=== PATIENT | female | born 1960 | race Hispanic/Latino ===

== ENCOUNTER 2017-05-16 08:44 | Day surgery (SDC) | payer MEDICARE ==
[2017-05-16] MEDS ORDERED: Lidocaine 1% Inj (20ml) ONE (11:59)
[2017-05-16] MEDS ORDERED: Bupivacaine 0.5% Inj(30mL) ONE (11:59)
[2017-05-16 12:52] VITALS: O2SAT 96
--- NOTE | 2017-05-16 13:09 | PCM.SURG1 ---
Surgeon's Initial Post Op Note - Surgeon's Notes Surgeon: Dr. Vogel Pipe Bowls Paint Trimmer: Valerie PGY1 Type of Anesthesia: Local Pre-Operative Diagnosis: left scalp mass Operative Findings: see operative report Post-Operative Diagnosis: same Operation Performed: Excision of left scalp mass Specimen/Specimens Removed: left scalp mass Estimated Blood Loss: EBL {In ML}: 5 Blood Products Given: N/A Drains Used: No Drains Post-Op Condition: Good Date of Surgery/Procedure: 05/16/17 Time of Surgery/Procedure: 13:08
[2017-05-16 13:24] VITALS: RESP 18; TEMP 98.1
[2017-05-16 13:33] VITALS: BMI 21.9
[2017-05-16 14:08] VITALS: BP 124/70; PULSE 98
--- NOTE | 2017-05-17 08:27 | OP ---
PROCEDURE DATE: 05/16/2017 PREOPERATIVE DIAGNOSIS: Left temporal scalp mass measuring 4.4 x 3 cm. POSTOPERATIVE DIAGNOSIS: Left temporal scalp mass measuring 4.4 x 3 cm. PROCEDURE PERFORMED: Excision of the left temporal subcutaneous mass with layered closure. SURGEON: Dr. Vogel. ELECTRIC MOTOR FITTER: Dr. Padilla. TYPE OF ANESTHESIA: Local anesthesia. ESTIMATED BLOOD LOSS: Minimal. SPECIMEN: Subcutaneous mass representing lipoma. DESCRIPTION OF PROCEDURE: The patient is a 56-year-old female who was complaining of a mass on the left temporal area associated with tenderness and discomfort. The mass was increasing in size when she was seen in the office and was scheduled for the excision of the mass. The patient was brought to the operating room and placed on operating room table in supine position. The patient was connected to the EKG, blood pressure, and pulse oximetry monitors. The patient then was prepped and draped in the usual sterile fashion. First, a standard time-out procedure took place and everybody in the room agreed as to the patient's identity, diagnosis, and procedure to be performed. Using 1% lidocaine mixed with Marcaine, the area of the incision was infiltrated and an incision was made in order to excise the lesion. The excision was located directly over the mass. Once the incision was made for about 4 cm, I then carefully dissected out the area exposed the lipoma. It was carefully raised from the underlying periosteum and completely removed. The wound was copiously irrigated and then closed using 3-0 Vicryl for the deep dermal layer and 4-0 Monocryl for skin. A sterile Dermabond dressing was applied to the wound. The patient tolerated the procedure and there were no complications. The patient was awakened and transferred to the recovery room for further observation. Rafat Vogel MD
== END 2017-05-16 14:30 | disposition home or self-care (01) ==
LOC: OPSURG 08:44
PROVIDERS: ATTEND General Practice
DX: D17.0 Benign lipomatous neoplasm of skin and subcutaneous tissue of head, face and neck (principal); F31.9 Bipolar disorder, unspecified; Z88.6 Allergy status to analgesic agent

== ENCOUNTER 2018-01-26 11:00 | Emergency (ER) | payer MEDICARE ==
[2018-01-26 11:06] VITALS: BMI 21.1
[2018-01-26 11:19] VITALS: RESP 18; TEMP 98.2
--- NOTE | 2018-01-26 12:50 | ED PDOC ---
Arrival/HPI <Cassie Zamarripa - Last Filed: 01/26/18 15:39> - History of Present Illness Narrative History of Present Illness (Text): 01/26/18 12:50 Pt is a 57 yo F with pmhx of bipolar disorder and chronic arthritis of the neck, who presents to the ED for b/l leg pain. She states that her pain is currently an 8/10 and is diffusely present in both the legs equally. She states that her legs felt heavy and having a throbbing type pain, she is able to move her legs but complains of pain in the legs when she plantar or dorsiflexes, and flexes or extends her knees. She admits to being bed ridden for the past 3 days and she also admits that her legs feel like "cement blocks". She admits to subjective fevers, headache, abd pain, diarrhea, leg pain, vomiting. She denies chest pain, SOB, cough, dysuria or frequency. Pmhx: Bipolar disorder, chronic arthritis of c-spine Pshx: All: Acetaminophen - RLS Soc: Quit smoking last week, smoked for 40 years before then, denies etoh or illicit drug use Fam: Denies <Leeroy Jeffersonhammad - Last Filed: 01/26/18 16:13> - General Chief Complaint: Lower Extremity Problem/Injury Time Seen by Provider: 01/26/18 11:47 Past Medical History - Provider Review Nursing Documentation Reviewed: Yes - Infectious Disease Hx of Infectious Diseases: None - Tetanus Immunization Tetanus Immunization: Unknown - Past Medical History Past Medical History: No Previous - Cardiac Hx Pacemaker: No - Pulmonary Hx Respiratory Disorders: No - Neurological Hx Paralysis: No - HEENT Hx HEENT Disorder: No - Renal Hx Renal Disorder: No - Endocrine/Metabolic Hx Endocrine Disorders: No - Hematological/Oncological Hx Blood Transfusions: No - Integumentary Hx Dermatological Disorder: No - Musculoskeletal/Rheumatological Hx Musculoskeletal Disorders: Yes Hx Falls: Yes - Gastrointestinal Hx Gastrointestinal Disorders: No - Genitourinary/Gynecological Hx Genitourinary Disorders: No - Psychiatric Hx Emotional Abuse: No Hx Physical Abuse: No Hx Substance Use: No - Past Surgical History Past Surgical History: No Previous - Surgical History Other/Comment: oophorectomy - Anesthesia Hx Anesthesia Reactions: No Hx Malignant Hyperthermia: No - Suicidal Assessment Feels Threatened In Home Enviroment: No <Slim Jefferson - Last Filed: 01/26/18 16:13> Family/Social History - Physician Review Nursing Documentation Reviewed: Yes Family/Social History: No Known Family HX Smoking Status: Heavy Smoker > 10 Cigarettes Daily Hx Alcohol Use: No Hx Substance Use: No Hx Substance Use Treatment: No <Slim Jefferson - Last Filed: 01/26/18 16:13> Allergies/Home Meds <DallinCassie - Last Filed: 01/26/18 15:39> <Slim Jefferson - Last Filed: 01/26/18 16:13> Allergies/Adverse Reactions: Allergies acetaminophen Adverse Reaction (Severe, Verified 01/26/18 11:07) NAUSEA aspirin Adverse Reaction (Severe, Verified 01/26/18 11:07) NAUSEA Home Medications: Home Meds Medication Instructions Recorded Confirmed Buspirone HCl 15 mg PO TID 05/26/16 05/16/17 Clonazepam [Klonopin] 0.5 mg PO BID 05/26/16 05/16/17 HYDROmorphone [Dilaudid 2 mg Tab] 2 mg PO 5XD 05/26/16 05/16/17 Mirtazapine [Remeron] 30 mg PO HS 05/26/16 05/16/17 Paroxetine HCl [Paxil] 40 mg PO DAILY 05/26/16 05/16/17 QUEtiapine [SEROquel XR] 300 mg PO HS 05/26/16 05/16/17 QUEtiapine [SEROquel] 100 mg PO HS 05/26/16 05/16/17 Temazepam [Restoril] 15 mg PO HS 05/26/16 05/16/17 Fentanyl [Duragesic Patch] 1 patch TD Q72 05/16/17 05/16/17 Mirtazapine [Remeron] 30 mg PO HS 05/16/17 05/16/17 traMADol [Ultram] 50 mg PO Q6 PRN 05/16/17 05/16/17 Review of Systems - Physician Review All systems were reviewed & negative as marked: Yes - Review of Systems Constitutional: Fevers. absent: Weight Change, Night Sweats Respiratory: absent: SOB, Cough Cardiovascular: absent: Chest Pain Gastrointestinal: Abdominal Pain, Diarrhea, Vomiting. absent: Constipation, Nausea <Slim Jefferson - Last Filed: 01/26/18 16:13> Physical Exam Vital Signs Temp Pulse Resp BP Pulse Ox 01/26/18 13:07 98.2 F 97 H 18 150/90 98 01/26/18 11:00 98.2 F 107 H 18 153/99 H 98 <Cassie Zamarripa - Last Filed: 01/26/18 15:39> Vital Signs Reviewed: Yes Vital Signs Temp Pulse Resp BP Pulse Ox 01/26/18 11:00 98.2 F 107 H 18 153/99 H 98 Temperature: Afebrile Blood Pressure: Hypertensive Pulse: Tachycardic Respiratory Rate: Normal Appearance: Positive for: Well-Appearing, Non-Toxic Pain Distress: Mild Mental Status: Positive for: Alert and Oriented X 3 - Systems Exam Head: Present: Atraumatic, Normocephalic Pupils: Present: PERRL Extroacular Muscles: Present: EOMI Conjunctiva: Present: Normal Respiratory/Chest: Present: Clear to Auscultation, Good Air Exchange. No: Respiratory Distress, Accessory Muscle Use, Wheezes, Rales, Rhonchi Cardiovascular: Present: Regular Rate and Rhythm, Normal S1, S2. No: Murmurs, Rub, Gallop Abdomen: Present: Tenderness (present in LUQ with palpation, no radiation), Normal Bowel Sounds. No: Distention, Rebound, Guarding Lower Extremity: Present: Normal Inspection, Tenderness (diffuse tenderness upon palpation, present b/l. Skin is intact, no rashes present. No swelling or pitting edema noted on exam.), Neurovascularly Intact, Capillary Refill < 2 s. No: Edema, Cyanosis, Swelling, Erythema, Deformity Neurological: Present: GCS=15, Speech Normal, Motor Func Grossly Intact, Normal Sensory Function, Gait Normal (Walked with the pt, no difficulty in transition from stretcher to chair, ambulated to bathroom with my supervision, no assistance needed when tranisitoning from standing to toilet and back to standing.) Skin: Present: Warm, Dry, Normal Color. No: Rashes Psychiatric: Present: Alert, Oriented x 3, Normal Insight, Normal Concentration <Slim Jefferson - Last Filed: 01/26/18 16:13> Medical Decision Making ED Course and Treatment: 01/26/18 14:30 57 year old female presents to the Emergency Department complaining of bilateral leg discomfort. In agreement with resident note. Patient was seen and evaluated with resident, came up with plan and treatment together. - Lab Interpretations Lab Results: 01/26/18 13:00 01/26/18 13:00 Lab Results 01/26/18 14:20: Urine Color Yellow, Urine Appearance Clear, Urine pH 7.0, Ur Specific Superior 1.010, Urine Protein Negative, Urine Glucose (UA) Negative, U rine Ketones Negative, Urine Blood Trace-intact H, Urine Nitrate Negative, Urine Bilirubin Negative, Urine Urobilinogen 0.2, Ur Leukocyte Esterase Negative, Urine RBC 1 - 3, Urine WBC 0 - 2, Ur Epithelial Cells 6 - 8, Amorphous Sediment Few, Urine Bacteria Many, Urine Other Uyeast 01/26/18 14:20: Urine Opiates Screen Positive H, Urine Methadone Screen Negative, Ur Barbiturates Screen Negative, Ur Phencyclidine Scrn Negative, Ur Amphetamines Screen Negative, U Benzodiazepines Scrn Negative, U Oth Cocaine Metabols Negative, U Cannabinoids Screen Negative 01/26/18 13:00: Sodium 140, Potassium 3.7, Chloride 107, Carbon Dioxide 26, Anion Gap 11, BUN 3 L, Creatinine 0.7, Est GFR ( Amer) > 60, Est GFR (Non-Af Amer) > 60, Random Glucose 109, Calcium 9.0, Phosphorus 3.0, Magnesium 2.1, Total Bilirubin 0.3, AST 24, ALT 16, Alkaline Phosphatase 121, Total Creatine Kinase 49, Total Protein 7.4, Albumin 4.0, Globulin 3.3, Albumin/Globulin Ratio 1.2 01/26/18 13:00: WBC 10.4, RBC 4.75, Hgb 14.6, Hct 42.6, MCV 89.7, MCH 30.7, MCHC 34.3, RDW 14.9 H, Plt Count 375, MPV 8.6, Gran % 72.7 H, Lymph % (Auto) 20.4 L, Lucas % (Auto) 6.5 H, Eos % (Auto) 0.2 L, Baso % (Auto) 0.2, Gran # 7.57 H, Lymph # (Auto) 2.1, Lucas # (Auto) 0.7 H, Eos # (Auto) 0.0, Baso # (Auto) 0.02 - RAD Interpretation Radiology Orders: 01/26/18 12:34 DUPLEX LOWER EXTRM VEIN BILAT [US] Stat <Cassie Zamraripa - Last Filed: 01/26/18 15:39> ED Course and Treatment: 01/26/18 13:59 Pt is a 57 yo F with pmhx detailed above who presents for b/l leg pain. - CBC - CMP - CK - B/l leg doppler 01/26/18 15:09 Progress Note Pts CK and trops are wnl, no elevated WBC and no anemia noted, LFTs are also wnl. Report from leg doppler per radiologist: No sonographic evidence for DVT, in the visualized segments of both LE. Pt is encouraged to f/u with PMD for further f/u of the symptoms. - RAD Interpretation Radiology Orders: 01/26/18 12:34 DUPLEX LOWER EXTRM VEIN BILAT [US] Stat <Slim Jefferson - Last Filed: 01/26/18 16:13> - PA / MECHANICAL CAR CHECKER / Resident Statement / has reviewed & agrees with the documentation as recorded. / has examined the patient and agrees with the treatment plan. - Scribe Statement The provider has reviewed the documentation as recorded by the Scribe Herberth Chatterjee. All medical record entries made by the Scribe were at my direction and personally dictated by me. I have reviewed the chart and agree that the record accurately reflects my personal performance of the history, physical exam, medical decision making, and the department course for this patient. I have also personally directed, reviewed, and agree with the discharge instructions and disposition. <Cassie Zamarripa - Last Filed: 01/26/18 15:39> Disposition/Present on Arrival <Cassie Zamarripa - Last Filed: 01/26/18 15:39> - Present on Arrival Any Indicators Present on Arrival: No History of DVT/PE: No History of Uncontrolled Diabetes: No Urinary Catheter: No History of Decub. Ulcer: No History Surgical Site Infection Following: None - Disposition Have Diagnosis and Disposition been Completed?: Yes Disposition Time: 15:20 Patient Plan: Discharge <Slim Jefferson - Last Filed: 01/26/18 16:13> - Disposition Diagnosis: Leg pain, diffuse Disposition: HOME/ ROUTINE Patient Problems: Current Active Problems Problem Status Onset Leg pain, diffuse Acute Condition: STABLE Discharge Instructions (ExitCare): Muscle and Bone Pain (DC) Additional Instructions: SURYA FUENTES, thank you for letting us take care of you today. Your provider was Dr. Zamarripa and you were treated for BILATERAL LEG PAIN. The emergency medical care you received today was directed at your acute symptoms. If you were prescribed any medication, please fill it and take as directed. It may take several days for your symptoms to resolve. Return to the Emergency Department if your symptoms worsen, do not improve, or if you have any other problems. Please contact your doctor Dr. Dao in 1-2 days to follow up. Bring any paperwork you were given at discharge with you along with any medications you are taking to your follow up visit. Our treatment cannot replace ongoing medical care by a primary care provider outside of the emergency department. Thank you for allowing the [facility] team to be part of your care today. Forms: [employer] ([place])
[2018-01-26 13:18] LABS: BASO # 0.02 K/mm3 (0.0-2.0); BASO % 0.2 % (0.0-3.0); EOS % 0.2 % (1.5-5.0); GRAN # 7.57 (1.4-6.5); GRAN % 72.7 % (50.0-68.0); HEMOGLOBIN 14.6 g/dL (12.0-16.0); LYMPH # 2.1 (1.2-3.4); LYMPH % 20.4 % (22.0-35.0); MEAN CELL VOLUME 89.7 fl (80.0-105.0); MEAN CORPUSCULAR HEMOGLOBIN 30.7 pg (25.0-35.0); MEAN CORPUSCULAR HGB CONC 34.3 g/dl (31.0-37.0); MEAN PLATELET VOLUME 8.6 fl (7.0-11.0); MONO # 0.7 (0.1-0.6); MONO % 6.5 % (1.0-6.0); RBC 4.75 10^6/uL (3.5-6.1); RED CELL DISTRIBUTION WIDTH 14.9 % (11.5-14.5); WHITE BLOOD COUNT 10.4 10^3/ul (4.5-11.0)
[2018-01-26 13:26] LABS: ALB/GLOB RATIO 1.2 (1.1-1.8); ALT/SGPT 16 U/L (7-56); AST/SGOT 24 U/L (14-36); BLOOD UREA NITROGEN 3 mg/dL (7-21); GFR NON-AFRICAN AMERICAN > 60
[2018-01-26 14:41] LABS: URINE BILIRUBIN NEGATIVE (NEGATIVE); URINE BLOOD TRACE-INTACT (NEGATIVE); URINE GLUCOSE (UA) NEGATIVE (NEGATIVE); URINE LEUKOCYTE ESTERASE NEGATIVE Leu/uL (NEGATIVE); URINE PROTEIN NEGATIVE mg/dL (<30 mg/dL); URINE UROBILINOGEN 0.2 E.U./dL (<1 E.U./dL)
[2018-01-26 14:42] LABS: URINE APPEARANCE CLEAR (CLEAR); URINE COLOR YELLOW (YELLOW)
[2018-01-26 14:56] LABS: URINE AMORPHOUS SEDIMENT FEW; URINE BACTERIA MANY (NEG); URINE WBC 0 - 2 /hpf (0-6)
[2018-01-26 15:00] LABS: BENZODIAZEPINES, UR NEGATIVE (NEGATIVE)
--- NOTE | 2018-01-26 15:07 | US ---
HISTORY: Leg pain and swelling. Evaluate for DVT PHYSICIAN(S): Tom Low MD. TECHNIQUE: Duplex sonography and color-flow Doppler with graded compression were used to evaluate the deep venous systems of both lower extremities. FINDINGS: The visualized deep venous systems of both lower extremities are sonographically normal and compressible. Normal wave forms and augmentation are seen. There is no sonographic evidence for deep venous thrombosis in the visualized segments of both lower extremities. IMPRESSION: No sonographic evidence for deep venous thrombosis in the visualized segments of both lower extremities.
[2018-01-26 15:30] LABS: BARBITURATES, UR NEGATIVE (NEGATIVE); OPIATES, UR POSITIVE (NEGATIVE); PHENCYCLIDINE, UR NEGATIVE (NEGATIVE)
[2018-01-26 16:03] VITALS: BP 147/89; PULSE 90; O2SAT 100
== END 2018-01-26 16:07 | disposition home or self-care (01) ==
LOC: ED 11:00
DX: M79.605 Pain in left leg (principal); M79.604 Pain in right leg; M46.92 Unspecified inflammatory spondylopathy, cervical region
CPT/HCPCS: 80053; 81001; 82550; 83735; 84100; 85025; 93970; 99284; G0480

== ENCOUNTER 2018-02-15 14:46 | Inpatient (IN) | payer MEDICARE, OTHER ==
[2018-02-15 14:51] VITALS: BMI 23.3
--- NOTE | 2018-02-15 14:57 | ED PDOC ---
Arrival/HPI - General Chief Complaint: Hip Pain Time Seen by Provider: 02/15/18 14:57 Historian: Patient - History of Present Illness Narrative History of Present Illness (Text): 02/15/18 15:28 A 57 year old female, whose past medical history includes sciatica, bipolar disorder and chronic arthritis of the neck, presents to the emergency department complaining of left hip, knee, leg, and foot pain for the past few days. Patient reports she is unable to ambulate well due to pain. Patient denies any fall/trauma, back pain, or any other complaints at this time. No PMD Past Medical History - Provider Review Nursing Documentation Reviewed: Yes - Infectious Disease Hx of Infectious Diseases: None - Tetanus Immunization Tetanus Immunization: Unknown - Reproductive Menopause: No - Past Medical History Past Medical History: No Previous - Cardiac Hx Pacemaker: No - Pulmonary Hx Respiratory Disorders: No - Neurological Hx Paralysis: No - HEENT Hx HEENT Disorder: No - Renal Hx Renal Disorder: No - Endocrine/Metabolic Hx Endocrine Disorders: No - Hematological/Oncological Hx Blood Transfusions: No - Integumentary Hx Dermatological Disorder: No - Musculoskeletal/Rheumatological Hx Musculoskeletal Disorders: Yes Hx Falls: Yes - Gastrointestinal Hx Gastrointestinal Disorders: No - Genitourinary/Gynecological Hx Genitourinary Disorders: No - Psychiatric Hx Emotional Abuse: No Hx Physical Abuse: No Hx Substance Use: No - Past Surgical History Past Surgical History: No Previous - Surgical History Other/Comment: oophorectomy - Anesthesia Hx Anesthesia Reactions: No Hx Malignant Hyperthermia: No - Suicidal Assessment Feels Threatened In Home Enviroment: No Family/Social History - Physician Review Nursing Documentation Reviewed: Yes Family/Social History: No Known Family HX Smoking Status: Heavy Smoker > 10 Cigarettes Daily Hx Alcohol Use: No Hx Substance Use: No Hx Substance Use Treatment: No Allergies/Home Meds Allergies/Adverse Reactions: Allergies acetaminophen Adverse Reaction (Severe, Verified 01/26/18 11:07) NAUSEA aspirin Adverse Reaction (Severe, Verified 01/26/18 11:07) NAUSEA Home Medications: Home Meds Medication Instructions Recorded Confirmed Buspirone HCl 15 mg PO TID 05/26/16 05/16/17 Clonazepam [Klonopin] 0.5 mg PO BID 05/26/16 05/16/17 HYDROmorphone [Dilaudid 2 mg Tab] 2 mg PO 5XD 05/26/16 05/16/17 Paroxetine HCl [Paxil] 40 mg PO DAILY 05/26/16 05/16/17 QUEtiapine [SEROquel XR] 300 mg PO HS 05/26/16 05/16/17 QUEtiapine [SEROquel] 100 mg PO HS 05/26/16 05/16/17 RX: Mirtazapine [Remeron] 30 mg PO HS 05/26/16 05/16/17 Temazepam [Restoril] 15 mg PO HS 05/26/16 05/16/17 Fentanyl [Duragesic Patch] 1 patch TD Q72 05/16/17 05/16/17 RX: Mirtazapine [Remeron] 30 mg PO HS 05/16/17 05/16/17 RX: traMADol [Ultram] 50 mg PO Q6 PRN 05/16/17 05/16/17 Review of Systems - Physician Review All systems were reviewed & negative as marked: Yes - Review of Systems Constitutional: absent: Other (no falls) Musculoskeletal: Other (left hip, leg, foot, and knee pain; unable to ambulate due to pain.). absent: Back Pain Physical Exam Vital Signs Reviewed: Yes Vital Signs Temp Pulse Resp BP Pulse Ox 02/15/18 14:51 98.6 F 72 20 104/67 99 Temperature: Afebrile Blood Pressure: Normal Pulse: Regular Respiratory Rate: Normal Appearance: Positive for: Well-Appearing, Non-Toxic, Comfortable Pain Distress: None Mental Status: Positive for: Alert and Oriented X 3 - Systems Exam Head: Present: Atraumatic, Normocephalic Pupils: Present: PERRL Extroacular Muscles: Present: EOMI Conjunctiva: Present: Normal Mouth: Present: Moist Mucous Membranes Neck: Present: Normal Range of Motion Respiratory/Chest: Present: Clear to Auscultation, Good Air Exchange. No: Respiratory Distress, Accessory Muscle Use Cardiovascular: Present: Regular Rate and Rhythm, Normal S1, S2. No: Murmurs Abdomen: No: Tenderness, Distention, Peritoneal Signs Back: Present: Normal Inspection, Other (PSIS left-side tenderness) Upper Extremity: Present: Normal Inspection. No: Cyanosis, Edema Lower Extremity: Present: Normal Inspection, Normal ROM, Other (left dorsal abrasion). No: Edema, Cyanosis, Erythema, Deformity Neurological: Present: GCS=15, CN II-XII Intact, Speech Normal Skin: Present: Warm, Dry, Normal Color. No: Rashes Psychiatric: Present: Alert, Oriented x 3, Normal Insight, Normal Concentration Medical Decision Making ED Course and Treatment: 02/15/18 15:26 Impression: 57 year old female with left hip, knee, leg, and foot pain. Plan: -- prednisone -- Reassess and disposition Prior Visits: Notes and results from previous visits were reviewed. Patient was last seen in the emergency department on 01/26/2018 for b/l leg pain. Patient was discharged home. Progress Notes: 02/15/18 17:06 Patient reports that she doesn't remember if she fell 3 days ago, but believes that the hematoma on her head is due to falling. Patient currently needs assistance to ambulate, and notes being unable to walk for the past 3 days. Will order head CT and X-ray of left hip. 02/15/18 18:55 Discussed with patient that her head CT was negative, and that her hip X-ray was negative for fractures but did show arthritis. Pending Urinalysis and UDS. Attempted to have patient stand and ambulate for a second time, but patient is unable to walk. Will order hip CT because she isn't ambulating. 02/15/18 19:03 Patient endorsed to . Pending hip CT, urinalysis, and UDS. - RAD Interpretation Narrative RAD Interpretations (Text): 02/15/18 17:[address] without contrast: Dictator : Madiha Sidhu MD FINDINGS: HEMORRHAGE: No intracranial hemorrhage. BRAIN: There are mild chronic microangiopathic changes. There is no mass, mass effect or abnormal extra-axial fluid collection. There is no territorial infarction. The midline sagittal structures are normal. VENTRICLES: There is mild age-related global parenchymal volume loss and proportionate enlargement of the ventricles and cortical sulci. CALVARIUM: There is no calvarial fracture or extracranial soft tissue swelling. PARANASAL SINUSES: Predominantly clear. MASTOID AIR CELLS: Predominantly clear. OTHER FINDINGS: None. IMPRESSION: No acute intracranial abnormality. Mild chronic microangiopathic changes and mild age-related global parenchymal volume loss. 02/15/18 18:34 Left Hip X-ray: Dictator : Madiha Sidhu MD IMPRESSION: No acute displaced fracture or dislocation. Please note occult fractures cannot be excluded on plain radiographs. If there is a persistent clinical concern, an MRI of the hip may be performed for further evaluation. Mild degenerative osteoarthrosis in the left hip joint. Tub Puller: Radiologist - Scribe Statement The provider has reviewed the documentation as recorded by the Sarithaibrex Calvo Provider Scribe Attestation: All medical record entries made by the Scribe were at my direction and personally dictated by me. I have reviewed the chart and agree that the record accurately reflects my personal performance of the history, physical exam, medical decision making, and the department course for this patient. I have also personally directed, reviewed, and agree with the discharge instructions and disposition. Disposition/Present on Arrival - Present on Arrival Any Indicators Present on Arrival: No History of DVT/PE: No History of Uncontrolled Diabetes: No Urinary Catheter: No History of Decub. Ulcer: No History Surgical Site Infection Following: None - Disposition Have Diagnosis and Disposition been Completed?: Yes Diagnosis: Leucocytosis, Hip pain, Myositis Disposition: HOSPITALIZED Disposition Time: 19:03 Patient Problems: Current Active Problems Problem Status Onset Hip pain Acute Leucocytosis Acute Myositis Acute Condition: STABLE
--- NOTE | 2018-02-15 17:47 | CT ---
Date of service: 02/15/2018 PROCEDURE: CT HEAD WITHOUT CONTRAST. HISTORY: head injury COMPARISON: None available. TECHNIQUE: Axial computed tomography images were obtained through the head/brain without intravenous contrast. Radiation dose: Total exam DLP = 859.6 mGy-cm. This CT exam was performed using one or more of the following dose reduction techniques: Automated exposure control, adjustment of the mA and/or kV according to patient size, and/or use of iterative reconstruction technique. FINDINGS: HEMORRHAGE: No intracranial hemorrhage. BRAIN: There are mild chronic microangiopathic changes. There is no mass, mass effect or abnormal extra-axial fluid collection. There is no territorial infarction. The midline sagittal structures are normal. VENTRICLES: There is mild age-related global parenchymal volume loss and proportionate enlargement of the ventricles and cortical sulci. CALVARIUM: There is no calvarial fracture or extracranial soft tissue swelling. PARANASAL SINUSES: Predominantly clear. MASTOID AIR CELLS: Predominantly clear. OTHER FINDINGS: None. IMPRESSION: No acute intracranial abnormality. Mild chronic microangiopathic changes and mild age-related global parenchymal volume loss.
--- NOTE | 2018-02-15 18:38 | RAD ---
PROCEDURE: Left Hip X-ray Radiographs. HISTORY: pain COMPARISON: None. FINDINGS: BONES: Bone alignment and mineralization are normal. There is no acute displaced fracture or bone destruction. JOINTS: The right hip joint space is preserved. There is mild degenerative osteoarthrosis in the left hip joint. SOFT TISSUES: Normal. OTHER FINDINGS: None. IMPRESSION: No acute displaced fracture or dislocation. Please note occult fractures cannot be excluded on plain radiographs. If there is a persistent clinical concern, an MRI of the hip may be performed for further evaluation. Mild degenerative osteoarthrosis in the left hip joint.
[2018-02-15 18:58] LABS: URINE BILIRUBIN MODERATE (NEGATIVE); URINE BLOOD LARGE (NEGATIVE); URINE GLUCOSE (UA) NEGATIVE (NEGATIVE); URINE LEUKOCYTE ESTERASE TRACE Leu/uL (NEGATIVE); URINE PROTEIN 30 mg/dL (<30 mg/dL); URINE UROBILINOGEN 0.2 E.U./dL (<1 E.U./dL)
[2018-02-15 18:59] LABS: URINE APPEARANCE SL CLOUDY (CLEAR); URINE COLOR YELLOW (YELLOW)
[2018-02-15 19:11] LABS: PHENCYCLIDINE, UR NEGATIVE (NEGATIVE)
--- NOTE | 2018-02-15 19:13 | ED PDOC ---
Physical Exam Vital Signs Temp Pulse Resp BP Pulse Ox 02/15/18 19:01 98.6 F 100 H 18 108/69 95 02/15/18 14:51 98.6 F 72 20 104/67 99 Temperature: Afebrile Blood Pressure: Normal Pulse: Regular Respiratory Rate: Normal Appearance: Positive for: Well-Appearing, Non-Toxic, Comfortable Pain Distress: None Mental Status: Positive for: Alert and Oriented X 3 - Systems Exam Respiratory/Chest: Present: Clear to Auscultation Cardiovascular: Present: Regular Rate and Rhythm Lower Extremity: Present: NORMAL PULSES, Other (TTP left lateral hip/thigh/no overlying erythema). No: Edema, CALF TENDERNESS Medical Decision Making ED Course and Treatment: 02/15/18 19:03 Patient endorsed to me by . Pending Hip CT, urinalysis, and UDS.Patient with hx.Bipolar disorder,arthritis of neck,sciatica presented with c/o left hip/leg pain. 02/15/18 20:26 CT of left hip w/o contrast reviewed, shows: FINDINGS: BONES: A tiny bone island is seen in the femoral head. No discrete fracture or dislocation. JOINTS: Mild degenerative changes are seen of the superior acetabulum. SOFT TISSUES: Subcutaneous swelling especially medially may represent cellulitis. Stranding is seen around throughout the musculature of uncertain etiology may represent myositis. No discrete collections are noted. No discrete masses are seen in the pelvis except for fecal retention of the sigmid rectum. IMPRESSION: 1. Subcutaneous swelling especially medially may represent cellulitis. 2. Stranding is seen around throughout the musculature of uncertain etiology may represent myositis. 3. No discrete collections are noted. 4. No discrete fracture or dislocation. 5. Mild degenerative changes are seen of the superior acetabulum. Electronically signed on Feb 15, 2018 8:19:03 PM EDT by: Sammy Mehta M.D., [place] Certified By [facility] Fellowship Trained MRI and CT Specialist 02/15/18 21:[address] Dao who is aware and agrees with plan, accepts patient into his service. Pt will be admitted to [facility] for hip pain, myositis, and cellulitis. - Lab Interpretations Lab Results: Lab Results 02/15/18 18:15: Urine Opiates Screen Pending, Urine Methadone Screen Negative, Ur Barbiturates Screen Pending, Ur Phencyclidine Scrn Negative, Ur Amphetamines Screen Negative, U Benzodiazepines Scrn Pending, U Oth Cocaine Metabols Pending, U Cannabinoids Screen Pending 02/15/18 18:15: Urine Color Yellow, Urine Appearance Sl cloudy, Urine pH 6.0, Ur Specific [place] >= 1.030, Urine Protein 30 H, Urine Glucose (UA) Negative, Urine Ketones 40 H, Urine Blood Large H, Urine Nitrate Negative, Urine Bilirubin Moderate H, Urine Urobilinogen 0.2, Ur Leukocyte Esterase Trace H, Urine RBC Pending, Urine WBC Pending I have reviewed the lab results: Yes - RAD Interpretation Radiology Orders: 02/15/18 17:07 HEAD W/O CONTRAST [CT] Stat 02/15/18 17:08 HIP MIN 4V W/ PELVIS LT [RAD] Stat 02/15/18 18:43 HIP WITHOUT CONTRAST LEFT [CT] Stat Floor Renovator: Radiologist - Medication Orders Current Medication Orders: Discontinued Medications Prednisone (Prednisone Tab) 60 mg PO STAT ONE Stop: 02/15/18 15:28 Last Admin: 02/15/18 15:46 Dose: 60 mg - Scribe Statement The provider has reviewed the documentation as recorded by the Elizabeth Chavez Provider Scribe Attestation: All medical record entries made by the Elizabeth were at my direction and personally dictated by me. I have reviewed the chart and agree that the record accurately reflects my personal performance of the history, physical exam, medical decision making, and the department course for this patient. I have also personally directed, reviewed, and agree with the discharge instructions and disposition. Disposition/Present on Arrival - Present on Arrival Any Indicators Present on Arrival: No History of DVT/PE: No History of Uncontrolled Diabetes: No Urinary Catheter: No History of Decub. Ulcer: No History Surgical Site Infection Following: None - Disposition Have Diagnosis and Disposition been Completed?: Yes Diagnosis: Leucocytosis, Hip pain, Myositis Disposition: HOSPITALIZED Disposition Time: 21:41 Patient Problems: Current Active Problems Problem Status Onset Hip pain Acute Leucocytosis Acute Myositis Acute Condition: STABLE
[2018-02-15 19:22] LABS: BARBITURATES, UR NEGATIVE (NEGATIVE); BENZODIAZEPINES, UR POSITIVE (NEGATIVE); OPIATES, UR POSITIVE (NEGATIVE)
[2018-02-15 19:55] LABS: URINE WBC 15 - 20 /hpf (0-6)
[2018-02-15 19:56] LABS: URINE BACTERIA MOD (NEG)
[2018-02-15] MEDS ORDERED: Morphine 4 mg/ml ISec IVP STA (20:26)
[2018-02-15 20:58] LABS: HEMOGLOBIN 13.9 g/dL (12.0-16.0); MEAN CELL VOLUME 92.1 fl (80.0-105.0); MEAN CORPUSCULAR HEMOGLOBIN 31.4 pg (25.0-35.0); MEAN CORPUSCULAR HGB CONC 34.2 g/dl (31.0-37.0); MEAN PLATELET VOLUME 9.4 fl (7.0-11.0); RBC 4.42 10^6/uL (3.5-6.1); RED CELL DISTRIBUTION WIDTH 14.6 % (11.5-14.5); WHITE BLOOD COUNT 19.1 10^3/uL (4.5-11.0)
[2018-02-15] MEDS ORDERED: Vancomycin 1 gm/D5W 200 ml 200 ML IV STA (21:38)
[2018-02-15] MEDS ORDERED: Piperacillin/Tazobact 3.375 gm 100 ML IV STA (21:38)
[2018-02-15] MEDS ORDERED: Vancomycin 1gm in NS 250ml 1 GM/250 ML BAG IVPB STA (21:42)
[2018-02-15 21:53] LABS: ALB/GLOB RATIO 1.1 (1.1-1.8); ALBUMIN 3.7 g/dL (3.0-4.8); ALT/SGPT 102 U/L (7-56); AST/SGOT 303 U/L (14-36); BLOOD UREA NITROGEN 19 mg/dL (7-21); CALCIUM 8.9 mg/dL (8.4-10.5); GFR NON-AFRICAN AMERICAN > 60
[2018-02-15] MEDS ORDERED: Sod Polystyrene Sulf 15 gm/60 ml Susp PO ONE (22:30)
[2018-02-16] MEDS ORDERED: Influenza Vaccine 60 mcg/0.5 mL SYR (4YR UP) IM ONE (03:54)
[2018-02-16] MEDS ORDERED: Pneumococcal 23-Valent Vaccine IM ONE (03:54)
[2018-02-16 07:52] LABS: BASO # 0.01 K/mm3 (0.0-2.0); BASO % 0.1 % (0.0-3.0); GRAN # 13.11 (1.4-6.5); GRAN % 75.3 % (50.0-68.0); HEMOGLOBIN 12.3 g/dL (12.0-16.0); LYMPH % 11.5 % (22.0-35.0); MEAN CELL VOLUME 91.5 fl (80.0-105.0); MEAN CORPUSCULAR HEMOGLOBIN 30.6 pg (25.0-35.0); MEAN CORPUSCULAR HGB CONC 33.4 g/dl (31.0-37.0); MONO # 2.3 (0.1-0.6); MONO % 13.1 % (1.0-6.0); RBC 4.02 10^6/uL (3.5-6.1); RED CELL DISTRIBUTION WIDTH 14.5 % (11.5-14.5); WHITE BLOOD COUNT 17.4 10^3/uL (4.5-11.0)
[2018-02-16 08:06] LABS: ALB/GLOB RATIO 1.1 (1.1-1.8); ALBUMIN 3.3 g/dL (3.0-4.8); ALT/SGPT 84 U/L (7-56); AST/SGOT 203 U/L (14-36); BLOOD UREA NITROGEN 23 mg/dL (7-21); CALCIUM 8.3 mg/dL (8.4-10.5); GFR NON-AFRICAN AMERICAN 57
--- NOTE | 2018-02-16 10:17 | US ---
Date of service: 02/16/2018 HISTORY: elevated LFTs COMPARISON: None. TECHNIQUE: Sonographic evaluation of the abdomen. FINDINGS: LIVER: Measures 17.2 cm. Normal echogenicity of the liver parenchyma. No mass. No intrahepatic bile duct dilatation. 1.8 cm cyst GALLBLADDER: Gallbladder removed COMMON BILE DUCT: Measures 10 mm. No stones. No dilatation. PANCREAS: Not visualized due to bowel gas RIGHT KIDNEY: Measures 10.6 x 4.2 x 4.4cm. Normal echogenicity. No calculus, mass, or hydronephrosis. LEFT KIDNEY: Measures 10.7 x 5.1 x 5.0cm. Normal echogenicity. No calculus, mass, or hydronephrosis. SPLEEN: Normal in size and contour. No mass. 8.3 x 3.7 x 3.8 AORTA: No aneurysmal dilatation. IVC: Unremarkable. OTHER FINDINGS: None. IMPRESSION: Unremarkable abdominal sonogram.
--- NOTE | 2018-02-16 10:29 | CT ---
Date of service: 02/15/2018 PROCEDURE: CT LEFT HIP WITHOUT CONTRAST HISTORY: diff amb/pain COMPARISON: Left hip radiograph series 02/15/2018 TECHNIQUE: A volumetric CT acquisition was performed through the left iliac crest through the pubic bones without intravenous contrast as requested. Reformatted dataset have been provided multiple planes by various algorithms. Radiation dose:Total exam DLP = 277.88 mGy-cm. This CT exam was performed using one or more of the following dose reduction techniques: Automated exposure control, adjustment of the mA and/or kV according to patient size, and/or use of iterative reconstruction technique. FINDINGS: There is no fracture dislocation of the left hip joint with moderate degenerative cortical sclerosis identified at the left hip joint. There is of bone island identified at the left femoral head with the neck, I lesser and greater trochanter as well as intertrochanteric region and remaining visualized proximal left femoral diaphysis unremarkable in appearance. Local soft tissues appear unremarkable and no destructive bony lesions appreciated the left pubic bones are intact with pubic symphysis intact as well. Local soft tissues in the pelvic reflect partially decompressed urinary bladder a gas within the rectum and distal sigmoid. IMPRESSION: No fracture, subluxation or dislocation. Moderate degenerative joint disease left hip joint. Concordant preliminary report from [facility], 02/15/2018.
--- NOTE | 2018-02-16 11:01 | MRI ---
Date of service: 02/16/2018 PROCEDURE: MR LUMBAR SPINE WITHOUT CONTRAST HISTORY: point tenderness, sciatic notch, weakness in foot COMPARISON: None available. TECHNIQUE: Multiecho multiplanar sequences were performed through the lumbar spine without the use of intravenous contrast. FINDINGS: Normal lumbar lordosis. Vertebral body heights are preserved. Edematous changes are identified from mid L3 through mid L4 vertebral bodies with limited fluid at the L3-4 intervertebral disc space. Trace prevertebral edema is identified associated and the pattern suspicious for discitis osteomyelitis. Type 2 endplate degenerative changes surround the L2-3 disc interspace with limited hydration remaining at the intervertebral disc at L2-3. Conus medullaris unremarkable at the level of L1. T12-L1: No disc herniation, spinal canal stenosis or neural foraminal narrowing. L1-2: No disc herniation. A circumferential disc osteophyte complex is appreciated without stenosis. L2-3: No disc herniation. A large disc osteophyte complex is appreciated with moderate joint facet degenerative changes encroaching the lateral recesses symmetrically without significant central canal stenosis otherwise evident. No significant neural foraminal stenosis bilaterally. L3-4: No disc herniation. Mild degenerative central stenosis results from a circumferential disc osteophyte complex combined with moderate to severe facet joint degenerative arthropathy. Moderate right and mild left degenerative neural foraminal stenoses are identified due to variation in size of lateral portions of disc osteophyte complex. No epidural fluid collection. L4-5: No disc herniation. A circumferential disc bulge is appreciated flattening the ventral thecal sac and encroaching the bilateral lateral recesses without causing significant central stenosis. No significant neural foraminal stenosis bilaterally. Moderate to severe bilateral facet joint arthropathy. L5-S1: Circumferential disc bulge is mild without disc herniation, central canal or neural foraminal stenosis bilaterally. Facet arthropathy appears moderate. OTHER FINDINGS: None. IMPRESSION: 1. 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 Prevertebral fluid is minimal and there is no loss of L3 or L4 vertebral body heights though endplates are questionably disrupted anteriorly. Limited fluid is seen in the intervertebral disc space. 2. Mild degenerative central stenosis L3-4, moderate right and mild left degenerative neural foraminal stenoses. No additional similar or worse spinal stenosis appreciable.
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
--- NOTE | 2018-02-16 13:20 | CON ---
DATE: 02/16/2018 REASON FOR CONSULT: Left hip pain. HISTORY OF PRESENT ILLNESS: This is a 57-year-old female who presented yesterday to the hospital with a two-day history of left hip pain. The patient does not recall any specific history of trauma, but states that she may have fallen and does not remember. She denies any other pain in any other extremity. She says that if she tries to get up and walk, she will fall because of the pain. She says the pain starts in left gluteal region and radiates down her left leg. She denies any groin pain. She denies any numbness or tingling going down the extremity. PHYSICAL EXAMINATION GENERAL: This is a female, in no apparent distress. She is awake, alert and oriented x3. NEUROLOGIC: She has 5/5 strength at L2, L3 and L4. She does have difficulty with ankle and first toe dorsiflexion. Sensation, she is intact to soft touch in all distributions. She has palpable pedal pulses. She has good capillary refill in all her toes. She has a negative straight leg raise on the right. On the left, she has some mild pain in the left gluteal region. She has no pain with passive internal and external rotation of the left hip or thigh. Calf is soft and nontender. DIAGNOSTIC DATA: X-rays of the left hip showed no acute fracture or dislocation. CAT scan of the left hip also showed no obvious fractures or dislocations. IMPRESSION: Lumbar pain with radiculopathy. PLAN: At this point, I feel like the etiology of her pain is secondary to her lumbar spine and not her hip. I recommended that an MRI of the lumbar spine be done. This was discussed with Dr. Cano and he agrees. We will follow once the MRI is complete. Benoit Landis MD
[2018-02-16] MEDS ORDERED: Vancomycin 2 GM in Sodium Chloride 0.9% 500 ML IVPB ONE (14:02)
[2018-02-16] MEDS ORDERED: Barium Sulfate Susp 2.1% w/v, 2.0% w/w 450 mL Bottle PO ONE (14:41)
[2018-02-16] MEDS: Meropenem IV 1 gm in NS 1 GM/50 ML BAG IVPB SCH ×2 (14:46→22:57)
[2018-02-16] MEDS: Enoxaparin 40 mg Syringe SC SCH (14:47)
[2018-02-16] MEDS: Vancomycin 1gm in NS 250ml 1 GM/250 ML BAG IVPB SCH (14:50)
[2018-02-16] MEDS ORDERED: Iohexol 350 MG/100 ML VIAL ONE (18:29)
[2018-02-16] MEDS ORDERED: TEMAZEPAM 15 MG PO SCH (22:00)
[2018-02-16] MEDS: QUEtiapine 300 mg XR Tab PO SCH (22:58)
[2018-02-17] MEDS: Vancomycin 1gm in NS 250ml 1 GM/250 ML BAG IVPB SCH ×2 (03:06→13:55)
--- NOTE | 2018-02-17 04:54 | CON ---
DATE: 02/16/2018 The patient is now at room# 567, bed 1. The patient was away on a test; I attempted to see the patient earlier, she was away. CHIEF COMPLAINT: The patient was seen in the emergency room yesterday by Dr. Scottie Dempsey, complaining of pain times several days. HISTORY OF PRESENT ILLNESS: This is a 57-year-old female who was seen earlier in the emergency room by Dr. Sanya Zamarripa, who gives a history of sciatica, bipolar disorder, chronic arthritis of the neck, complaining of left hip pain, knee pain, leg and foot pain for the past several days, weakness, unable to ambulate. She denied any fevers, any chills, nausea, or vomiting. No abdominal pain, diarrhea, or constipation. This morning, she gives me the history that she was having fevers at home, and she took her temperature at home, was up to 101. No chills, no abdominal pain. No dysuria or frequency. No headaches or blurry vision. She is having back pain, she has a history of back pain. She states it is not necessarily worse. PAST MEDICAL HISTORY: Significant for sciatica, bipolar, depression, and chronic arthritis. PAST SURGICAL HISTORY: Significant for appendectomy, cholecystectomy, , oophorectomy. ALLERGIES: PATIENT IS ALLERGIC TO ASPIRIN AND ACETAMINOPHEN. MEDICATIONS AT HOME: Include Seroquel, Paxil, Remeron, Dilaudid, fentanyl, and Tramadol. PHYSICAL EXAMINATION: GENERAL: The patient is in bed, answering questions appropriately. VITAL SIGNS: Temperature of 98.6; pulse of 95, it was up to 100; respiratory rate of 20. Blood pressure is 114/60. The patient is at 91% saturation on room air. The patient's BMI is 23. HEENT: Unremarkable. NECK: Supple. LUNGS: Decreased breath sounds. HEART: Normal S1, S2. ABDOMEN: Soft and nontender. No organomegaly, no rebound, no guarding. No masses. LABORATORY DATA: Laboratory examination reveals a white count of 19,100, hemoglobin of 13, platelets of 392,000. Chemistries reveal a BUN of 19, creatinine of 0.8, AST of 303, ALT of 102. Urinalysis is noted, significant for 15 to 20 wbc's, moderate bacteriuria, benzodiazepine screen is positive. Opiates are positive. Microbiology is pending. The patient had a CAT scan of the head which was reported to be no acute changes. The patient had an x-ray of the hip with mild degenerative changes and a CAT scan of the hip which showed degenerative changes. The patient had an MRI of the spine which reveals L3-L4 discitis and osteomyelitis without a definite epidural abscess appreciated. Pre-retrieval fluid is minimal. Dr. Landis's consultation is reviewed and his impression is lumbar pain and radiculopathy. History and physical examination by Dr. Rodolfo Mccarthy is noted. ASSESSMENT AND PLAN: This is a 57-year-old female with depression, bipolar and sciatica, admitted with leukocytosis, tachycardia, discitis. On exam, patient's left leg has 3/5 motor function; on the right it is 5/5. Sepsis with L3-L4 discitis and osteomyelitis. I have contacted Dr. Dao. Recommended stat Neurosurgical consultation. Also, Dr. Osiel Goldstein, Neurology consultation. We will start the patient empirically on vancomycin and meropenem. I have also called Dr. Tom Low on a stat consultation for CAT scan guided aspirate, and we will order pancultures, blood cultures, urine cultures, order a CAT scan of the abdomen and pelvis to rule out a psoas abscess as a possible source and vancomycin, meropenem, HIV test considering the patient's age, and hepatitis profile. We will make further recommendations upon the availability of the initial results and follow with you. Case discussed with Dr. Dao. Jose Alfredo White MD
[2018-02-17] MEDS: Meropenem IV 1 gm in NS 1 GM/50 ML BAG IVPB SCH ×3 (06:02→20:59)
[2018-02-17 07:17] LABS: BASO # 0.02 K/mm3 (0.0-2.0); BASO % 0.2 % (0.0-3.0); EOS # 0.2 (0.0-0.7); EOS % 1.5 % (1.5-5.0); GRAN # 7.5 (1.4-6.5); GRAN % 57.3 % (50.0-68.0); HEMOGLOBIN 12.3 g/dL (12.0-16.0); LYMPH % 30.8 % (22.0-35.0); MEAN CELL VOLUME 92.1 fl (80.0-105.0); MEAN CORPUSCULAR HEMOGLOBIN 30.2 pg (25.0-35.0); MEAN CORPUSCULAR HGB CONC 32.8 g/dl (31.0-37.0); MEAN PLATELET VOLUME 8.9 fl (7.0-11.0); MONO # 1.3 (0.1-0.6); MONO % 10.2 % (1.0-6.0); RBC 4.07 10^6/uL (3.5-6.1); RED CELL DISTRIBUTION WIDTH 14.6 % (11.5-14.5); WHITE BLOOD COUNT 13.1 10^3/uL (4.5-11.0)
[2018-02-17 08:07] LABS: ALBUMIN 3.1 g/dL (3.0-4.8); ALT/SGPT 71 U/L (7-56); AST/SGOT 149 U/L (14-36); BLOOD UREA NITROGEN 19 mg/dL (7-21); CALCIUM 8.3 mg/dL (8.4-10.5); GFR NON-AFRICAN AMERICAN > 60
--- NOTE | 2018-02-17 09:42 | CP.PCM.PN ---
<Rodolfo Mccarthy - Last Filed: 02/17/18 10:06> Subjective - Date & Time of Evaluation Date of Evaluation: 02/17/18 Time of Evaluation: 07:25 - Subjective Subjective: Rodolfo Mccarthy DO, PGY-2: Progress Note for Dr. Dao Patient was seen and examined at bedside. Patient reports pain is well controlled on current regiment. She denies any fever, chills, nausea or vomiting. Case was discussed with Interventional Radiology, Infectious Disease, as well as Neurosurgery. Objective - Vital Signs/Intake and Output Vital Signs (last 24 hours): Temp Pulse Resp BP Pulse Ox 98.2 F 81 20 119/72 96 02/17/18 08:38 02/17/18 08:38 02/17/18 08:38 02/17/18 08:38 02/17/18 08:38 Intake and Output: 02/17/18 02/17/18 06:59 18:59 Intake Total 660 Balance 660 - Medications Medications: Current Medications Buspirone HCl (Buspar) 15 mg PO TID MIMI Last Admin: 02/16/18 17:08 Dose: 15 mg Clonazepam (Klonopin) 0.5 mg PO BID MIMI; Protocol Last Admin: 02/16/18 17:08 Dose: 0.5 mg Enoxaparin Sodium (Lovenox) 40 mg SC DAILY MIMI; Protocol Last Admin: 02/16/18 14:47 Dose: 40 mg Fentanyl (Duragesic) 1 patch TD Q72 MIMI Last Admin: 02/16/18 09:18 Dose: 1 patch Hydromorphone HCl (Dilaudid) 2 mg PO Q4 PRN PRN Reason: Pain, severe (8-10) Last Admin: 02/17/18 03:33 Dose: 2 mg Meropenem (Merrem Iv 1 Gm Premix) 1 gm in 50 mls @ 100 mls/hr IVPB Q8 MIMI; Protocol Stop: 02/25/18 14:32 Last Admin: 02/17/18 06:02 Dose: 100 mls/hr Vancomycin HCl (Vancomycin 1gm) 1 gm in 250 mls @ 167 mls/hr IVPB Q12H MIMI; Protocol Last Admin: 02/17/18 03:06 Dose: 167 mls/hr Mirtazapine (Remeron) 30 mg PO HS MIMI Last Admin: 02/16/18 22:57 Dose: 30 mg Non-Formulary Medication (Temazepam [Restoril]) 15 mg PO HS [facility] Paroxetine HCl (Paxil) 40 mg PO DAILY MIMI Last Admin: 02/16/18 09:18 Dose: 40 mg Quetiapine Fumarate (Seroquel Xr) 300 mg PO HS [facility]; Protocol Last Admin: 02/16/18 22:58 Dose: 300 mg - Labs Labs: 02/17/18 06:45 02/17/18 06:45 - Constitutional Appears: Non-toxic, Older Than Stated Age - Head Exam Head Exam: ATRAUMATIC, NORMOCEPHALIC - Eye Exam Eye Exam: EOMI, Normal appearance - ENT Exam ENT Exam: Mucous Membranes Moist - Neck Exam Neck Exam: Normal Inspection - Respiratory Exam Respiratory Exam: Clear to Ausculation Bilateral, NORMAL BREATHING PATTERN. absent: Accessory Muscle Use - Cardiovascular Exam Cardiovascular Exam: RRR, +S1, +S2 - GI/Abdominal Exam GI & Abdominal Exam: Soft, Normal Bowel Sounds. absent: Rebound - Extremities Exam Extremities Exam: Normal Inspection. absent: Calf Tenderness - Back Exam Back Exam: paraspinal tenderness (left sciatic notch and down left medial gluteal region) - Neurological Exam Neurological Exam: Awake, Oriented x3 - Psychiatric Exam Psychiatric exam: Flat Affect - Skin Skin Exam: Dry, Intact, Normal Color, Warm Assessment and Plan - Assessment and Plan (Free Text) Assessment: 57 year old female with a past medical history of sciatica, affective disorder, and falls who presents with inability to move left leg and MRI of lumbar spine shows findings suspicious for diskitis osteomyelitis. Neurosurgery, neurology, interventional radiology and ID are following. Plan: 1) Left leg weakness: Diskitis Osteomyelitis - MRI of lumbar spine shows findings most compatible with L3-L4 discitis osteomyelitis without definitive epidural abscess appreciated at this time. Prevertebral fluid fluid is minimal and there is no loss of L3 or L4 vertebral body heights though endplates are questionably disrupted anteriorly. Limited fluid is seen in the intervertebral disc space. - ESR is 51 CRP is 225 - Vancomycin 1 gram q12h mimi - Meropenem 1 gram q8h mimi - ID recommendations appreciated - Biopsy of the affected area to be performed by Interventional Radiology - Blood cultures and urine cultures pending - CT abdomen and pelvis preliminary read shows bibasilar scarring versus atelectasis, right hepatic lobe cyst or hemangioma, and cholecystecomy. - Neurosurgery has been consulted - Neurology consulted, Dr. Goldstein 2) Anxiety disorder - Clonazepam 0.5 mg BID - Paroxetine 40 mg PO HS 3) Chronic nerve pain - Hydromorphone 2 mg q4h PO - Duralgesic 1 patch q72 4) Insomnia - Continue Restoril - Seroquel 300 mg HS 5) Transaminitis - Abdominal US is unremarkable 6) DVT/GI prophylaxis - Lovenox 40 mg SC daily Case was reviewed and discussed with attending physician, Dr. Dao <Donn Dao S - Last Filed: 02/17/18 20:00> Objective - Vital Signs/Intake and Output Vital Signs (last 24 hours): Temp Pulse Resp BP Pulse Ox 98.2 F 81 20 119/72 96 02/17/18 08:38 02/17/18 08:38 02/17/18 08:38 02/17/18 08:38 02/17/18 08:38 - Medications Medications: Current Medications Buspirone HCl (Buspar) 15 mg PO TID [facility] Last Admin: 02/17/18 17:38 Dose: 15 mg Clonazepam (Klonopin) 0.5 mg PO BID MIMI; Protocol Last Admin: 02/17/18 17:39 Dose: 0.5 mg Docusate Sodium (Colace) 100 mg PO BID MIMI Last Admin: 02/17/18 17:41 Dose: Not Given Enoxaparin Sodium (Lovenox) 40 mg SC DAILY [facility]IMI; Protocol Last Admin: 02/17/18 10:28 Dose: 40 mg Fentanyl (Duragesic) 1 patch TD Q72 [facility]IMI Last Admin: 02/16/18 09:18 Dose: 1 patch Hydromorphone HCl (Dilaudid) 2 mg PO Q4 PRN PRN Reason: Pain, severe (8-10) Last Admin: 02/17/18 19:34 Dose: 2 mg Meropenem (Merrem Iv 1 Gm Premix) 1 gm in 50 mls @ 100 mls/hr IVPB Q8 [facility]IMI; Protocol Stop: 02/25/18 14:32 Last Admin: 02/17/18 13:55 Dose: 100 mls/hr Vancomycin HCl (Vancomycin 1gm) 1 gm in 250 mls @ 167 mls/hr IVPB Q12H [facility]IMI; Protocol Last Admin: 02/17/18 13:55 Dose: 167 mls/hr Mirtazapine (Remeron) 30 mg PO HS [facility] Last Admin: 02/16/18 22:57 Dose: 30 mg Non-Formulary Medication (Temazepam [Restoril]) 15 mg PO HS [facility] Paroxetine HCl (Paxil) 40 mg PO DAILY [facility] Last Admin: 02/17/18 10:29 Dose: 40 mg Pregabalin (Lyrica) 50 mg PO BID [facility] Last Admin: 02/17/18 17:39 Dose: 50 mg Quetiapine Fumarate (Seroquel Xr) 300 mg PO HS [facility]; Protocol Last Admin: 02/16/18 22:58 Dose: 300 mg - Labs Labs: 02/17/18 06:45 02/17/18 06:45 Assessment and Plan - Assessment and Plan (Free Text) Assessment: Pt seen and examined. I have reviewed the note of the medical biller and agree with it. I have discussed the assessment and plan with the resident. I have reviewed the patient's labs and medications. Spoke to Dr Tom Low. She is scheduled for bx of L3/L4 and L4/L5 discitis. She says her pain is controlled. She is on Restoril for her Insomnia. She is on Paroxetine for her Anxisty. She is on a Duragesic patch for her pain. Neuro and Neurosurgery is following pt.
--- NOTE | 2018-02-17 10:02 | CT ---
Date of service: 02/16/2018 PROCEDURE: CT Abdomen and Pelvis with contrast HISTORY: diskitis r/o source of infection COMPARISON: None. TECHNIQUE: Contrast dose: Radiation dose: Total exam DLP = 289.93 mGy-cm. This CT exam was performed using one or more of the following dose reduction techniques: Automated exposure control, adjustment of the mA and/or kV according to patient size, and/or use of iterative reconstruction technique. FINDINGS: LOWER THORAX: Unremarkable. LIVER: Unremarkable. No gross lesion or ductal dilatation. GALLBLADDER AND BILE DUCTS: Gallbladder removed PANCREAS: Unremarkable. No gross lesion or ductal dilatation. SPLEEN: Unremarkable. ADRENALS: Unremarkable. No mass. KIDNEYS AND URETERS: Unremarkable. No hydronephrosis. No solid mass. VASCULATURE: Unremarkable. No aortic aneurysm. No aortic atherosclerotic calcification or mural plaque present. BOWEL: Unremarkable. No obstruction. No gross mural thickening. APPENDIX: Normal appendix. PERITONEUM: Unremarkable. No free fluid. No free air. LYMPH NODES: Unremarkable. No enlarged lymph nodes. BLADDER: Unremarkable. REPRODUCTIVE: Unremarkable. BONES: Disc degeneration L2-3 and L3-4 OTHER FINDINGS: None. IMPRESSION: No acute intra-abdominal findings. No source of infection identified
[2018-02-17] MEDS: Enoxaparin 40 mg Syringe SC SCH (10:28)
[2018-02-17] MEDS ORDERED: Dexamethasone 4 mg/1 ml IVP ONE (12:00)
[2018-02-17 12:07] LABS: HEPATITIS B SURFACE AG Negative (NEGATIVE)
[2018-02-17 12:13] LABS: HEPATITIS A IGM NEGATIVE (NEGATIVE); HEPATITIS B CORE AB NEGATIVE (NEGATIVE)
[2018-02-17 12:25] LABS: HEPATITIS C ANTIBODY NEGATIVE (NEGATIVE)
--- NOTE | 2018-02-17 15:29 | MRI ---
Date of service: 02/17/2018 PROCEDURE: MR THORACIC SPINE WITHOUT CONTRAST HISTORY: L3/L4 diskitis, r/o diskitis in other vertebrae COMPARISON: None available. TECHNIQUE: Multiecho multiplanar sequences were performed through the thoracic spine without the use of intravenous contrast. FINDINGS: ALIGNMENT: Normal thoracic spinal alignment. Normal thoracic kyphosis. VERTEBRA: Vertebral body height are preserved. MARROW: Marrow signal unremarkable. PARASPINAL SOFT TISSUES: Unremarkable. CORD: Unremarkable thoracic cord. No volume loss, signal abnormality or syrinx. DISCS: No disc herniation, spinal canal stenosis, or neuroforaminal narrowing. OTHER FINDINGS: None. IMPRESSION: Unremarkable non-contrast enhanced MRI of the thoracic spine No evidence of discitis in the thoracic spine
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
--- NOTE | 2018-02-17 17:55 | CON ---
DATE: 02/17/2018 CHIEF COMPLAINT: Low back pain and left leg weakness. HISTORY OF PRESENTING ILLNESS: This is a 57-year-old woman with a history of sciatica in the past, history of anxiety and affective disorder, on psychiatric medications and had mechanical falls, ambulating with the left leg and low back pain radiating down the left buttocks down to the leg with paresthesias, underwent an MRI of the lumbosacral spine, found to have L3-L4 diskitis/osteomyelitis without any definitive epidural abscess appreciated, superimposed only mild degenerative disease and central stenosis of L3-L4 with bilateral neural foraminal stenosis greater on the right than the left. The patient was seen by Neurosurgery, who recommended to continue antibiotic therapy for underlying diskitis/osteomyelitis in L3-L4 level and no surgical intervention at this time. I gave her one dose of IV dexamethasone 4 mg to improve the pain and help to lift the left leg. She has normal tone in both legs and is able to lift left leg slightly above 15 degrees, but it is difficult due to low back pain. I placed her on Lyrica 50 mg p.o. b.i.d. for neuropathic relief and is undergoing antibiotic treatment by ID for underlying diskitis. MRI of the thoracic spine showed no evidence of any structural abnormalities or diskitis. FAMILY HISTORY: Noncontributory. PAST MEDICAL HISTORY: As above. ALLERGIES: NO KNOWN DRUG ALLERGIES. REVIEW OF SYSTEMS: Fourteen-point review of systems is negative except as per the HPI. SOCIAL HISTORY: No illicit drug use, smoking, or EtOH abuse. LABORATORY DATA: Sodium is 136, potassium 3.8, chloride 98, carbon dioxide 35, BUN of 19, creatinine 0.9. Random glucose 93. PHYSICAL EXAMINATION: GENERAL: The patient is sitting up in bed, in no acute distress. VITAL SIGNS: Temperature 98.2, pulse rate 81, blood pressure 119/80, respiratory rate 20, oxygen saturation 96% on room air. HEENT: Atraumatic, normocephalic. PERRLA. Extraocular muscles intact. NECK: Supple. No JVD. No adenopathy noted. LUNGS: Clear to auscultation. No adventitious sounds. HEART: S1 and S2. Normal rate and rhythm. No murmurs, rubs, or gallops. ABDOMEN: Soft, nontender, and nondistended. Bowel sounds are present. EXTREMITIES: No clubbing. No cyanosis. Peripheral pulses 2+ felt bilaterally. NEUROLOGICAL: The patient is alert and oriented to person, place, month, and year. Speech is fluent without any errors. Cranial nerves II through XII intact. Motor: Moves all extremities equally except for mild left lower extremity weakness due to pain and lifting left leg above 15 degrees. The tone is normal in left leg. Sensory: On light touch and pinprick up to the calves bilaterally. DTRs are 2+ and toes are downgoing bilaterally. Coordination: [id number] intact. No dysmetria noted except some paraspinal tenderness seen in the lumbosacral area. ASSESSMENT AND PLAN: This is a 57-year-old woman with a history of effective disorder on psychiatric meds, anxiety, sciatica, history of falls, who presented with ambulating with the left leg and low lumbosacral pain, found to have L3-L4 diskitis/osteomyelitis without any epidural abscess and currently on antibiotics and no neurosurgical intervention needed at this time due to no evidence of any epidural abscess and recommended conservative management in regards to antibiotic therapy, which I agree with. MRI of the thoracic spine showed no acute intracranial abnormalities. She is on hydromorphone and Duragesic patch for chronic nerve pain in addition on for insomnia. At this time, we will recommend: 1. Continue Infectious Disease recommendations with antibiotics in regards to L3-L4 diskitis. 2. We will give her one dose of intravenous dexamethasone 4 mg for pain as well as to help with the left leg weakness. 3. Lyrica 50 mg p.o. b.i.d. for neuropathic relief. 4. Continue antibiotic therapy and recommend acute rehab. Thank you for this consult. Osiel Goldstein MD
--- NOTE | 2018-02-17 17:56 | PN ---
DATE: 02/17/2018 SUBJECTIVE: The patient is in bed, in no acute distress. PHYSICAL EXAMINATION: VITAL SIGNS: Temperature is 98, blood pressure is 119/70, respiratory rate of 20. HEENT: Unremarkable. NECK: Supple. LUNGS: Have decreased breath sounds. HEART: Normal S1, S2. ABDOMEN: Soft, nontender. LABORATORY EXAMINATION: Reveals the patient have a white count of 13,000, hemoglobin of 12. Chemistries reveals the BUN of 19, creatinine of 0.9. C-reactive 224. HIV is pending. Microbiology reveals the urine culture is a Gram-positive cocci and the blood culture is negative. Review of orders reveals the patient to be on vancomycin and meropenem. The patient also was started on dexamethasone by Dr. Osiel Goldstein. The patient had a CAT scan of the abdomen and pelvis. ASSESSMENT AND PLAN: This is a 57-year-old female seen earlier this morning 567, bed 1 and who was admitted with sepsis with vertebral osteomyelitis and discitis, I have also spoke to Dr. Sergo Morales, person covering for Dr. Tom Low. He says that he does not feel the patient will benefit from a CAT scan guided aspirate. I will reach out to Dr. Tom Low when he returns and obtain his opinion. Dr. Osiel Goldstein's opinion is appreciated. Neurosurgical opinion still pending. We will continue with the antibiotics. Of note, the patient does have 3/5 motor function in the left leg, which is not progressed any further at this point. Jose Alfredo White MD
[2018-02-17] MEDS: QUEtiapine 300 mg XR Tab PO SCH (20:59)
[2018-02-17] MEDS: TEMAZEPAM 15 MG PO SCH (21:59)
[2018-02-18] MEDS: Vancomycin 1gm in NS 250ml 1 GM/250 ML BAG IVPB SCH ×2 (03:59→17:09)
[2018-02-18] MEDS: Meropenem IV 1 gm in NS 1 GM/50 ML BAG IVPB SCH ×3 (05:20→21:41)
[2018-02-18 07:22] LABS: BASO # 0.01 K/mm3 (0.0-2.0); BASO % 0.1 % (0.0-3.0); EOS % 0.2 % (1.5-5.0); GRAN # 12.81 (1.4-6.5); GRAN % 74.6 % (50.0-68.0); HEMOGLOBIN 11.8 g/dL (12.0-16.0); LYMPH # 2.6 (1.2-3.4); LYMPH % 15.2 % (22.0-35.0); MEAN CELL VOLUME 91.2 fl (80.0-105.0); MEAN CORPUSCULAR HEMOGLOBIN 29.8 pg (25.0-35.0); MEAN CORPUSCULAR HGB CONC 32.7 g/dl (31.0-37.0); MEAN PLATELET VOLUME 8.7 fl (7.0-11.0); MONO # 1.7 (0.1-0.6); MONO % 9.9 % (1.0-6.0); RBC 3.96 10^6/uL (3.5-6.1); RED CELL DISTRIBUTION WIDTH 14.5 % (11.5-14.5); WHITE BLOOD COUNT 17.2 10^3/uL (4.5-11.0)
[2018-02-18 07:52] LABS: ALB/GLOB RATIO 0.9 (1.1-1.8); ALBUMIN 2.8 g/dL (3.0-4.8); ALT/SGPT 59 U/L (7-56); AST/SGOT 87 U/L (14-36); BLOOD UREA NITROGEN 14 mg/dL (7-21); CALCIUM 8.1 mg/dL (8.4-10.5); GFR NON-AFRICAN AMERICAN > 60
[2018-02-18] MEDS: Enoxaparin 40 mg Syringe SC SCH (09:15)
[2018-02-18] MEDS ORDERED: Potassium Chloride 40 mEq/30 ml LIQ UD PO STA (11:59)
--- NOTE | 2018-02-18 15:13 | PN ---
DATE: 02/18/2018 SUBJECTIVE: The patient is in bed, in no acute distress, nontoxic. PHYSICAL EXAMINATION: VITAL SIGNS: Temperature is 98, blood pressure is 120/70 and respiratory rate of 18. HEENT: Unremarkable. NECK: Supple. LUNGS: Have decreased breath sounds. HEART: Normal S1 and S2. ABDOMEN: Soft. EXTREMITIES: Examination of the left leg remains 3/5. LABORATORY EXAMINATION: Reveals a white count of 17,200 and hemoglobin of 11. Chemistries are noted. Urinalysis is reviewed. Toxicology is noted. HIV is negative. RPR is negative. Hepatitis profile is negative. Microbiology reveals Staph aureus in the urine, sensitive Staph aureus. The blood cultures are reported to be no growth at 48 hours. MRI of the thorax is noted, Dr. Osiel Goldstein's consultation is appreciated. Neurosurgical note is reviewed. Neurosurgery does not recommend neurosurgical intervention. I spoke to Dr. Sergo Morales from [facility] covering for Dr. Tom Low, he does not feel it is necessary to do a biopsy or an aspiration of the disk. ASSESSMENT AND PLAN: A 57-year-old female admitted with sepsis with vertebral osteomyelitis and diskitis. We do not have a culture diagnosis and we will continue the antibiotics. We will also reach out to Dr. Tom Low for his opinion upon return regarding invasive radiology intervention for bacteriological diagnosis, on vancomycin and meropenem. Jose Alfredo White MD
--- NOTE | 2018-02-18 17:37 | PN ---
DATE: SUBJECTIVE: The patient is a 57-year-old seen and examined, lying in bed, seems to be comfortable, complaining of pain in the lower back, otherwise doing well. PHYSICAL EXAMINATION VITAL SIGNS: She is afebrile. Pulse 81, respirations 20, and blood pressure 120/83. LUNGS: Bilateral fair airflow. No rhonchi or crackle. HEART: S1 and S2, audible. ABDOMEN: Soft and nontender. No rebound. No guarding. NEUROLOGIC: The patient is awake, alert, and oriented. Able to communicate. Able to move all extremities. Has difficulty walking because of pain. LABORATORY DATA: WBC 15.2, hemoglobin 11.8, hematocrit 36.1, and platelets 391. Sodium 138, potassium 3.1, chloride 101, and CO2 of 33. BUN 14 and creatinine 0.8. Blood sugar of 94. LFTs are slightly elevated. Urine positive for Staphylococcus aureus. ASSESSMENT: 1. Lumbosacral radiculopathy. 2. Thoracic spine is unremarkable. 3. Degenerative disc disease. 4. She has L3-L4 neural foraminal stenosis, greater in the right than the left. 5. Mid-to-low back pain, rule out discitis. 6. Anxiety disorder. 7. Leukocytosis probably secondary to steroid. 8. Hypokalemia. PLAN: Supplement potassium. Continue on current analgesic and she is scheduled to go for biopsy on Tuesday. Currently, she is on meropenem. Follow up this patient in a.m. Nasra Sevilla MD
[2018-02-18] MEDS: QUEtiapine 300 mg XR Tab PO SCH (21:41)
[2018-02-18] MEDS: TEMAZEPAM 15 MG PO SCH (21:42)
[2018-02-19] MEDS: Meropenem IV 1 gm in NS 1 GM/50 ML BAG IVPB SCH ×3 (05:21→21:09)
[2018-02-19] MEDS: Vancomycin 1gm in NS 250ml 1 GM/250 ML BAG IVPB SCH ×2 (05:23→17:23)
[2018-02-19 07:51] LABS: BASO # 0.04 K/mm3 (0.0-2.0); BASO % 0.3 % (0.0-3.0); EOS # 0.2 (0.0-0.7); EOS % 1.5 % (1.5-5.0); GRAN # 8.78 (1.4-6.5); GRAN % 67.9 % (50.0-68.0); HEMOGLOBIN 11.9 g/dL (12.0-16.0); LYMPH # 2.8 (1.2-3.4); LYMPH % 21.6 % (22.0-35.0); MEAN CELL VOLUME 92.2 fl (80.0-105.0); MEAN CORPUSCULAR HGB CONC 32.5 g/dl (31.0-37.0); MEAN PLATELET VOLUME 8.8 fl (7.0-11.0); MONO # 1.1 (0.1-0.6); MONO % 8.7 % (1.0-6.0); RBC 3.97 10^6/uL (3.5-6.1); RED CELL DISTRIBUTION WIDTH 14.6 % (11.5-14.5); WHITE BLOOD COUNT 12.9 10^3/uL (4.5-11.0)
[2018-02-19 08:05] LABS: ALBUMIN 2.9 g/dL (3.0-4.8); ALT/SGPT 62 U/L (7-56); AST/SGOT 89 U/L (14-36); BLOOD UREA NITROGEN 11 mg/dL (7-21); CALCIUM 8.4 mg/dL (8.4-10.5); GFR NON-AFRICAN AMERICAN > 60
[2018-02-19] MEDS: Enoxaparin 40 mg Syringe SC SCH (10:46)
--- NOTE | 2018-02-19 16:27 | PN ---
DATE: 02/19/2018 SUBJECTIVE: The patient is in bed, in no acute distress. PHYSICAL EXAMINATION: VITAL SIGNS: Temperature is 97, blood pressure is 130/90, respiratory rate of 18. HEENT: Unremarkable. NECK: Supple. LUNGS: Decreased breath sounds. HEART: Normal S1, S2. ABDOMEN: Soft. LABORATORY EXAMINATION: Reveals a white count of 12,900, hemoglobin of 11. BUN of 11, creatinine of 0.8. Urinalysis is noted. Toxicology is reviewed. Serology is noted. Microbiology reveals the staph in the urine and the Staph aureus is sensitive Staph aureus, but the blood cultures are negative and Dr. Sevilla's note is reviewed and Dr. Goldstein's consultation is reviewed. ASSESSMENT AND PLAN: A 57-year-old female who was admitted with sepsis with vertebral osteomyelitis and diskitis. Thus far, waiting for Dr. Tom Low's opinion in the a.m. regarding invasive radiology Dr. Sergo Morales, the covering doctor for Dr. Tom Low was contacted initially and neurosurgery was also initially contacted. The patient also had a thoracic MRI of the spine, which was negative and the patient had a CT scan of the abdomen and pelvis, which was negative. We to vancomycin and meropenem empirically at this time. Pending Dr. Tom Low's input tomorrow. The patient is scheduled for IR-guided aspiration of the disk fluid. We will make further recommendations. Jose Alfredo White MD
--- NOTE | 2018-02-19 20:01 | PN ---
DATE: 02/19/2018 SUBJECTIVE: The patient is a 57-year-old, seen and examined, lying in bed. She states she is getting bored; although, she has pain and she is not free to ambulate and she is upset with . PHYSICAL EXAMINATION VITAL SIGNS: She is afebrile, pulse 80, respirations 18, and blood pressure 134/91. LUNGS: Bilateral fair airflow. No rhonchi or crackle. HEART: S1 and S2 audible. ABDOMEN: Soft and nontender. No rebound. No guarding. EXTREMITIES: Bilateral leg, no edema. NEUROLOGIC: She is awake, alert, and communicative. Able to move all extremities. LABORATORY DATA: WBC is 12.9, hemoglobin 11.9, hematocrit 36.6, and platelets 409. Chemistry: Sodium 138, potassium 3.8, chloride 105, and CO2 of 29. BUN 11 and creatinine 0.8. Blood sugar of 84. Urine tox positive for opiates and benzodiazepines. ASSESSMENT AND PLAN: 1. [id number] low back pain, possibility of diskitis. 2. Degenerative disk disease. 3. Spinal stenosis at L3-L4, right more than the left. 4. Leukocytosis. 5. Anxiety disorder. PLAN: The patient is planned to have biopsy done tomorrow by Dr. Tom Low and continue current pain management. Chest pain seems to be under control. Nasra Sevilla MD
[2018-02-19] MEDS: QUEtiapine 300 mg XR Tab PO SCH (21:09)
[2018-02-20] MEDS: Vancomycin 1gm in NS 250ml 1 GM/250 ML BAG IVPB SCH ×2 (05:06→18:19)
[2018-02-20] MEDS: Meropenem IV 1 gm in NS 1 GM/50 ML BAG IVPB SCH ×3 (05:06→21:52)
[2018-02-20 07:13] LABS: BASO # 0.03 K/mm3 (0.0-2.0); BASO % 0.2 % (0.0-3.0); EOS # 0.1 (0.0-0.7); GRAN # 10.7 (1.4-6.5); GRAN % 77.2 % (50.0-68.0); HEMOGLOBIN 11.6 g/dL (12.0-16.0); LYMPH # 2.1 (1.2-3.4); LYMPH % 15.2 % (22.0-35.0); MEAN CELL VOLUME 91.8 fl (80.0-105.0); MEAN CORPUSCULAR HEMOGLOBIN 29.8 pg (25.0-35.0); MEAN CORPUSCULAR HGB CONC 32.5 g/dl (31.0-37.0); MEAN PLATELET VOLUME 8.8 fl (7.0-11.0); MONO # 0.9 (0.1-0.6); MONO % 6.4 % (1.0-6.0); RBC 3.89 10^6/uL (3.5-6.1); RED CELL DISTRIBUTION WIDTH 14.7 % (11.5-14.5); WHITE BLOOD COUNT 13.9 10^3/uL (4.5-11.0)
[2018-02-20 07:33] LABS: ALBUMIN 2.8 g/dL (3.0-4.8); ALT/SGPT 57 U/L (7-56); AST/SGOT 63 U/L (14-36); BLOOD UREA NITROGEN 10 mg/dL (7-21); CALCIUM 8.1 mg/dL (8.4-10.5); GFR NON-AFRICAN AMERICAN > 60
[2018-02-20] MEDS ORDERED: Midazolam 2 MG/2 ML VIAL ONE (09:47)
[2018-02-20] MEDS ORDERED: Lidocaine 1% Inj (20ml) ONE (09:48)
--- NOTE | 2018-02-20 10:36 | CP.PCM.PN ---
<Rodolfo Mccarthy - Last Filed: 02/20/18 10:45> Subjective - Date & Time of Evaluation Date of Evaluation: 02/20/18 Time of Evaluation: 07:30 - Subjective Subjective: Rodolfo Mccarthy DO, PGY-2: Progress Note for Dr. Dao Patient was seen and examined at bedside. Patient reports that her pain is controlled and that she slept well last night. Patient denies any new motor or senseory deficits. Objective - Vital Signs/Intake and Output Vital Signs (last 24 hours): Temp Pulse Resp BP Pulse Ox 98.6 F 87 20 124/82 98 02/20/18 06:00 02/20/18 06:00 02/20/18 06:00 02/20/18 06:00 02/20/18 06:00 Intake and Output: 02/20/18 02/20/18 06:59 18:59 Intake Total 200 Balance 200 - Medications Medications: Current Medications Buspirone HCl (Buspar) 15 mg PO TID ANTOINETTE Last Admin: 02/19/18 17:30 Dose: 15 mg Clonazepam (Klonopin) 0.5 mg PO BID ANTOINETTE; Protocol Last Admin: 02/19/18 17:23 Dose: 0.5 mg Docusate Sodium (Colace) 100 mg PO BID ANTOINETTE Last Admin: 02/19/18 17:24 Dose: Not Given Enoxaparin Sodium (Lovenox) 40 mg SC DAILY ANTOINETTE; Protocol Last Admin: 02/19/18 10:46 Dose: 40 mg Fentanyl (Duragesic) 1 patch TD Q72 ANTOINETTE Last Admin: 02/19/18 10:50 Dose: 1 patch Hydromorphone HCl (Dilaudid) 2 mg PO Q4 PRN PRN Reason: Pain, severe (8-10) Last Admin: 02/20/18 05:05 Dose: 2 mg Meropenem (Merrem Iv 1 Gm Premix) 1 gm in 50 mls @ 100 mls/hr IVPB Q8 ANTOINETTE; Protocol Stop: 02/25/18 14:32 Last Admin: 02/20/18 05:06 Dose: 100 mls/hr Vancomycin HCl (Vancomycin 1gm) 1 gm in 250 mls @ 167 mls/hr IVPB Q12H ANTOINETTE; Protocol Last Admin: 02/20/18 05:06 Dose: 167 mls/hr Mirtazapine (Remeron) 30 mg PO HS [facility] Last Admin: 02/19/18 21:09 Dose: 30 mg Non-Formulary Medication (Temazepam [Restoril]) 15 mg PO HS [facility] Last Admin: 02/18/18 21:42 Dose: Not Given Paroxetine HCl (Paxil) 40 mg PO DAILY [facility] Last Admin: 02/19/18 10:49 Dose: 40 mg Pregabalin (Lyrica) 50 mg PO BID [facility] Last Admin: 02/19/18 17:30 Dose: 50 mg Quetiapine Fumarate (Seroquel Xr) 300 mg PO HS [facility]; Protocol Last Admin: 02/19/18 21:09 Dose: 300 mg - Labs Labs: 02/20/18 06:30 02/20/18 06:30 - Constitutional Appears: Non-toxic - Head Exam Head Exam: ATRAUMATIC, NORMOCEPHALIC - Eye Exam Eye Exam: EOMI, Normal appearance - ENT Exam ENT Exam: Mucous Membranes Moist - Neck Exam Neck Exam: Normal Inspection - Respiratory Exam Respiratory Exam: Clear to Ausculation Bilateral, NORMAL BREATHING PATTERN. absent: Accessory Muscle Use - Cardiovascular Exam Cardiovascular Exam: RRR, +S1, +S2 - GI/Abdominal Exam GI & Abdominal Exam: Soft, Normal Bowel Sounds - Extremities Exam Extremities Exam: Normal Inspection. absent: Calf Tenderness - Neurological Exam Neurological Exam: Awake, Oriented x3 Additional comments: patient has inability to maintain left hip flexion - Psychiatric Exam Psychiatric exam: Flat Affect - Skin Skin Exam: Dry, Intact, Normal Color, Warm Assessment and Plan - Assessment and Plan (Free Text) Assessment: 57 year old female with a past medical history of sciatica, affective disorder, and falls who presents with inability to move left leg and MRI of lumbar spine shows findings suspicious for diskitis osteomyelitis. Neurosurgery, neurology, interventional radiology and ID are following. Today, patient is scheduled for biopsy of the L3-L4 vertebral space to be performed by Interventional Radiology to ascertain pathogen. Plan: 1) Left leg weakness: Diskitis Osteomyelitis - Biopsy of the L3-L4 vertebral space to be performed by Interventional Rad iology to ascertain pathogen. - MRI of lumbar spine shows findings most compatible with L3-L4 discitis osteomyelitis without definitive epidural abscess appreciated at this time. Prevertebral fluid fluid is minimal and there is no loss of L3 or L4 vertebral body heights though endplates are questionably disrupted anteriorly. Limited fluid is seen in the intervertebral disc space. - ESR is 51 CRP is 225 - ID is following - Blood cultures negative x2 - Urine cultures growing staph aureus - CT abdomen and pelvis shows bibasilar scarring versus atelectasis, right he patic lobe cyst or hemangioma, and cholecystecomy. - Neurosurgery recommends no intervention at this time - Neurology consulted, Dr. Goldstein 2) UTI - Urine culture growing S. aureus - Continue with Meropenem 3) Anxiety disorder - Clonazepam 0.5 mg BID - Paroxetine 40 mg PO HS 4) Chronic nerve pain - Hydromorphone 2 mg q4h PO - Duralgesic 1 patch q72 5) Insomnia - Continue Restoril - Seroquel 300 mg HS 6) Transaminitis - Abdominal US is unremarkable 7) DVT/GI prophylaxis - Lovenox 40 mg SC daily Case was reviewed and discussed with attending physician, Dr. Dao <Donn Dao - Last Filed: 02/20/18 19:40> Objective - Vital Signs/Intake and Output Vital Signs (last 24 hours): Temp Pulse Resp BP Pulse Ox 99.3 F 91 H 20 126/78 93 L 02/20/18 14:00 02/20/18 14:00 02/20/18 14:00 02/20/18 14:00 02/20/18 14:00 Intake and Output: 02/20/18 02/21/18 18:59 06:59 Intake Total 235 Balance 235 - Medications Medications: Current Medications Acetaminophen (Tylenol 325mg Tab) 650 mg PO Q4 PRN PRN Reason: Pain, Mild (1-3) Buspirone HCl (Buspar) 15 mg PO TID [facility] Last Admin: 02/20/18 18:18 Dose: 15 mg Clonazepam (Klonopin) 0.5 mg PO BID [facility]; Protocol Last Admin: 02/20/18 18:19 Dose: 0.5 mg Docusate Sodium (Colace) 100 mg PO BID [facility] Last Admin: 02/20/18 17:40 Dose: Not Given Enoxaparin Sodium (Lovenox) 40 mg SC DAILY [facility]; Protocol Last Admin: 02/20/18 13:16 Dose: Not Given Fentanyl (Duragesic) 1 patch TD Q72 [facility] Last Admin: 02/19/18 10:50 Dose: 1 patch Hydromorphone HCl (Dilaudid) 2 mg PO Q4 PRN PRN Reason: Pain, severe (8-10) Last Admin: 02/20/18 13:14 Dose: 2 mg Meropenem (Merrem Iv 1 Gm Premix) 1 gm in 50 mls @ 100 mls/hr IVPB Q8 ANTOINETTE; Protocol Stop: 02/25/18 14:32 Last Admin: 02/20/18 13:16 Dose: 100 mls/hr Vancomycin HCl (Vancomycin 1gm) 1 gm in 250 mls @ 167 mls/hr IVPB Q12H ANTOINETTE; Protocol Last Admin: 02/20/18 18:19 Dose: 167 mls/hr Mirtazapine (Remeron) 30 mg PO HS ANTOINETTE Last Admin: 02/19/18 21:09 Dose: 30 mg Non-Formulary Medication (Temazepam [Restoril]) 15 mg PO HS ANTOINETTE Last Admin: 02/18/18 21:42 Dose: Not Given Ondansetron HCl (Zofran Inj) 4 mg IVP Q6H PRN PRN Reason: Nausea/Vomiting Paroxetine HCl (Paxil) 40 mg PO DAILY [facility] Last Admin: 02/20/18 13:10 Dose: 40 mg Pregabalin (Lyrica) 50 mg PO BID ANTOINETTE Last Admin: 02/20/18 18:19 Dose: 50 mg Quetiapine Fumarate (Seroquel Xr) 300 mg PO HS AN[facility]INETTE; Protocol Last Admin: 02/19/18 21:09 Dose: 300 mg - Labs Labs: 02/20/18 06:30 02/20/18 06:30 Assessment and Plan - Assessment and Plan (Free Text) Assessment: Pt seen and examined. I have reviewed the note of the medical assembly and agree with it. I have discussed the assessment and plan with the resident. I have reviewed the patient's labs and medications. Pt with discitis and is going for bx. I did speak to Dr Low. Pain is controlled with Duragesic patch and Hydromorphine. She is on IV Abx and is being followed by ID.
[2018-02-20] MEDS ORDERED: Midazolam 2 MG/2 ML VIAL IVP ONE (11:03)
[2018-02-20] MEDS: Enoxaparin 40 mg Syringe SC SCH (13:16)
--- NOTE | 2018-02-20 19:39 | CT ---
PROCEDURE: CT guided L3-4 disc space aspiration HISTORY: Discitis/osteomyelitis. Needs biopsy/aspiration. PHYSICIAN(S): Tom Low MD. TECHNIQUE: The relative risks and indications of the procedure were explained to the patient and consent obtained. The patient was placed prone on the CT scanner and preliminary images through the L3-4 disc space obtained. Conscious sedation and monitoring were provided throughout the procedure by a nurse. A right paraspinal approach was selected and the area prepped and draped in the usual sterile fashion. 1% Xylocaine was used to anesthetize the skin and soft tissues. A 19 gauge thin-walled needle was advanced into the L3-4 disc space and its position confirmed with aspiration did not obtain any fluid. 2 cc of saline was injected into the disc space an aspirated. The specimen was sent to microbiology IMPRESSION: 1. CT-guided L3-4 disc space biopsy and aspiration as described above
[2018-02-20] MEDS: QUEtiapine 300 mg XR Tab PO SCH (21:53)
[2018-02-20] MEDS: Sodium Chloride 0.45% 1,000 ML IV SCH (21:54)
[2018-02-21] MEDS: TEMAZEPAM 15 MG PO SCH (00:38)
[2018-02-21] MEDS: Meropenem IV 1 gm in NS 1 GM/50 ML BAG IVPB SCH ×3 (06:12→21:44)
[2018-02-21] MEDS: Vancomycin 1gm in NS 250ml 1 GM/250 ML BAG IVPB SCH ×2 (06:12→17:25)
[2018-02-21 07:10] LABS: BASO # 0.03 K/mm3 (0.0-2.0); BASO % 0.2 % (0.0-3.0); EOS # 0.2 (0.0-0.7); EOS % 1.3 % (1.5-5.0); GRAN # 10.81 (1.4-6.5); GRAN % 76.7 % (50.0-68.0); HEMOGLOBIN 11.6 g/dL (12.0-16.0); LYMPH % 13.9 % (22.0-35.0); MEAN CELL VOLUME 91.1 fl (80.0-105.0); MEAN CORPUSCULAR HEMOGLOBIN 30.4 pg (25.0-35.0); MEAN CORPUSCULAR HGB CONC 33.4 g/dl (31.0-37.0); MONO # 1.1 (0.1-0.6); MONO % 7.9 % (1.0-6.0); RBC 3.81 10^6/uL (3.5-6.1); RED CELL DISTRIBUTION WIDTH 14.7 % (11.5-14.5); WHITE BLOOD COUNT 14.1 10^3/uL (4.5-11.0)
[2018-02-21 07:18] LABS: ALB/GLOB RATIO 0.9 (1.1-1.8); ALBUMIN 2.8 g/dL (3.0-4.8); ALT/SGPT 53 U/L (7-56); AST/SGOT 51 U/L (14-36); BLOOD UREA NITROGEN 15 mg/dL (7-21); CALCIUM 8.2 mg/dL (8.4-10.5); GFR NON-AFRICAN AMERICAN > 60
--- NOTE | 2018-02-21 07:41 | CP.PCM.PN ---
<Mery Landaverde - Last Filed: 02/21/18 12:13> Subjective - Date & Time of Evaluation Date of Evaluation: 02/21/18 Time of Evaluation: 07:00 - Subjective Subjective: Infectious Disease Progress Note for Tom Burgos PGY3 Patient seen and examined at bedside. There were no acute overnight events as per nursing staff. Patient had fever of 100.9 after IR procedure yesterday. This AM she is afebrile without any complaints. Objective - Vital Signs/Intake and Output Vital Signs (last 24 hours): Temp Pulse Resp BP Pulse Ox 100.9 F H 105 H 20 124/80 92 L 02/20/18 22:27 02/20/18 22:27 02/20/18 22:27 02/20/18 22:27 02/20/18 22:27 - Medications Medications: Current Medications Acetaminophen (Tylenol 325mg Tab) 650 mg PO Q4 PRN PRN Reason: Pain, Mild (1-3) Buspirone HCl (Buspar) 15 mg PO TID ANTOINETTE Last Admin: 02/20/18 18:18 Dose: 15 mg Clonazepam (Klonopin) 0.5 mg PO BID ANTOINETTE; Protocol Last Admin: 02/20/18 18:19 Dose: 0.5 mg Docusate Sodium (Colace) 100 mg PO BID ANTOINETTE Last Admin: 02/20/18 17:40 Dose: Not Given Enoxaparin Sodium (Lovenox) 40 mg SC DAILY ANTOINETTE; Protocol Last Admin: 02/20/18 13:16 Dose: Not Given Fentanyl (Duragesic) 1 patch TD Q72 ANTOINETTE Last Admin: 02/19/18 10:50 Dose: 1 patch Hydromorphone HCl (Dilaudid) 2 mg PO Q4 PRN PRN Reason: Pain, severe (8-10) Last Admin: 02/21/18 06:15 Dose: 2 mg Meropenem (Merrem Iv 1 Gm Premix) 1 gm in 50 mls @ 100 mls/hr IVPB Q8 ANTOINETTE; Protocol Stop: 02/25/18 14:32 Last Admin: 02/21/18 06:12 Dose: 100 mls/hr Vancomycin HCl (Vancomycin 1gm) 1 gm in 250 mls @ 167 mls/hr IVPB Q12H ANTOINETTE; Protocol Last Admin: 02/21/18 06:12 Dose: 167 mls/hr Mirtazapine (Remeron) 30 mg PO [facility] Last Admin: 02/20/18 21:53 Dose: 30 mg Non-Formulary Medication (Temazepam [Restoril]) 15 mg PO [facility] Last Admin: 02/21/18 00:38 Dose: Not Given Ondansetron HCl (Zofran Inj) 4 mg IVP Q6H PRN PRN Reason: Nausea/Vomiting Paroxetine HCl (Paxil) 40 mg PO DAILY [facility] Last Admin: 02/20/18 13:10 Dose: 40 mg Pregabalin (Lyrica) 50 mg PO BID [facility] Last Admin: 02/20/18 18:19 Dose: 50 mg Quetiapine Fumarate (Seroquel Xr) 300 mg PO [facility]; Protocol Last Admin: 02/20/18 21:53 Dose: 300 mg - Labs Labs: 02/21/18 06:30 02/21/18 06:30 - Constitutional Appears: No Acute Distress - Head Exam Head Exam: ATRAUMATIC, NORMAL INSPECTION, NORMOCEPHALIC - Eye Exam Eye Exam: Normal appearance, PERRL Pupil Exam: NORMAL ACCOMODATION, PERRL - ENT Exam ENT Exam: Mucous Membranes Moist - Respiratory Exam Respiratory Exam: Clear to Ausculation Bilateral, NORMAL BREATHING PATTERN. absent: Rales, Rhonchi, Wheezes - Cardiovascular Exam Cardiovascular Exam: REGULAR RHYTHM, +S1, +S2. absent: Gallop, Rubs, Murmur - GI/Abdominal Exam GI & Abdominal Exam: Soft, Normal Bowel Sounds. absent: Rigid, Tenderness, Mass, Rebound - Extremities Exam Extremities Exam: Normal Capillary Refill, Normal Inspection. absent: Calf Tenderness, Pedal Edema - Back Exam Additional comments: Dressing in place- clean and dry - Neurological Exam Neurological Exam: Alert, Awake, CN II-XII Intact, Oriented x3 Neuro motor strength exam: Left Lower Extremity: 3, Right Lower Extremity: 5 - Psychiatric Exam Psychiatric exam: Normal Affect, Normal Mood - Skin Skin Exam: Dry, Warm Assessment and Plan - Assessment and Plan (Free Text) Assessment: 1. 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 UTI - urine culture positive for staph aureus 3. Sciatica 4. Bipolar 5. Depression Plan: Labs and imaging reviewed. Patient is s/p IR guided tissue biopsy. Will monitor fever clinically. If patient continues to have fevers will repeat septic work up. Culture may be negative since patient has already received IV antibiotics. Will continue Merrem and Vancomycin day #6 . Patient may need prolonged course of antibiotics. Will await culture results. Case seen, discussed and reviewed with Dr. Vickie Landaverde PGY3 <Delvis Johnston - Last Filed: 02/21/18 16:35> Objective - Vital Signs/Intake and Output Vital Signs (last 24 hours): Temp Pulse Resp BP Pulse Ox 98.9 F 97 H 20 102/73 93 L 02/21/18 14:00 02/21/18 14:00 02/21/18 14:00 02/21/18 14:00 02/21/18 14:00 - Medications Medications: Current Medications Acetaminophen (Tylenol 325mg Tab) 650 mg PO Q4 PRN PRN Reason: Pain, Mild (1-3) Buspirone HCl (Buspar) 15 mg PO TID ANTOINETTE Last Admin: 02/21/18 13:36 Dose: 15 mg Clonazepam (Klonopin) 0.5 mg PO BID ANTOINETTE; Protocol Last Admin: 02/21/18 11:11 Dose: 0.5 mg Docusate Sodium (Colace) 100 mg PO BID ANTO[facility]ETTE Last Admin: 02/21/18 11:12 Dose: 100 mg Enoxaparin Sodium (Lovenox) 40 mg SC DAILY AN[facility]TE; Protocol Last Admin: 02/21/18 11:12 Dose: 40 mg Fentanyl (Duragesic) 1 patch TD Q72 ANTOINETTE Last Admin: 02/19/18 10:50 Dose: 1 patch Hydromorphone HCl (Dilaudid) 2 mg PO Q4 PRN PRN Reason: Pain, severe (8-10) Last Admin: 02/21/18 11:21 Dose: 2 mg Meropenem (Merrem Iv 1 Gm Premix) 1 gm in 50 mls @ 100 mls/hr IVPB Q8 ANTOINETTE; Protocol Stop: 02/25/18 14:32 Last Admin: 02/21/18 13:36 Dose: 100 mls/hr Vancomycin HCl (Vancomycin 1gm) 1 gm in 250 mls @ 167 mls/hr IVPB Q12H ANTO[facility]ETTE; Protocol Last Admin: 02/21/18 06:12 Dose: 167 mls/hr Mirtazapine (Remeron) 30 mg PO HS [facility] Last Admin: 02/20/18 21:53 Dose: 30 mg Non-Formulary Medication (Temazepam [Restoril]) 15 mg PO HS [facility] Last Admin: 02/21/18 00:38 Dose: Not Given Ondansetron HCl (Zofran Inj) 4 mg IVP Q6H PRN PRN Reason: Nausea/Vomiting Paroxetine HCl (Paxil) 40 mg PO DAILY [facility] Last Admin: 02/21/18 11:12 Dose: 40 mg Pregabalin (Lyrica) 50 mg PO BID [facility] Last Admin: 02/21/18 11:12 Dose: 50 mg Quetiapine Fumarate (Seroquel Xr) 300 mg PO HS [facility]; Protocol Last Admin: 02/20/18 21:53 Dose: 300 mg - Labs Labs: 02/21/18 06:30 02/21/18 06:30 Assessment and Plan - Assessment and Plan (Free Text) Plan: Infectious Diseases Attending Physician Attestation Patient seen and examined, discussed with neuropsychology medical consultant. I have reviewed the patient's history of present illness, past medical, family and social histories, personal history, physical exam, lab findings and imaging studies. I agree with the above findings, assessment and plan. In addition, will continue Merrem and Vancomycin for possible L4-L5 discitis / vertebral osteomyelitis. Patient had CT-guided biopsy yesterday and will follow up results. Will continue to monitor clinically. Patient will need at least 6 weeks of antibiotics, if not more.
[2018-02-21] MEDS: Enoxaparin 40 mg Syringe SC SCH (11:12)
--- NOTE | 2018-02-21 14:31 | CP.PCM.PN ---
<Rodolfo Mccarthy - Last Filed: 02/21/18 14:43> Subjective - Date & Time of Evaluation Date of Evaluation: 02/21/18 Time of Evaluation: 07:45 - Subjective Subjective: Rodolfo Mccarthy DO, PGY-2: Progress Note for Dr. Dao Patient was seen and examined at bedside. She reports no adverse events since the biopsy which she had yesterday in the morning. Chart review indicates patient had isolated an oral temperature of 100.9 yesterday. Otherwise, patient denied any chest pain, palpitations, nausea, vomiting, or diarrhea. Objective - Vital Signs/Intake and Output Vital Signs (last 24 hours): Temp Pulse Resp BP Pulse Ox 98.6 F 100 H 18 125/20 L 98 02/21/18 06:00 02/21/18 06:00 02/21/18 06:00 02/21/18 06:00 02/21/18 06:00 - Medications Medications: Current Medications Acetaminophen (Tylenol 325mg Tab) 650 mg PO Q4 PRN PRN Reason: Pain, Mild (1-3) Buspirone HCl (Buspar) 15 mg PO TID [facility] Last Admin: 02/21/18 13:36 Dose: 15 mg Clonazepam (Klonopin) 0.5 mg PO BID [facility]; Protocol Last Admin: 02/21/18 11:11 Dose: 0.5 mg Docusate Sodium (Colace) 100 mg PO BID [facility] Last Admin: 02/21/18 11:12 Dose: 100 mg Enoxaparin Sodium (Lovenox) 40 mg SC DAILY [facility]; Protocol Last Admin: 02/21/18 11:12 Dose: 40 mg Fentanyl (Duragesic) 1 patch TD Q72 [facility] Last Admin: 02/19/18 10:50 Dose: 1 patch Hydromorphone HCl (Dilaudid) 2 mg PO Q4 PRN PRN Reason: Pain, severe (8-10) Last Admin: 02/21/18 11:21 Dose: 2 mg Meropenem (Merrem Iv 1 Gm Premix) 1 gm in 50 mls @ 100 mls/hr IVPB Q8 [facility]; Pro tocol Stop: 02/25/18 14:32 Last Admin: 02/21/18 13:36 Dose: 100 mls/hr Vancomycin HCl (Vancomycin 1gm) 1 gm in 250 mls @ 167 mls/hr IVPB Q12H [facility]; Protocol Last Admin: 02/21/18 06:12 Dose: 167 mls/hr Mirtazapine (Remeron) 30 mg PO HS [facility] Last Admin: 02/20/18 21:53 Dose: 30 mg Non-Formulary Medication (Temazepam [Restoril]) 15 mg PO HS [facility] Last Admin: 02/21/18 00:38 Dose: Not Given Ondansetron HCl (Zofran Inj) 4 mg IVP Q6H PRN PRN Reason: Nausea/Vomiting Paroxetine HCl (Paxil) 40 mg PO DAILY [facility] Last Admin: 02/21/18 11:12 Dose: 40 mg Pregabalin (Lyrica) 50 mg PO BID [facility] Last Admin: 02/21/18 11:12 Dose: 50 mg Quetiapine Fumarate (Seroquel Xr) 300 mg PO HS [facility]; Protocol Last Admin: 02/20/18 21:53 Dose: 300 mg - Labs Labs: 02/21/18 06:30 02/21/18 06:30 - Constitutional Appears: Non-toxic, No Acute Distress - Head Exam Head Exam: ATRAUMATIC, NORMOCEPHALIC - Eye Exam Eye Exam: EOMI, Normal appearance - ENT Exam ENT Exam: Mucous Membranes Moist - Neck Exam Neck Exam: Normal Inspection - Respiratory Exam Respiratory Exam: Clear to Ausculation Bilateral, NORMAL BREATHING PATTERN. absent: Accessory Muscle Use - Cardiovascular Exam Cardiovascular Exam: RRR, +S1, +S2 - GI/Abdominal Exam GI & Abdominal Exam: Soft, Normal Bowel Sounds - Extremities Exam Extremities Exam: Normal Inspection. absent: Calf Tenderness - Neurological Exam Neurological Exam: Alert, Awake, Oriented x3 - Psychiatric Exam Psychiatric exam: Normal Affect, Normal Mood - Skin Skin Exam: Dry, Intact, Normal Color, Warm Assessment and Plan - Assessment and Plan (Free Text) Assessment: 57 year old female with a past medical history of sciatica, affective disorder, and falls who presents with inability to move left leg and MRI of lumbar spine shows findings suspicious for diskitis osteomyelitis. Neurosurgery, neurology, interventional radiology and ID are following. Today, patient is scheduled for biopsy of the L3-L4 vertebral space to be performed by Interventional Radiology to ascertain pathogen. Patient had a temperature of 100.9 last night. She is currently on Vancomycin and Merropenem. Plan: 1) Left leg weakness: Rule out Diskitis Osteomyelitis - Biopsy of the L3-L4 vertebral space to be performed by Interventional Radiology to ascertain pathogen; cultures and cytology sent - MRI of lumbar spine shows findings most compatible with L3-L4 discitis osteomyelitis without definitive epidural abscess appreciated at this time. Prevertebral fluid fluid is minimal and there is no loss of L3 or L4 vertebral body heights though endplates are questionably disrupted anteriorly. Limited fluid is seen in the intervertebral disc space. - ESR is 51 CRP is 225 - Blood cultures negative x2 - Urine cultures growing staph aureus - CT abdomen and pelvis shows bibasilar scarring versus atelectasis, right hepatic lobe cyst or hemangioma, and cholecystecomy. - Neurosurgery recommends no intervention at this time - Neurology consulted, Dr. Goldstein - Physical therapy ordered 2) UTI - Continue antibiotics per Infectious Disease 3) Anxiety disorder - Clonazepam 0.5 mg BID - Paroxetine 40 mg PO HS 4) Chronic nerve pain - Hydromorphone 2 mg q4h PO - Duralgesic 1 patch q72 5) Insomnia - Continue Restoril - Seroquel 300 mg HS 6) Transaminitis - Abdominal US is unremarkable 7) DVT/GI prophylaxis - Lovenox 40 mg SC daily Case was reviewed and discussed with attending physician, Dr. Dao <Donn Dao S - Last Filed: 02/21/18 15:38> Objective - Vital Signs/Intake and Output Vital Signs (last 24 hours): Temp Pulse Resp BP Pulse Ox 98.9 F 97 H 20 102/73 93 L 02/21/18 14:00 02/21/18 14:00 02/21/18 14:00 02/21/18 14:00 02/21/18 14:00 - Medications Medications: Current Medications Acetaminophen (Tylenol 325mg Tab) 650 mg PO Q4 PRN PRN Reason: Pain, Mild (1-3) Buspirone HCl (Buspar) 15 mg PO TID [facility] Last Admin: 02/21/18 13:36 Dose: 15 mg Clonazepam (Klonopin) 0.5 mg PO BID [facility]; Protocol Last Admin: 02/21/18 11:11 Dose: 0.5 mg Docusate Sodium (Colace) 100 mg PO BID [facility] Last Admin: 02/21/18 11:12 Dose: 100 mg Enoxaparin Sodium (Lovenox) 40 mg SC DAILY [facility]; Protocol Last Admin: 02/21/18 11:12 Dose: 40 mg Fentanyl (Duragesic) 1 patch TD Q72 [facility] Last Admin: 02/19/18 10:50 Dose: 1 patch Hydromorphone HCl (Dilaudid) 2 mg PO Q4 PRN PRN Reason: Pain, severe (8-10) Last Admin: 02/21/18 11:21 Dose: 2 mg Meropenem (Merrem Iv 1 Gm Premix) 1 gm in 50 mls @ 100 mls/hr IVPB Q8 [facility]; Protocol Stop: 02/25/18 14:32 Last Admin: 02/21/18 13:36 Dose: 100 mls/hr Vancomycin HCl (Vancomycin 1gm) 1 gm in 250 mls @ 167 mls/hr IVPB Q12H [facility]; Protocol Last Admin: 02/21/18 06:12 Dose: 167 mls/hr Mirtazapine (Remeron) 30 mg PO HS [facility] Last Admin: 02/20/18 21:53 Dose: 30 mg Non-Formulary Medication (Temazepam [Restoril]) 15 mg PO HS [facility] Last Admin: 02/21/18 00:38 Dose: Not Given Ondansetron HCl (Zofran Inj) 4 mg IVP Q6H PRN PRN Reason: Nausea/Vomiting Paroxetine HCl (Paxil) 40 mg PO DAILY [facility] Last Admin: 02/21/18 11:12 Dose: 40 mg Pregabalin (Lyrica) 50 mg PO BID [facility] Last Admin: 02/21/18 11:12 Dose: 50 mg Quetiapine Fumarate (Seroquel Xr) 300 mg PO HS [facility]; Protocol Last Admin: 02/20/18 21:53 Dose: 300 mg - Labs Labs: 02/21/18 06:30 02/21/18 06:30 Assessment and Plan - Assessment and Plan (Free Text) Assessment: Pt seen and examined. I have reviewed the note of the medical insurance coder and agree with it. I have discussed the assessment and plan with the resident. I have reviewed the patient's labs and medications. She has L leg weakness due to discitis. She had a bx done yesterday and results are pending. She is on Duragesic and Hydromorphone for pain. She is on Restoril for Insomnia. ID is following the pt. She is on Restoril for Insomnia. On DVT prophylaxis. Anxiety is controlled and is on Paroxetine and Clonazepam.
[2018-02-21] MEDS ORDERED: Influenza Vaccine 60 mcg/0.5 mL SYR (4YR UP) IM ONE (15:41)
[2018-02-21] MEDS: QUEtiapine 300 mg XR Tab PO SCH (21:45)
[2018-02-22] MEDS: Vancomycin 1gm in NS 250ml 1 GM/250 ML BAG IVPB SCH (05:11)
[2018-02-22] MEDS: Meropenem IV 1 gm in NS 1 GM/50 ML BAG IVPB SCH ×3 (05:12→21:20)
[2018-02-22] MEDS: Enoxaparin 40 mg Syringe SC SCH (09:09)
--- NOTE | 2018-02-22 09:11 | CP.PCM.PN ---
<Rodolfo Mccarthy - Last Filed: 02/22/18 09:16> Subjective - Date & Time of Evaluation Date of Evaluation: 02/22/18 Time of Evaluation: 07:45 - Subjective Subjective: Rodolfo Mccarthy DO, PGY-2: Progress Note for Dr. Dao Patient was seen and examined at bedside. She reports having no fevers overnight. She reports being evaluated by Physical Therapy yesterday. Otherwise, no adverse events noted overnight. Objective - Vital Signs/Intake and Output Vital Signs (last 24 hours): Temp Pulse Resp BP Pulse Ox 98 F 85 20 117/65 98 02/22/18 06:00 02/22/18 06:00 02/22/18 06:00 02/22/18 06:00 02/22/18 06:00 - Medications Medications: Current Medications Acetaminophen (Tylenol 325mg Tab) 650 mg PO Q4 PRN PRN Reason: Pain, Mild (1-3) Buspirone HCl (Buspar) 15 mg PO TID [facility] Last Admin: 02/21/18 17:25 Dose: 15 mg Clonazepam (Klonopin) 0.5 mg PO BID [facility]; Protocol Last Admin: 02/21/18 17:25 Dose: 0.5 mg Docusate Sodium (Colace) 100 mg PO BID [facility] Last Admin: 02/21/18 17:25 Dose: 100 mg Enoxaparin Sodium (Lovenox) 40 mg SC DAILY [facility]; Protocol Last Admin: 02/21/18 11:12 Dose: 40 mg Fentanyl (Duragesic) 1 patch TD Q72 [facility] Last Admin: 02/19/18 10:50 Dose: 1 patch Hydromorphone HCl (Dilaudid) 2 mg PO Q4 PRN PRN Reason: Pain, severe (8-10) Last Admin: 02/21/18 21:45 Dose: 2 mg Meropenem (Merrem Iv 1 Gm Premix) 1 gm in 50 mls @ 100 mls/hr IVPB Q8 [facility]; Protocol Stop: 02/25/18 14:32 Last Admin: 02/22/18 05:12 Dose: 100 mls/hr Vancomycin HCl (Vancomycin 1gm) 1 gm in 250 mls @ 167 mls/hr IVPB Q12H [facility]; Protocol Last Admin: 02/22/18 05:11 Dose: 167 mls/hr Mirtazapine (Remeron) 30 mg PO [facility] Last Admin: 02/21/18 21:45 Dose: 30 mg Non-Formulary Medication (Temazepam [Restoril]) 15 mg PO [facility] Last Admin: 02/21/18 00:38 Dose: Not Given Ondansetron HCl (Zofran Inj) 4 mg IVP Q6H PRN PRN Reason: Nausea/Vomiting Paroxetine HCl (Paxil) 40 mg PO DAILY [facility] Last Admin: 02/21/18 11:12 Dose: 40 mg Pregabalin (Lyrica) 50 mg PO BID [facility] Last Admin: 02/21/18 17:25 Dose: 50 mg Quetiapine Fumarate (Seroquel Xr) 300 mg PO [facility]; Protocol Last Admin: 02/21/18 21:45 Dose: 300 mg - Labs Labs: 02/21/18 06:30 02/21/18 06:30 - Constitutional Appears: Non-toxic, No Acute Distress - Head Exam Head Exam: ATRAUMATIC, NORMOCEPHALIC - Eye Exam Eye Exam: EOMI, Normal appearance - ENT Exam ENT Exam: Mucous Membranes Moist - Neck Exam Neck Exam: Normal Inspection - Respiratory Exam Respiratory Exam: Clear to Ausculation Bilateral, NORMAL BREATHING PATTERN. absent: Accessory Muscle Use - Cardiovascular Exam Cardiovascular Exam: RRR, +S1, +S2 - GI/Abdominal Exam GI & Abdominal Exam: Soft, Normal Bowel Sounds - Extremities Exam Extremities Exam: Normal Inspection. absent: Calf Tenderness Additional comments: hip extension, adduction, and abduction. - Back Exam Back Exam: absent: CVA tenderness (L), CVA tenderness (R) - Neurological Exam Neurological Exam: Alert, Awake, Oriented x3 - Psychiatric Exam Psychiatric exam: Normal Affect, Normal Mood - Skin Skin Exam: Dry, Intact, Normal Color, Warm Assessment and Plan - Assessment and Plan (Free Text) Assessment: 57 year old female with a past medical history of sciatica, affective disorder, and falls who presents with inability to move left leg and MRI of lumbar spine shows findings suspicious for diskitis osteomyelitis. Neurosurgery, neurology, interventional radiology and ID are following. Today, patient is scheduled for biopsy of the L3-L4 vertebral space to be performed by Interventional Radiology to ascertain pathogen.She is currently on Vancomycin and Merropenem and will need at the least 6 weeks of antibiotics per Infectious Recommendations. community arts worker and nurse were informed patient needs to be re-evaluated by physical therapy for acute rehabilitation given she cannot ambulate due to her leg issue. Plan: 1) Left leg weakness: Diskitis Osteomyelitis - Continue Vancomycin and Merropenem - Biopsy of the L3-L4 vertebral space to be performed by Interventional Radiology to ascertain pathogen; cultures and cytology negative thus far - MRI of lumbar spine shows findings most compatible with L3-L4 discitis osteomyelitis without definitive epidural abscess appreciated at this time. Prevertebral fluid fluid is minimal and there is no loss of L3 or L4 vertebral body heights though endplates are questionably disrupted anteriorly. Limited fluid is seen in the intervertebral disc space. - ESR is 51 CRP is 225 last week; will repeat tomorrow - Blood cultures negative x2 - Urine cultures growing staph aureus - CT abdomen and pelvis shows bibasilar scarring versus atelectasis, right hepatic lobe cyst or hemangioma, and cholecystecomy. - Neurosurgery recommends no intervention at this time - Neurology consulted, Dr. Goldstein - Physical therapy evaluation for acute rehabilitation relayed to nurse and director social as well as physical therapist 2) UTI - Continue antibiotics per Infectious Disease 3) Anxiety disorder - Clonazepam 0.5 mg BID - Paroxetine 40 mg PO HS 4) Chronic nerve pain - Hydromorphone 2 mg q4h PO PRN - Duralgesic 1 patch q72 5) Insomnia - Continue Restoril - Seroquel 300 mg HS 6) DVT/GI prophylaxis - Lovenox 40 mg SC daily Case was reviewed and discussed with attending physician, Dr. Dao <Donn Dao - Last Filed: 02/22/18 20:45> Objective - Vital Signs/Intake and Output Vital Signs (last 24 hours): Temp Pulse Resp BP Pulse Ox 98.2 F 86 18 116/75 93 L 02/22/18 14:00 02/22/18 14:00 02/22/18 14:00 02/22/18 14:00 02/22/18 14:00 - Medications Medications: Current Medications Acetaminophen (Tylenol 325mg Tab) 650 mg PO Q4 PRN PRN Reason: Pain, Mild (1-3) Buspirone HCl (Buspar) 15 mg PO TID [facility] Last Admin: 02/22/18 14:56 Dose: 15 mg Clonazepam (Klonopin) 0.5 mg PO BID [facility]; Protocol Last Admin: 02/22/18 17:40 Dose: 0.5 mg Docusate Sodium (Colace) 100 mg PO BID [facility] Last Admin: 02/22/18 17:39 Dose: 100 mg Enoxaparin Sodium (Lovenox) 40 mg SC DAILY [facility]; Protocol Last Admin: 02/22/18 09:09 Dose: 40 mg Fentanyl (Duragesic) 1 patch TD Q72 [facility] Last Admin: 02/22/18 09:07 Dose: 1 patch Hydromorphone HCl (Dilaudid) 2 mg PO Q4 PRN PRN Reason: Pain, severe (8-10) Last Admin: 02/22/18 17:08 Dose: 2 mg Meropenem (Merrem Iv 1 Gm Premix) 1 gm in 50 mls @ 100 mls/hr IVPB Q8 [facility]; Protocol Stop: 02/25/18 14:32 Last Admin: 02/22/18 14:57 Dose: 100 mls/hr Vancomycin HCl (Vancomycin 1gm) 1 gm in 250 mls @ 167 mls/hr IVPB Q12H [facility]; Protocol Last Admin: 02/22/18 05:11 Dose: 167 mls/hr Mirtazapine (Remeron) 30 mg PO HS [facility] Last Admin: 02/21/18 21:45 Dose: 30 mg Non-Formulary Medication (Temazepam [Restoril]) 15 mg PO HS [facility] Last Admin: 02/21/18 00:38 Dose: Not Given Ondansetron HCl (Zofran Inj) 4 mg IVP Q6H PRN PRN Reason: Nausea/Vomiting Paroxetine HCl (Paxil) 40 mg PO DAILY [facility] Last Admin: 02/22/18 09:11 Dose: 40 mg Pregabalin (Lyrica) 50 mg PO BID [facility] Last Admin: 02/22/18 17:39 Dose: 50 mg Quetiapine Fumarate (Seroquel Xr) 300 mg PO HS [facility]; Protocol Last Admin: 02/21/18 21:45 Dose: 300 mg - Labs Labs: 02/21/18 06:30 02/21/18 06:30 Assessment and Plan - Assessment and Plan (Free Text) Assessment: Pt seen and examined. I have reviewed the note of the medical assistant cardiology and agree with it. I have discussed the assessment and plan with the resident. I have reviewed the patient's labs and medications. Pt with discitis. She has L leg weakness. She is being seen by PT. She may need acute rehab. She has her pain is controlled with pain meds. Restoril for Insomnia. Culture done and negative to date.
--- NOTE | 2018-02-22 13:28 | CP.PCM.PN ---
<Mery Landaverde - Last Filed: 02/22/18 13:25> Subjective - Date & Time of Evaluation Date of Evaluation: 02/22/18 Time of Evaluation: 07:00 - Subjective Subjective: Infectious Disease Progress Note for Tom Burgos PGY3 Patient seen and examined at bedside. There were no acute overnight events as per nursing staff. Patient was afebrile overnight and is resting comfortably in bed. Objective - Vital Signs/Intake and Output Vital Signs (last 24 hours): Temp Pulse Resp BP Pulse Ox 98 F 85 20 117/65 98 02/22/18 06:00 02/22/18 06:00 02/22/18 06:00 02/22/18 06:00 02/22/18 06:00 - Medications Medications: Current Medications Acetaminophen (Tylenol 325mg Tab) 650 mg PO Q4 PRN PRN Reason: Pain, Mild (1-3) Buspirone HCl (Buspar) 15 mg PO TID [facility] Last Admin: 02/22/18 09:09 Dose: 15 mg Clonazepam (Klonopin) 0.5 mg PO BID [facility]; Protocol Last Admin: 02/22/18 09:09 Dose: 0.5 mg Docusate Sodium (Colace) 100 mg PO BID [facility] Last Admin: 02/22/18 09:11 Dose: 100 mg Enoxaparin Sodium (Lovenox) 40 mg SC DAILY [facility]; Protocol Last Admin: 02/22/18 09:09 Dose: 40 mg Fentanyl (Duragesic) 1 patch TD Q72 [facility] Last Admin: 02/22/18 09:07 Dose: 1 patch Hydromorphone HCl (Dilaudid) 2 mg PO Q4 PRN PRN Reason: Pain, severe (8-10) Last Admin: 02/22/18 11:06 Dose: 2 mg Meropenem (Merrem Iv 1 Gm Premix) 1 gm in 50 mls @ 100 mls/hr IVPB Q8 [facility]; Protocol Stop: 02/25/18 14:32 Last Admin: 02/22/18 05:12 Dose: 100 mls/hr Vancomycin HCl (Vancomycin 1gm) 1 gm in 250 mls @ 167 mls/hr IVPB Q12H [facility]; Protocol Last Admin: 02/22/18 05:11 Dose: 167 mls/hr Mirtazapine (Remeron) 30 mg PO HS [facility] Last Admin: 02/21/18 21:45 Dose: 30 mg Non-Formulary Medication (Temazepam [Restoril]) 15 mg PO [facility] Last Admin: 02/21/18 00:38 Dose: Not Given Ondansetron HCl (Zofran Inj) 4 mg IVP Q6H PRN PRN Reason: Nausea/Vomiting Paroxetine HCl (Paxil) 40 mg PO DAILY [facility] Last Admin: 02/22/18 09:11 Dose: 40 mg Pregabalin (Lyrica) 50 mg PO BID [facility] Last Admin: 02/22/18 09:09 Dose: 50 mg Quetiapine Fumarate (Seroquel Xr) 300 mg PO HS [facility]; Protocol Last Admin: 02/21/18 21:45 Dose: 300 mg - Labs Labs: 02/21/18 06:30 02/21/18 06:30 - Constitutional Appears: No Acute Distress - Head Exam Head Exam: ATRAUMATIC, NORMAL INSPECTION, NORMOCEPHALIC - Eye Exam Eye Exam: Normal appearance, PERRL Pupil Exam: NORMAL ACCOMODATION, PERRL - ENT Exam ENT Exam: Mucous Membranes Moist - Respiratory Exam Respiratory Exam: Clear to Ausculation Bilateral, NORMAL BREATHING PATTERN. absent: Rales, Rhonchi, Wheezes - Cardiovascular Exam Cardiovascular Exam: REGULAR RHYTHM, +S1, +S2. absent: Gallop, Rubs, Murmur - GI/Abdominal Exam GI & Abdominal Exam: Soft, Normal Bowel Sounds. absent: Rigid, Tenderness, Rebound - Extremities Exam Extremities Exam: absent: Calf Tenderness, Pedal Edema - Neurological Exam Neurological Exam: Alert, Awake, CN II-XII Intact, Oriented x3 - Skin Skin Exam: Dry, Warm Assessment and Plan - Assessment and Plan (Free Text) Assessment: 1. 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 UTI - urine culture positive for staph aureus 3. Sciatica 4. Bipolar 5. Depression Plan: Cultures pending. Negative thus far. Patient is on Merrem and Vancomycin day #7. Will check Vanco trough. Patient will need prolonged antibiotics. Will order PICC line. Will continue to monitor clinically. Case seen, discussed and reviewed with Dr. Vickie Landaverde PGY3 <Delvis Johnston S - Last Filed: 02/22/18 17:24> Objective - Vital Signs/Intake and Output Vital Signs (last 24 hours): Temp Pulse Resp BP Pulse Ox 98.2 F 86 18 116/75 93 L 02/22/18 14:00 02/22/18 14:00 02/22/18 14:00 02/22/18 14:00 02/22/18 14:00 - Medications Medications: Current Medications Acetaminophen (Tylenol 325mg Tab) 650 mg PO Q4 PRN PRN Reason: Pain, Mild (1-3) Buspirone HCl (Buspar) 15 mg PO TID [facility] Last Admin: 02/22/18 14:56 Dose: 15 mg Clonazepam (Klonopin) 0.5 mg PO BID [facility]; Protocol Last Admin: 02/22/18 09:09 Dose: 0.5 mg Docusate Sodium (Colace) 100 mg PO BID [facility] Last Admin: 02/22/18 09:11 Dose: 100 mg Enoxaparin Sodium (Lovenox) 40 mg SC DAILY [facility]; Protocol Last Admin: 02/22/18 09:09 Dose: 40 mg Fentanyl (Duragesic) 1 patch TD Q72 [facility] Last Admin: 02/22/18 09:07 Dose: 1 patch Hydromorphone HCl (Dilaudid) 2 mg PO Q4 PRN PRN Reason: Pain, severe (8-10) Last Admin: 02/22/18 17:08 Dose: 2 mg Meropenem (Merrem Iv 1 Gm Premix) 1 gm in 50 mls @ 100 mls/hr IVPB Q8 [facility]; Protocol Stop: 02/25/18 14:32 Last Admin: 02/22/18 14:57 Dose: 100 mls/hr Vancomycin HCl (Vancomycin 1gm) 1 gm in 250 mls @ 167 mls/hr IVPB Q12H [facility]; Protocol Last Admin: 02/22/18 05:11 Dose: 167 mls/hr Mirtazapine (Remeron) 30 mg PO HS [facility] Last Admin: 02/21/18 21:45 Dose: 30 mg Non-Formulary Medication (Temazepam [Restoril]) 15 mg PO HS [facility] Last Admin: 02/21/18 00:38 Dose: Not Given Ondansetron HCl (Zofran Inj) 4 mg IVP Q6H PRN PRN Reason: Nausea/Vomiting Paroxetine HCl (Paxil) 40 mg PO DAILY [facility] Last Admin: 02/22/18 09:11 Dose: 40 mg Pregabalin (Lyrica) 50 mg PO BID [facility] Last Admin: 02/22/18 09:09 Dose: 50 mg Quetiapine Fumarate (Seroquel Xr) 300 mg PO HS [facility]; Protocol Last Admin: 02/21/18 21:45 Dose: 300 mg - Labs Labs: 02/21/18 06:30 02/21/18 06:30 Assessment and Plan - Assessment and Plan (Free Text) Plan: Infectious Diseases Attending Physician Attestation Patient seen and examined, discussed with medical transport specialist. I have reviewed the patient's history of present illness, past medical, family and social histories, personal history, physical exam, lab findings and imaging studies. I agree with the above findings, assessment and plan. In addition, will continue Merrem and Vancomycin for possible L4-L5 discitis / vertebral osteomyelitis. Patient had CT-guided biopsy 2 days ago and will follow up results. Will continue to monitor clinically. Patient will need at least 6 weeks of antibiotics, if not more.
[2018-02-22] MEDS: QUEtiapine 300 mg XR Tab PO SCH (21:19)
[2018-02-22] MEDS: Sodium Chloride 0.45% 1,000 ML IV SCH (21:21)
[2018-02-23] MEDS: Meropenem IV 1 gm in NS 1 GM/50 ML BAG IVPB SCH ×3 (05:56→22:00)
[2018-02-23] MEDS: Vancomycin 1gm in NS 250ml 1 GM/250 ML BAG IVPB SCH (05:57)
--- NOTE | 2018-02-23 06:53 | CP.PCM.PN ---
<Mery Landaverde - Last Filed: 02/23/18 12:09> Subjective - Date & Time of Evaluation Date of Evaluation: 02/23/18 Time of Evaluation: 07:00 - Subjective Subjective: Infectious Disease Progress Note for Tom Burgos PGY3 Patient seen and examined at bedside. There were no acute overnight events as per nursing staff. Patient is resting comfortably in bed. She remains afebrile. Objective - Vital Signs/Intake and Output Vital Signs (last 24 hours): Temp Pulse Resp BP Pulse Ox 98.0 F 88 19 136/85 93 L 02/22/18 22:00 02/22/18 22:00 02/22/18 22:00 02/22/18 22:00 02/22/18 22:00 Intake and Output: 02/22/18 02/23/18 18:59 06:59 Intake Total 250 Balance 250 - Medications Medications: Current Medications Acetaminophen (Tylenol 325mg Tab) 650 mg PO Q4 PRN PRN Reason: Pain, Mild (1-3) Buspirone HCl (Buspar) 15 mg PO TID [facility] Last Admin: 02/22/18 14:56 Dose: 15 mg Clonazepam (Klonopin) 0.5 mg PO BID [facility]; Protocol Last Admin: 02/22/18 17:40 Dose: 0.5 mg Docusate Sodium (Colace) 100 mg PO BID [facility] Last Admin: 02/22/18 17:39 Dose: 100 mg Enoxaparin Sodium (Lovenox) 40 mg SC DAILY [facility]; Protocol Last Admin: 02/22/18 09:09 Dose: 40 mg Fentanyl (Duragesic) 1 patch TD Q72 [facility] Last Admin: 02/22/18 09:07 Dose: 1 patch Hydromorphone HCl (Dilaudid) 2 mg PO Q4 PRN PRN Reason: Pain, severe (8-10) Last Admin: 02/23/18 01:36 Dose: 2 mg Meropenem (Merrem Iv 1 Gm Premix) 1 gm in 50 mls @ 100 mls/hr IVPB Q8 [facility]; Protocol Stop: 02/25/18 14:32 Last Admin: 02/23/18 05:56 Dose: 100 mls/hr Vancomycin HCl (Vancomycin 1gm) 1 gm in 250 mls @ 167 mls/hr IVPB Q12H [facility]; Protocol Last Admin: 02/23/18 05:57 Dose: 167 mls/hr Mirtazapine (Remeron) 30 mg PO [facility] Last Admin: 02/21/18 21:45 Dose: 30 mg Non-Formulary Medication (Temazepam [Restoril]) 15 mg PO [facility] Last Admin: 02/21/18 00:38 Dose: Not Given Ondansetron HCl (Zofran Inj) 4 mg IVP Q6H PRN PRN Reason: Nausea/Vomiting Paroxetine HCl (Paxil) 40 mg PO DAILY [facility] Last Admin: 02/22/18 09:11 Dose: 40 mg Pregabalin (Lyrica) 50 mg PO BID [facility] Last Admin: 02/22/18 17:39 Dose: 50 mg Quetiapine Fumarate (Seroquel Xr) 300 mg PO [facility]; Protocol Last Admin: 02/22/18 21:19 Dose: 300 mg - Labs Labs: 02/21/18 06:30 02/21/18 06:30 - Constitutional Appears: No Acute Distress - Head Exam Head Exam: ATRAUMATIC, NORMAL INSPECTION, NORMOCEPHALIC - Eye Exam Eye Exam: Normal appearance, PERRL Pupil Exam: NORMAL ACCOMODATION, PERRL - ENT Exam ENT Exam: Mucous Membranes Moist - Respiratory Exam Respiratory Exam: Clear to Ausculation Bilateral, NORMAL BREATHING PATTERN. absent: Rales, Rhonchi, Wheezes - Cardiovascular Exam Cardiovascular Exam: REGULAR RHYTHM, +S1, +S2. absent: Gallop, Rubs, Murmur - GI/Abdominal Exam GI & Abdominal Exam: Soft, Normal Bowel Sounds. absent: Rigid, Tenderness, Mass, Rebound - Extremities Exam Extremities Exam: Normal Inspection. absent: Calf Tenderness, Pedal Edema - Back Exam Back Exam: paraspinal tenderness (lumbar). absent: rash noted - Neurological Exam Neurological Exam: Alert, Awake, CN II-XII Intact Neuro motor strength exam: Left Upper Extremity: 5, Right Upper Extremity: 5, Left Lower Extremity: 3, Right Lower Extremity: 5 - Psychiatric Exam Psychiatric exam: Normal Affect, Normal Mood - Skin Skin Exam: Dry, Warm Assessment and Plan - Assessment and Plan (Free Text) Assessment: 1. 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 UTI - urine culture positive for staph aureus 3. Sciatica 4. Bipolar 5. Depression Plan: Cultures negative thus far. Continue Merrem and Vancomycin day #8. Vanco trough needs to be collected 1 hr before dose. Will repeat. Patient will need prolonged antibiotics >6weeks. PICC line ordered. Will continue to clinically. Case seen, discussed and reviewed with Dr. Vickie Landaverde PGY3 <Delvis Johnston - Last Filed: 02/23/18 12:46> Objective - Vital Signs/Intake and Output Vital Signs (last 24 hours): Temp Pulse Resp BP Pulse Ox 98.6 F 81 18 112/75 96 02/23/18 06:00 02/23/18 06:00 02/23/18 06:00 02/23/18 06:00 02/23/18 06:00 Intake and Output: 02/23/18 02/23/18 06:59 18:59 Intake Total 250 Balance 250 - Medications Medications: Current Medications Acetaminophen (Tylenol 325mg Tab) 650 mg PO Q4 PRN PRN Reason: Pain, Mild (1-3) Buspirone HCl (Buspar) 15 mg PO TID [facility] Last Admin: 02/23/18 10:54 Dose: 15 mg Clonazepam (Klonopin) 0.5 mg PO BID [facility]; Protocol Last Admin: 02/23/18 10:58 Dose: 0.5 mg Docusate Sodium (Colace) 100 mg PO BID [facility] Last Admin: 02/23/18 10:54 Dose: 100 mg Enoxaparin Sodium (Lovenox) 40 mg SC DAILY [facility]; Protocol Last Admin: 02/23/18 10:54 Dose: 40 mg Fentanyl (Duragesic) 1 patch TD Q72 [facility] Last Admin: 02/22/18 09:07 Dose: 1 patch Hydromorphone HCl (Dilaudid) 2 mg PO Q4 PRN PRN Reason: Pain, severe (8-10) Last Admin: 02/23/18 10:58 Dose: 2 mg Meropenem (Merrem Iv 1 Gm Premix) 1 gm in 50 mls @ 100 mls/hr IVPB Q8 [facility]; Protocol Stop: 02/25/18 14:32 Last Admin: 02/23/18 05:56 Dose: 100 mls/hr Vancomycin HCl (Vancomycin 1gm) 1 gm in 250 mls @ 167 mls/hr IVPB Q12H [facility]; Protocol Last Admin: 02/23/18 05:57 Dose: 167 mls/hr Mirtazapine (Remeron) 30 mg PO HS [facility] Last Admin: 02/21/18 21:45 Dose: 30 mg Ondansetron HCl (Zofran Inj) 4 mg IVP Q6H PRN PRN Reason: Nausea/Vomiting Paroxetine HCl (Paxil) 40 mg PO DAILY [facility] Last Admin: 02/23/18 10:55 Dose: 40 mg Pregabalin (Lyrica) 50 mg PO BID [facility] Last Admin: 02/23/18 10:55 Dose: 50 mg Quetiapine Fumarate (Seroquel Xr) 300 mg PO HS [facility]; Protocol Last Admin: 02/22/18 21:19 Dose: 300 mg - Labs Labs: 02/23/18 07:00 02/23/18 07:00 Assessment and Plan - Assessment and Plan (Free Text) Plan: Infectious Diseases Attending Physician Attestation Patient seen and examined, discussed with curator medical museum. I have reviewed the patient's history of present illness, past medical, family and social histories, personal history, physical exam, lab findings and imaging studies. I agree with the above findings, assessment and plan. In addition, will continue Merrem and Vancomycin for possible L4-L5 discitis / vertebral osteomyelitis. Patient had CT -guided biopsy 3 days ago and will follow up final results (which are negative so far). Will continue to monitor clinically. Patient will need at least 6 weeks of antibiotics, if not more and will need to get an accurate Vanco trough first (with target 15-20) prior to any discharge plan. Will also need weekly ESR, CRP, CBC, CMP, Vanco trough while on the antibiotics.
[2018-02-23 07:41] LABS: BASO # 0.04 K/mm3 (0.0-2.0); BASO % 0.4 % (0.0-3.0); EOS # 0.3 (0.0-0.7); GRAN # 5.51 (1.4-6.5); GRAN % 56.4 % (50.0-68.0); HEMOGLOBIN 10.7 g/dL (12.0-16.0); LYMPH # 2.8 (1.2-3.4); LYMPH % 28.2 % (22.0-35.0); MEAN CELL VOLUME 91.9 fl (80.0-105.0); MEAN CORPUSCULAR HEMOGLOBIN 29.8 pg (25.0-35.0); MEAN CORPUSCULAR HGB CONC 32.4 g/dl (31.0-37.0); MONO # 1.2 (0.1-0.6); RBC 3.59 10^6/uL (3.5-6.1); RED CELL DISTRIBUTION WIDTH 14.3 % (11.5-14.5); WHITE BLOOD COUNT 9.8 10^3/uL (4.5-11.0)
[2018-02-23 07:57] LABS: ALB/GLOB RATIO 0.9 (1.1-1.8); ALBUMIN 2.7 g/dL (3.0-4.8); ALT/SGPT 42 U/L (7-56); AST/SGOT 32 U/L (14-36); BLOOD UREA NITROGEN 13 mg/dL (7-21); CALCIUM 8.1 mg/dL (8.4-10.5); GFR NON-AFRICAN AMERICAN > 60
[2018-02-23] MEDS: Enoxaparin 40 mg Syringe SC SCH (10:54)
--- NOTE | 2018-02-23 13:09 | CP.PCM.PN ---
<Rodolfo Mccarthy - Last Filed: 02/23/18 13:11> Subjective - Date & Time of Evaluation Date of Evaluation: 02/23/18 Time of Evaluation: 08:00 - Subjective Subjective: Rodolfo Mccarthy DO, PGY-2: Progress Note for Dr. Dao Patient was seen and examined at bedside. Code star noted overnight. Patient has no complains today. She was curious how long she will be in the hospital. We informed her that she will be going to rehab for her gait instability from here. Objective - Vital Signs/Intake and Output Vital Signs (last 24 hours): Temp Pulse Resp BP Pulse Ox 98.6 F 81 18 112/75 96 02/23/18 06:00 02/23/18 06:00 02/23/18 06:00 02/23/18 06:00 02/23/18 06:00 Intake and Output: 02/23/18 02/23/18 06:59 18:59 Intake Total 250 Balance 250 - Medications Medications: Current Medications Acetaminophen (Tylenol 325mg Tab) 650 mg PO Q4 PRN PRN Reason: Pain, Mild (1-3) Buspirone HCl (Buspar) 15 mg PO TID [facility] Last Admin: 02/23/18 10:54 Dose: 15 mg Clonazepam (Klonopin) 0.5 mg PO BID [facility]; Protocol Last Admin: 02/23/18 10:58 Dose: 0.5 mg Docusate Sodium (Colace) 100 mg PO BID [facility] Last Admin: 02/23/18 10:54 Dose: 100 mg Enoxaparin Sodium (Lovenox) 40 mg SC DAILY [facility]; Protocol Last Admin: 02/23/18 10:54 Dose: 40 mg Fentanyl (Duragesic) 1 patch TD Q72 [facility] Last Admin: 02/22/18 09:07 Dose: 1 patch Hydromorphone HCl (Dilaudid) 2 mg PO Q4 PRN PRN Reason: Pain, severe (8-10) Last Admin: 02/23/18 10:58 Dose: 2 mg Meropenem (Merrem Iv 1 Gm Premix) 1 gm in 50 mls @ 100 mls/hr IVPB Q8 [facility]; Protocol Stop: 02/25/18 14:32 Last Admin: 02/23/18 05:56 Dose: 100 mls/hr Vancomycin HCl (Vancomycin 1gm) 1 gm in 250 mls @ 167 mls/hr IVPB Q12H [facility]; Protocol Last Admin: 02/23/18 05:57 Dose: 167 mls/hr Mirtazapine (Remeron) 30 mg PO HS [facility] Last Admin: 02/21/18 21:45 Dose: 30 mg Ondansetron HCl (Zofran Inj) 4 mg IVP Q6H PRN PRN Reason: Nausea/Vomiting Paroxetine HCl (Paxil) 40 mg PO DAILY [facility] Last Admin: 02/23/18 10:55 Dose: 40 mg Pregabalin (Lyrica) 50 mg PO BID [facility] Last Admin: 02/23/18 10:55 Dose: 50 mg Quetiapine Fumarate (Seroquel Xr) 300 mg PO HS [facility]; Protocol Last Admin: 02/22/18 21:19 Dose: 300 mg - Labs Labs: 02/23/18 07:00 02/23/18 07:00 - Constitutional Appears: Non-toxic, No Acute Distress - Head Exam Head Exam: ATRAUMATIC, NORMOCEPHALIC - Eye Exam Eye Exam: EOMI, Normal appearance - ENT Exam ENT Exam: Mucous Membranes Moist - Neck Exam Neck Exam: Normal Inspection - Respiratory Exam Respiratory Exam: Clear to Ausculation Bilateral, NORMAL BREATHING PATTERN. absent: Accessory Muscle Use - Cardiovascular Exam Cardiovascular Exam: RRR, +S1, +S2 - GI/Abdominal Exam GI & Abdominal Exam: Soft, Normal Bowel Sounds - Extremities Exam Extremities Exam: Normal Inspection. absent: Calf Tenderness - Back Exam Back Exam: NORMAL INSPECTION. absent: CVA tenderness (L), CVA tenderness (R) - Neurological Exam Neurological Exam: Alert, Awake, Oriented x3 - Psychiatric Exam Psychiatric exam: Flat Affect - Skin Skin Exam: Dry, Intact, Normal Color, Warm Assessment and Plan - Assessment and Plan (Free Text) Assessment: 57 year old female with a past medical history of sciatica, affective disorder, and falls who presents with inability to move left leg and MRI of lumbar spine shows findings suspicious for diskitis osteomyelitis. Neurosurgery, neurology, interventional radiology and ID are following. Today, patient is scheduled for biopsy of the L3-L4 vertebral space to be performed by Interventional Radiology to ascertain pathogen.She is currently on Vancomycin and Merropenem and will need at the least 6 weeks of antibiotics per Infectious Recommendations. community health worker and nurse were informed patient needs to be re-evaluated by physical therapy for acute rehabilitation given she cannot ambulate due to her leg issue. Plan: 1) Left leg weakness: Diskitis Osteomyelitis - Continue Vancomycin and Merropenem for at least 5 more weeks. Vancomycin trough should be between 15-20. - Biopsy thus far negative - ESR was 51 tomorrow - Urine cultures growing Staph aureus - CT abdomen and pelvis shows bibasilar scarring versus atelectasis, right hepatic lobe cyst or hemangioma, and cholecystecomy. - Neurosurgery recommends no intervention at this time - Neurology consulted, Dr. Goldstein - Physical therapy recommends acute rehabilitation or [facility] 2) UTI - Continue antibiotics per Infectious Disease 3) Anxiety disorder - Clonazepam 0.5 mg BID - Paroxetine 40 mg PO HS 4) Chronic nerve pain - Hydromorphone 2 mg q4h PO PRN - Duralgesic 1 patch q72 5) Insomnia - Continue Restoril - Seroquel 300 mg HS 6) DVT/GI prophylaxis - Lovenox 40 mg SC daily Case was reviewed and discussed with attending physician, Dr. Dao <Donn Dao S - Last Filed: 02/23/18 18:26> Objective - Vital Signs/Intake and Output Vital Signs (last 24 hours): Temp Pulse Resp BP Pulse Ox 98.1 F 90 20 117/80 95 02/23/18 14:00 02/23/18 14:00 02/23/18 14:00 02/23/18 14:00 02/23/18 14:00 Intake and Output: 02/23/18 02/23/18 06:59 18:59 Intake Total 250 Balance 250 - Medications Medications: Current Medications Acetaminophen (Tylenol 325mg Tab) 650 mg PO Q4 PRN PRN Reason: Pain, Mild (1-3) Buspirone HCl (Buspar) 15 mg PO TID [facility] Last Admin: 02/23/18 17:54 Dose: 15 mg Clonazepam (Klonopin) 0.5 mg PO BID [facility]; Protocol Last Admin: 02/23/18 17:54 Dose: 0.5 mg Docusate Sodium (Colace) 100 mg PO BID [facility] Last Admin: 02/23/18 17:55 Dose: Not Given Enoxaparin Sodium (Lovenox) 40 mg SC DAILY [facility]; Protocol Last Admin: 02/23/18 10:54 Dose: 40 mg Fentanyl (Duragesic) 1 patch TD Q72 [facility] Last Admin: 02/22/18 09:07 Dose: 1 patch Hydromorphone HCl (Dilaudid) 2 mg PO Q4 PRN PRN Reason: Pain, severe (8-10) Last Admin: 02/23/18 15:00 Dose: 2 mg Meropenem (Merrem Iv 1 Gm Premix) 1 gm in 50 mls @ 100 mls/hr IVPB Q8 [facility]; Protocol Stop: 02/25/18 14:32 Last Admin: 02/23/18 14:45 Dose: 100 mls/hr Mirtazapine (Remeron) 30 mg PO HS [facility] Last Admin: 02/21/18 21:45 Dose: 30 mg Ondansetron HCl (Zofran Inj) 4 mg IVP Q6H PRN PRN Reason: Nausea/Vomiting Paroxetine HCl (Paxil) 40 mg PO DAILY [facility] Last Admin: 02/23/18 10:55 Dose: 40 mg Pregabalin (Lyrica) 50 mg PO BID [facility] Last Admin: 02/23/18 17:54 Dose: 50 mg Quetiapine Fumarate (Seroquel Xr) 300 mg PO HS [facility]; Protocol Last Admin: 02/22/18 21:19 Dose: 300 mg - Labs Labs: 02/23/18 07:00 02/23/18 07:00 Assessment and Plan - Assessment and Plan (Free Text) Assessment: Pt seen and examined. I have reviewed the note of the anesthesiology medical doctor and agree with it. I have discussed the assessment and plan with the resident. I have reviewed the patient's labs and medications. Pt with discitis and is on IV Abx. She was not able to get a PICC line yesterday. It was not a successful attempt. She has a PICC line ordered for today. She will need acute rehab and probably [facility] with a total of 5 weeks of IV Abx for a total of 6 weeks.
[2018-02-23] MEDS: QUEtiapine 300 mg XR Tab PO SCH (22:00)
[2018-02-24] MEDS: Meropenem IV 1 gm in NS 1 GM/50 ML BAG IVPB SCH ×3 (05:32→22:34)
--- NOTE | 2018-02-24 06:34 | CP.PCM.PN ---
<Mery Landaverde - Last Filed: 02/24/18 11:36> Subjective - Date & Time of Evaluation Date of Evaluation: 02/24/18 Time of Evaluation: 07:00 - Subjective Subjective: Infectious Disease Progress Note for Tom Burgos PGY3 Patient seen and examined at bedside. Patient is resting in bed and is afebrile. Her L leg range of motion has improved. Objective - Vital Signs/Intake and Output Vital Signs (last 24 hours): Temp Pulse Resp BP Pulse Ox 98.4 F 84 20 144/89 98 02/23/18 23:12 02/23/18 23:12 02/23/18 23:12 02/23/18 23:12 02/23/18 23:12 - Medications Medications: Current Medications Acetaminophen (Tylenol 325mg Tab) 650 mg PO Q4 PRN PRN Reason: Pain, Mild (1-3) Buspirone HCl (Buspar) 15 mg PO TID [facility] Last Admin: 02/23/18 17:54 Dose: 15 mg Clonazepam (Klonopin) 0.5 mg PO BID [facility]; Protocol Last Admin: 02/23/18 17:54 Dose: 0.5 mg Docusate Sodium (Colace) 100 mg PO BID [facility] Last Admin: 02/23/18 17:55 Dose: Not Given Enoxaparin Sodium (Lovenox) 40 mg SC DAILY [facility]; Protocol Last Admin: 02/23/18 10:54 Dose: 40 mg Fentanyl (Duragesic) 1 patch TD Q72 [facility] Last Admin: 02/22/18 09:07 Dose: 1 patch Hydromorphone HCl (Dilaudid) 2 mg PO Q4 PRN PRN Reason: Pain, severe (8-10) Last Admin: 02/23/18 21:59 Dose: 2 mg Meropenem (Merrem Iv 1 Gm Premix) 1 gm in 50 mls @ 100 mls/hr IVPB Q8 [facility]; Protocol Stop: 02/25/18 14:32 Last Admin: 02/24/18 05:32 Dose: 100 mls/hr Mirtazapine (Remeron) 30 mg PO HS [facility] Last Admin: 02/23/18 21:59 Dose: 30 mg Ondansetron HCl (Zofran Inj) 4 mg IVP Q6H PRN PRN Reason: Nausea/Vomiting Paroxetine HCl (Paxil) 40 mg PO DAILY [facility] Last Admin: 02/23/18 10:55 Dose: 40 mg Pregabalin (Lyrica) 50 mg PO BID [facility] Last Admin: 02/23/18 17:54 Dose: 50 mg Quetiapine Fumarate (Seroquel Xr) 300 mg PO HS [facility]; Protocol Last Admin: 02/23/18 22:00 Dose: 300 mg - Labs Labs: 02/23/18 07:00 02/23/18 07:00 - Constitutional Appears: No Acute Distress - Head Exam Head Exam: ATRAUMATIC, NORMAL INSPECTION, NORMOCEPHALIC - Eye Exam Eye Exam: Normal appearance, PERRL Pupil Exam: NORMAL ACCOMODATION, PERRL - ENT Exam ENT Exam: Mucous Membranes Moist - Respiratory Exam Respiratory Exam: Clear to Ausculation Bilateral, NORMAL BREATHING PATTERN. absent: Rales, Rhonchi, Wheezes - Cardiovascular Exam Cardiovascular Exam: REGULAR RHYTHM, +S1, +S2. absent: Gallop, Rubs, Murmur - GI/Abdominal Exam GI & Abdominal Exam: Soft, Normal Bowel Sounds. absent: Rigid, Tenderness, Mass, Rebound - Extremities Exam Extremities Exam: absent: Calf Tenderness, Pedal Edema - Neurological Exam Neurological Exam: Alert, Awake, CN II-XII Intact - Psychiatric Exam Psychiatric exam: Normal Affect, Normal Mood - Skin Skin Exam: Dry, Warm Assessment and Plan - Assessment and Plan (Free Text) Assessment: 1. 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 UTI - urine culture positive for staph aureus 3. Sciatica 4. Bipolar 5. Depression Plan: Patient is on Merrem #9. She will need 6 more weeks of IV antibiotics. PICC line is in place. Vanc trough is low. Will d/c Vanc and start daptomycin. She will need weekly CRP, ESR, CBC, CMP upon d/c. Will continue to clinically. Case seen, discussed and reviewed with Dr. Vickie Landaverde PGY3 <Delvis Johnston - Last Filed: 02/24/18 14:03> Objective - Vital Signs/Intake and Output Vital Signs (last 24 hours): Temp Pulse Resp BP Pulse Ox 98 F 77 18 122/80 97 02/24/18 06:00 02/24/18 06:00 02/24/18 06:00 02/24/18 06:00 02/24/18 06:00 - Medications Medications: Current Medications Acetaminophen (Tylenol 325mg Tab) 650 mg PO Q4 PRN PRN Reason: Pain, Mild (1-3) Buspirone HCl (Buspar) 15 mg PO TID [facility] Last Admin: 02/24/18 09:57 Dose: 15 mg Clonazepam (Klonopin) 0.5 mg PO BID [facility]; Protocol Last Admin: 02/24/18 09:58 Dose: 0.5 mg Docusate Sodium (Colace) 100 mg PO BID [facility] Last Admin: 02/24/18 09:57 Dose: 100 mg Enoxaparin Sodium (Lovenox) 40 mg SC DAILY [facility]; Protocol Last Admin: 02/24/18 09:58 Dose: 40 mg Fentanyl (Duragesic) 1 patch TD Q72 [facility] Last Admin: 02/22/18 09:07 Dose: 1 patch Hydromorphone HCl (Dilaudid) 2 mg PO Q4 PRN PRN Reason: Pain, severe (8-10) Last Admin: 02/24/18 11:52 Dose: 2 mg Meropenem (Merrem Iv 1 Gm Premix) 1 gm in 50 mls @ 100 mls/hr IVPB Q8 [facility]; Protocol Stop: 02/25/18 14:32 Last Admin: 02/24/18 05:32 Dose: 100 mls/hr Daptomycin 400 mg/ Sodium (Chloride) 100 mls @ 200 mls/hr IV Q24H [facility]; Protocol Stop: 02/28/18 10:29 Last Admin: 02/24/18 11:45 Dose: 200 mls/hr Mirtazapine (Remeron) 30 mg PO HS [facility] Last Admin: 02/23/18 21:59 Dose: 30 mg Ondansetron HCl (Zofran Inj) 4 mg IVP Q6H PRN PRN Reason: Nausea/Vomiting Paroxetine HCl (Paxil) 40 mg PO DAILY [facility] Last Admin: 02/24/18 09:58 Dose: 40 mg Pregabalin (Lyrica) 50 mg PO BID [facility] Last Admin: 02/24/18 09:58 Dose: 50 mg Quetiapine Fumarate (Seroquel Xr) 300 mg PO HS [facility]; Protocol Last Admin: 02/23/18 22:00 Dose: 300 mg - Labs Labs: 02/23/18 07:00 02/23/18 07:00 Assessment and Plan - Assessment and Plan (Free Text) Plan: Infectious Diseases Attending Physician Attestation Patient seen and examined, discussed with medical front desk coordinator. I have reviewed the patient's history of present illness, past medical, family and social histories, personal history, physical exam, lab findings and imaging studies. I agree with the above findings, assessment and plan. In addition, will continue Merrem and Vancomycin for possible L4-L5 discitis / vertebral osteomyelitis. Patient had CT-guided biopsy days ago and will follow up final results (which are negative so far). Will continue to monitor clinically. Patient will need at least 6 weeks of antibiotics, if not more and since we are not able to get a good Vanco trough, we have switched to IV DaptomycinWill also need weekly ESR, CRP, CBC, CMP, CPK while on the antibiotics.
[2018-02-24] MEDS ORDERED: Vancomycin 1gm in NS 250ml 1 GM/250 ML BAG IVPB SCH (08:15)
[2018-02-24] MEDS ORDERED: Vancomycin 750mg 750 MG/250 ML BAG IVPB SCH (09:15)
--- NOTE | 2018-02-24 09:54 | CP.PCM.PN ---
<Blayne Lucio Amador - Last Filed: 02/24/18 09:56> Subjective - Date & Time of Evaluation Date of Evaluation: 02/22/18 Time of Evaluation: 17:00 - Subjective Subjective: Jun Moreno - Khadijah, PGY - 2 Subjective Code star was called on this 57 F with pertinent medical history of affective disorder and recent falls. Based on history obtained from patient, RN came in to give medications through IV, so patient told her that earlier, she had "slipped on [her] sock, which was half on," and had knocked her arm against the railing of the bed, so was unsure if the IV was still working. She did not actually fall, did not have any head injury, nor did she have any other injury. Objective Vitals were stable at the time of exam, patient was AA&OX4, and was in no acute distress, providing credible history. Patient was CTAB, RRR, S/NT/ND abdomen. Thorough neuro exam was performed - CN II-XII in tact, no motor deficit, no sensory deficit in bilateral UE and LE, and no slurring in speech nor facial droop. There was no evidence of any other bruising or injury on her body. Assessment and Plan - Will monitor patient's vitals and behavior to look for any acute changes - No intervention or imaging necessary at this time Objective - Vital Signs/Intake and Output Vital Signs (last 24 hours): Temp Pulse Resp BP Pulse Ox 98 F 77 18 122/80 97 02/24/18 06:00 02/24/18 06:00 02/24/18 06:00 02/24/18 06:00 02/24/18 06:00 - Medications Medications: Current Medications Acetaminophen (Tylenol 325mg Tab) 650 mg PO Q4 PRN PRN Reason: Pain, Mild (1-3) Buspirone HCl (Buspar) 15 mg PO TID [facility] Last Admin: 02/23/18 17:54 Dose: 15 mg Clonazepam (Klonopin) 0.5 mg PO BID [facility]; Protocol Last Admin: 02/23/18 17:54 Dose: 0.5 mg Docusate Sodium (Colace) 100 mg PO BID [facility] Last Admin: 02/23/18 17:55 Dose: Not Given Enoxaparin Sodium (Lovenox) 40 mg SC DAILY [facility]; Protocol Last Admin: 02/23/18 10:54 Dose: 40 mg Fentanyl (Duragesic) 1 patch TD Q72 [facility] Last Admin: 02/22/18 09:07 Dose: 1 patch Hydromorphone HCl (Dilaudid) 2 mg PO Q4 PRN PRN Reason: Pain, severe (8-10) Last Admin: 02/23/18 21:59 Dose: 2 mg Meropenem (Merrem Iv 1 Gm Premix) 1 gm in 50 mls @ 100 mls/hr IVPB Q8 [facility]; Protocol Stop: 02/25/18 14:32 Last Admin: 02/24/18 05:32 Dose: 100 mls/hr Daptomycin 400 mg/ Sodium (Chloride) 100 mls @ 200 mls/hr IV Q24H [facility]; Protocol Stop: 02/28/18 10:29 Mirtazapine (Remeron) 30 mg PO HS [facility] Last Admin: 02/23/18 21:59 Dose: 30 mg Ondansetron HCl (Zofran Inj) 4 mg IVP Q6H PRN PRN Reason: Nausea/Vomiting Paroxetine HCl (Paxil) 40 mg PO DAILY [facility] Last Admin: 02/23/18 10:55 Dose: 40 mg Pregabalin (Lyrica) 50 mg PO BID [facility] Last Admin: 02/23/18 17:54 Dose: 50 mg Quetiapine Fumarate (Seroquel Xr) 300 mg PO HS [facility]; Protocol Last Admin: 02/23/18 22:00 Dose: 300 mg - Labs Labs: 02/23/18 07:00 02/23/18 07:00 <Donn Dao - Last Filed: 02/24/18 19:56> Objective - Vital Signs/Intake and Output Vital Signs (last 24 hours): Temp Pulse Resp BP Pulse Ox 98.7 F 92 H 16 122/74 95 02/24/18 14:00 02/24/18 14:00 02/24/18 14:00 02/24/18 14:00 02/24/18 14:00 - Medications Medications: Current Medications Acetaminophen (Tylenol 325mg Tab) 650 mg PO Q4 PRN PRN Reason: Pain, Mild (1-3) Buspirone HCl (Buspar) 15 mg PO TID [facility] Last Admin: 02/24/18 18:11 Dose: 15 mg Clonazepam (Klonopin) 0.5 mg PO BID [facility]; Protocol Last Admin: 02/24/18 17:20 Dose: 0.5 mg Docusate Sodium (Colace) 100 mg PO BID [facility] Last Admin: 02/24/18 18:11 Dose: Not Given Enoxaparin Sodium (Lovenox) 40 mg SC DAILY [facility]; Protocol Last Admin: 02/24/18 09:58 Dose: 40 mg Fentanyl (Duragesic) 1 patch TD Q72 [facility] Last Admin: 02/22/18 09:07 Dose: 1 patch Hydromorphone HCl (Dilaudid) 2 mg PO Q4 PRN PRN Reason: Pain, severe (8-10) Last Admin: 02/24/18 17:21 Dose: 2 mg Meropenem (Merrem Iv 1 Gm Premix) 1 gm in 50 mls @ 100 mls/hr IVPB Q8 [facility]; Protocol Stop: 02/25/18 14:32 Last Admin: 02/24/18 14:14 Dose: 100 mls/hr Daptomycin 400 mg/ Sodium (Chloride) 100 mls @ 200 mls/hr IV Q24H [facility]; Protocol Stop: 02/28/18 10:29 Last Admin: 02/24/18 11:45 Dose: 200 mls/hr Mirtazapine (Remeron) 30 mg PO HS [facility] Last Admin: 02/23/18 21:59 Dose: 30 mg Ondansetron HCl (Zofran Inj) 4 mg IVP Q6H PRN PRN Reason: Nausea/Vomiting Paroxetine HCl (Paxil) 40 mg PO DAILY [facility] Last Admin: 02/24/18 09:58 Dose: 40 mg Pregabalin (Lyrica) 50 mg PO BID [facility] Last Admin: 02/24/18 17:20 Dose: 50 mg Quetiapine Fumarate (Seroquel Xr) 300 mg PO HS [facility]; Protocol Last Admin: 02/23/18 22:00 Dose: 300 mg - Labs Labs: 02/23/18 07:00 02/23/18 07:00 Assessment and Plan - Assessment and Plan (Free Text) Assessment: Note has been reviewed
[2018-02-24] MEDS: Enoxaparin 40 mg Syringe SC SCH (09:58)
--- NOTE | 2018-02-24 10:37 | CP.PCM.PN ---
<Rodolfo Mccarthy - Last Filed: 02/24/18 10:39> Subjective - Date & Time of Evaluation Date of Evaluation: 02/24/18 Time of Evaluation: 10:34 - Subjective Subjective: Rodolfo Mccarthy DO, PGY-2: Progress Note for Dr. Dao Patient was seen and examined at bedside. She reports sleeping well and that her pain is well controlled. Otherwise, chart review indicates no adverse events noted overnight. Objective - Vital Signs/Intake and Output Vital Signs (last 24 hours): Temp Pulse Resp BP Pulse Ox 98 F 77 18 122/80 97 02/24/18 06:00 02/24/18 06:00 02/24/18 06:00 02/24/18 06:00 02/24/18 06:00 - Medications Medications: Current Medications Acetaminophen (Tylenol 325mg Tab) 650 mg PO Q4 PRN PRN Reason: Pain, Mild (1-3) Buspirone HCl (Buspar) 15 mg PO TID [facility] Last Admin: 02/24/18 09:57 Dose: 15 mg Clonazepam (Klonopin) 0.5 mg PO BID [facility]; Protocol Last Admin: 02/24/18 09:58 Dose: 0.5 mg Docusate Sodium (Colace) 100 mg PO BID [facility] Last Admin: 02/24/18 09:57 Dose: 100 mg Enoxaparin Sodium (Lovenox) 40 mg SC DAILY [facility]; Protocol Last Admin: 02/24/18 09:58 Dose: 40 mg Fentanyl (Duragesic) 1 patch TD Q72 [facility] Last Admin: 02/22/18 09:07 Dose: 1 patch Hydromorphone HCl (Dilaudid) 2 mg PO Q4 PRN PRN Reason: Pain, severe (8-10) Last Admin: 02/23/18 21:59 Dose: 2 mg Meropenem (Merrem Iv 1 Gm Premix) 1 gm in 50 mls @ 100 mls/hr IVPB Q8 [facility]; Protocol Stop: 02/25/18 14:32 Last Admin: 02/24/18 05:32 Dose: 100 mls/hr Daptomycin 400 mg/ Sodium (Chloride) 100 mls @ 200 mls/hr IV Q24H [facility]; Protocol Stop: 02/28/18 10:29 Mirtazapine (Remeron) 30 mg PO HS [facility] Last Admin: 02/23/18 21:59 Dose: 30 mg Ondansetron HCl (Zofran Inj) 4 mg IVP Q6H PRN PRN Reason: Nausea/Vomiting Paroxetine HCl (Paxil) 40 mg PO DAILY [facility] Last Admin: 02/24/18 09:58 Dose: 40 mg Pregabalin (Lyrica) 50 mg PO BID [facility] Last Admin: 02/24/18 09:58 Dose: 50 mg Quetiapine Fumarate (Seroquel Xr) 300 mg PO [facility]; Protocol Last Admin: 02/23/18 22:00 Dose: 300 mg - Labs Labs: 02/23/18 07:00 02/23/18 07:00 - Constitutional Appears: Well, Non-toxic - Head Exam Head Exam: ATRAUMATIC, NORMOCEPHALIC - Eye Exam Eye Exam: EOMI, Normal appearance - ENT Exam ENT Exam: Mucous Membranes Moist, Normal Oropharynx - Neck Exam Neck Exam: Normal Inspection - Respiratory Exam Respiratory Exam: Clear to Ausculation Bilateral, NORMAL BREATHING PATTERN. absent: Accessory Muscle Use - Cardiovascular Exam Cardiovascular Exam: RRR, +S1, +S2 - GI/Abdominal Exam GI & Abdominal Exam: Soft, Normal Bowel Sounds - Extremities Exam Extremities Exam: Normal Inspection. absent: Calf Tenderness - Neurological Exam Neurological Exam: Alert, Awake, Oriented x3 - Psychiatric Exam Psychiatric exam: Normal Affect, Normal Mood - Skin Skin Exam: Dry, Intact, Normal Color, Warm Assessment and Plan - Assessment and Plan (Free Text) Assessment: 57 year old female with a past medical history of sciatica, affective disorder, and falls who presents with inability to move left leg and MRI of lumbar spine shows findings suspicious for diskitis osteomyelitis. Neurosurgery, neurology, interventional radiology and ID are following. Today, patient is scheduled for biopsy of the L3-L4 vertebral space to be performed by Interventional Radiology to ascertain pathogen. She was on Vancomycin and Merropenem, but the Vancomycin was switched to Daptomycin.Patient will need at the least 6 weeks of antibiotics per Infectious Recommendations. Physical therapy recommends either acute or subacute rehabilitation given her difficulty with ambulation. cushion worker is working diligently to find acceptable placement for the patient. Plan: 1) Left leg weakness: Diskitis Osteomyelitis - Daptomycin was started today; Merropenem is to be continued - Biopsy thus far negative - Infectious disease recommends antibiotics for at least 6 weeks with weekly ESR, CRP, CBC, and CMP. - Physical therapy recommends acute rehabilitation or [facility] 2) UTI - Continue antibiotics per Infectious Disease 3) Anxiety disorder - Clonazepam 0.5 mg BID - Paroxetine 40 mg PO HS 4) Chronic nerve pain - Hydromorphone 2 mg q4h PO PRN - Duralgesic 1 patch q72 5) Insomnia - Seroquel 300 mg HS - Clonazepam 0.5 mg BID 6) DVT/GI prophylaxis - Lovenox 40 mg SC daily Case was reviewed and discussed with attending physician, Dr. aDo <Donn Dao - Last Filed: 02/24/18 19:20> Objective - Vital Signs/Intake and Output Vital Signs (last 24 hours): Temp Pulse Resp BP Pulse Ox 98.7 F 92 H 16 122/74 95 02/24/18 14:00 02/24/18 14:00 02/24/18 14:00 02/24/18 14:00 02/24/18 14:00 - Medications Medications: Current Medications Acetaminophen (Tylenol 325mg Tab) 650 mg PO Q4 PRN PRN Reason: Pain, Mild (1-3) Buspirone HCl (Buspar) 15 mg PO TID [facility] Last Admin: 02/24/18 18:11 Dose: 15 mg Clonazepam (Klonopin) 0.5 mg PO BID [facility]; Protocol Last Admin: 02/24/18 17:20 Dose: 0.5 mg Docusate Sodium (Colace) 100 mg PO BID [facility] Last Admin: 02/24/18 18:11 Dose: Not Given Enoxaparin Sodium (Lovenox) 40 mg SC DAILY [facility]; Protocol Last Admin: 02/24/18 09:58 Dose: 40 mg Fentanyl (Duragesic) 1 patch TD Q72 [facility] Last Admin: 02/22/18 09:07 Dose: 1 patch Hydromorphone HCl (Dilaudid) 2 mg PO Q4 PRN PRN Reason: Pain, severe (8-10) Last Admin: 02/24/18 17:21 Dose: 2 mg Meropenem (Merrem Iv 1 Gm Premix) 1 gm in 50 mls @ 100 mls/hr IVPB Q8 [facility]; Protocol Stop: 02/25/18 14:32 Last Admin: 11/09/18 14:14 Dose: 100 mls/hr Daptomycin 400 mg/ Sodium (Chloride) 100 mls @ 200 mls/hr IV Q24H [facility]; Protocol Stop: 02/28/18 10:29 Last Admin: 02/24/18 11:45 Dose: 200 mls/hr Mirtazapine (Remeron) 30 mg PO HS [facility] Last Admin: 02/23/18 21:59 Dose: 30 mg Ondansetron HCl (Zofran Inj) 4 mg IVP Q6H PRN PRN Reason: Nausea/Vomiting Paroxetine HCl (Paxil) 40 mg PO DAILY [facility] Last Admin: 02/24/18 09:58 Dose: 40 mg Pregabalin (Lyrica) 50 mg PO BID [facility] Last Admin: 02/24/18 17:20 Dose: 50 mg Quetiapine Fumarate (Seroquel Xr) 300 mg PO HS [facility]; Protocol Last Admin: 02/23/18 22:00 Dose: 300 mg - Labs Labs: 02/23/18 07:00 02/23/18 07:00 Assessment and Plan - Assessment and Plan (Free Text) Assessment: Pt seen and examined. I have reviewed the note of the medical cash poster and agree with it. I have discussed the assessment and plan with the resident. I have reviewed the patient's labs and medications. Pt has discitis. She is on IV Abx and will need 5 more weeks for a total of 6 weeks. She is able to walk better. Her anxiety is controlled with Paroxetine. Pt is on Duragesic and Hydromorphine for pain. Insomnia is being treated with Seroquel.
[2018-02-24] MEDS: QUEtiapine 300 mg XR Tab PO SCH (22:32)
[2018-02-25] MEDS: Meropenem IV 1 gm in NS 1 GM/50 ML BAG IVPB SCH ×3 (07:19→21:32)
--- NOTE | 2018-02-25 09:54 | PN ---
DATE: 02/25/2018 SUBJECTIVE: The patient has no complaints of any chest pain. No shortness of breath. No headaches or dizziness. PHYSICAL EXAMINATION: VITAL SIGNS: Temperature is 98, pulse of 96, blood pressure is 114/74, respirations 20. GENERAL: The patient is lying in bed, flat, comfortable. HEENT: No oral lesion. Anicteric sclerae. Moist mucosa. NECK: No JVD, adenopathy, or thyromegaly. CARDIOVASCULAR: S1 and S2, regular. No murmurs, rubs, or gallops. LUNGS: Clear to auscultation bilaterally. No wheeze, rales, or rhonchi. ABDOMEN: Bowel sounds are positive, soft, nontender and nondistended. EXTREMITIES: No cyanosis, clubbing or edema. LABORATORY DATA: Hemoglobin is 10.7. ASSESSMENT: 1. Discitis of L3-L4. 2. Chronic back pain secondary to degenerative joint disease. 3. Urinary tract infection secondary to Staphylococcus aureus. 4. Anxiety disorder. 5. Insomnia. PLAN: The patient is currently comfortable. She is ambulating better with physical therapy and is able to work further. She is on meropenem for antibiotics. She is on fentanyl patch for her pain. She is also on Dilaudid for her pain and her pain is controlled. The patient is on Colace for constipation. She is on daptomycin for antibiotics. She is on Seroquel for her anxiety. She is on Zofran as needed. She is on a regular diet. The patient is waiting for subacute rehab, but because of the daptomycin, it is difficult to find a facility that will accept the patient. The patient is walking better. She was able to walk around the unit more than once. Donn Dao MD
[2018-02-25] MEDS: Enoxaparin 40 mg Syringe SC SCH (10:31)
--- NOTE | 2018-02-25 14:46 | CP.PCM.PN ---
Subjective - Date & Time of Evaluation Date of Evaluation: 02/25/18 Time of Evaluation: 12:40 - Subjective Subjective: No fevers, not in distress, still with back pain and left leg still is weak. Objective - Vital Signs/Intake and Output Vital Signs (last 24 hours): Temp Pulse Resp BP Pulse Ox 98 F 77 18 122/80 97 02/24/18 06:00 02/24/18 06:00 02/24/18 06:00 02/24/18 06:00 02/24/18 06:00 - Medications Medications: Current Medications Acetaminophen (Tylenol 325mg Tab) 650 mg PO Q4 PRN PRN Reason: Pain, Mild (1-3) Buspirone HCl (Buspar) 15 mg PO TID [facility] Last Admin: 02/24/18 09:57 Dose: 15 mg Clonazepam (Klonopin) 0.5 mg PO BID [facility]; Protocol Last Admin: 02/24/18 09:58 Dose: 0.5 mg Docusate Sodium (Colace) 100 mg PO BID [facility] Last Admin: 02/24/18 09:57 Dose: 100 mg Enoxaparin Sodium (Lovenox) 40 mg SC DAILY [facility]; Protocol Last Admin: 02/24/18 09:58 Dose: 40 mg Fentanyl (Duragesic) 1 patch TD Q72 [facility] Last Admin: 02/22/18 09:07 Dose: 1 patch Hydromorphone HCl (Dilaudid) 2 mg PO Q4 PRN PRN Reason: Pain, severe (8-10) Last Admin: 02/24/18 11:52 Dose: 2 mg Meropenem (Merrem Iv 1 Gm Premix) 1 gm in 50 mls @ 100 mls/hr IVPB Q8 [facility]; Protocol Stop: 02/25/18 14:32 Last Admin: 02/24/18 05:32 Dose: 100 mls/hr Daptomycin 400 mg/ Sodium (Chloride) 100 mls @ 200 mls/hr IV Q24H [facility]; Protocol Stop: 02/28/18 10:29 Last Admin: 02/24/18 11:45 Dose: 200 mls/hr Mirtazapine (Remeron) 30 mg PO HS [facility] Last Admin: 02/23/18 21:59 Dose: 30 mg Ondansetron HCl (Zofran Inj) 4 mg IVP Q6H PRN PRN Reason: Nausea/Vomiting Paroxetine HCl (Paxil) 40 mg PO DAILY [facility] Last Admin: 02/24/18 09:58 Dose: 40 mg Pregabalin (Lyrica) 50 mg PO BID [facility] Last Admin: 02/24/18 09:58 Dose: 50 mg Quetiapine Fumarate (Seroquel Xr) 300 mg PO HS [facility]; Protocol Last Admin: 02/23/18 22:00 Dose: 300 mg - Labs Labs: 02/23/18 07:00 02/23/18 07:00 - Constitutional Appears: Non-toxic, Chronically Ill - Head Exam Head Exam: NORMAL INSPECTION - Respiratory Exam Respiratory Exam: Decreased Breath Sounds - Cardiovascular Exam Cardiovascular Exam: +S1, +S2 - GI/Abdominal Exam GI & Abdominal Exam: Soft. absent: Tenderness Assessment and Plan - Assessment and Plan (Free Text) Plan: Assessment possible L4-L5 discitis / vertebral osteomyelitis history of UTI with Staph aureus sciatica bipolar disorder depression Plan continue Daptomycin and Merrem (unable to achieve therapeutic Vanco levels) and will need at least 6 weeks of antibiotics, if not more Will also need weekly ESR, CRP, CBC, CMP, CPK while on the antibiotics
[2018-02-25] MEDS: QUEtiapine 300 mg XR Tab PO SCH (21:36)
[2018-02-25] MEDS ORDERED: Meropenem IV 1 gm in NS 1 GM/50 ML BAG IVPB SCH (22:00)
[2018-02-26] MEDS: Meropenem IV 1 gm in NS 1 GM/50 ML BAG IVPB SCH ×3 (05:38→22:31)
[2018-02-26] MEDS: Enoxaparin 40 mg Syringe SC SCH (10:47)
--- NOTE | 2018-02-26 16:25 | PN ---
DATE: 02/26/2018 SUBJECTIVE: The patient has no complaints of any chest pain or shortness of breath. No headaches. PHYSICAL EXAMINATION: VITAL SIGNS: Temperature is 97.8, pulse is 77, blood pressure is 99/59, respirations 20. GENERAL: The patient is lying in bed, flat, comfortable. HEENT: No oral lesion. Anicteric sclerae. Moist mucosa. NECK: No JVD, adenopathy, or thyromegaly. CARDIOVASCULAR: S1 and S2, regular. No murmurs, rubs, or gallops. LUNGS: Clear to auscultation bilaterally. No wheeze, rales, or rhonchi. ABDOMEN: Bowel sounds are positive, soft, nontender and nondistended. EXTREMITIES: No cyanosis, clubbing or edema. ASSESSMENT: 1. Diskitis at L3-L4. 2. Chronic back pain secondary to degenerative joint disease. 3. Urinary tract infection secondary to Staphylococcus aureus, resolved. 4. Anxiety disorder, stable. 5. Insomnia. PLAN: The patient is currently comfortable. She is getting Colace for constipation. She is on BuSpar for her anxiety. She is going to continue with Dilaudid for pain. She is also on a fentanyl patch. The patient is on Lyrica for her neuropathy. She is on Paxil for her anxiety. She is getting physical therapy. She is on a regular diet. She is waiting for subacute rehab. Donn Dao MD
[2018-02-26] MEDS: QUEtiapine 300 mg XR Tab PO SCH (22:33)
[2018-02-27] MEDS: Meropenem IV 1 gm in NS 1 GM/50 ML BAG IVPB SCH ×3 (05:09→21:31)
[2018-02-27] MEDS: Enoxaparin 40 mg Syringe SC SCH (09:09)
--- NOTE | 2018-02-27 10:22 | CP.PCM.PN ---
<Rodolfo Mccarthy - Last Filed: 02/27/18 10:22> Subjective - Date & Time of Evaluation Date of Evaluation: 02/27/18 Time of Evaluation: 07:19 - Subjective Subjective: Rodolfo Mccarthy DO, PGY-2: Progress Note for Dr. Dao Patient was seen and examined at bedside. Patient reports no fever, chills, nausea, or vomiting. Patient requested if she could be discharged home with PT service and a walker. No adverse events noted overnight. Objective - Vital Signs/Intake and Output Vital Signs (last 24 hours): Temp Pulse Resp BP Pulse Ox 97.9 F 18 L 95 H 101/59 L 95 02/27/18 06:00 02/27/18 06:00 02/27/18 06:00 02/27/18 06:00 02/26/18 22:00 Intake and Output: 02/27/18 02/27/18 06:59 18:59 Intake Total 820 Balance 820 - Medications Medications: Current Medications Acetaminophen (Tylenol 325mg Tab) 650 mg PO Q4 PRN PRN Reason: Pain, Mild (1-3) Buspirone HCl (Buspar) 15 mg PO TID [facility] Last Admin: 02/27/18 09:08 Dose: 15 mg Clonazepam (Klonopin) 0.5 mg PO BID [facility]; Protocol Last Admin: 02/27/18 09:08 Dose: 0.5 mg Docusate Sodium (Colace) 100 mg PO BID [facility] Last Admin: 02/27/18 09:09 Dose: 100 mg Enoxaparin Sodium (Lovenox) 40 mg SC DAILY [facility]; Protocol Last Admin: 02/27/18 09:09 Dose: 40 mg Fentanyl (Duragesic) 1 patch TD Q72 [facility] Last Admin: 02/25/18 10:30 Dose: 1 patch Hydromorphone HCl (Dilaudid) 2 mg PO Q4 PRN PRN Reason: Pain, severe (8-10) Last Admin: 02/27/18 04:16 Dose: 2 mg Daptomycin 400 mg/ Sodium (Chloride) 100 mls @ 200 mls/hr IV Q24H [facility]; Protocol Stop: 04/07/18 10:01 Last Admin: 02/26/18 10:46 Dose: 200 mls/hr Meropenem (Merrem Iv 1 Gm Premix) 1 gm in 50 mls @ 100 mls/hr IVPB Q8 [facility]; Protocol Stop: 03/17/18 22:00 Last Admin: 02/27/18 05:09 Dose: 100 mls/hr Mirtazapine (Remeron) 30 mg PO HS [facility] Last Admin: 02/26/18 22:32 Dose: 30 mg Ondansetron HCl (Zofran Inj) 4 mg IVP Q6H PRN PRN Reason: Nausea/Vomiting Paroxetine HCl (Paxil) 40 mg PO DAILY [facility] Last Admin: 02/27/18 09:09 Dose: 40 mg Pregabalin (Lyrica) 50 mg PO BID [facility] Last Admin: 02/27/18 09:09 Dose: 50 mg Quetiapine Fumarate (Seroquel Xr) 300 mg PO HS [facility]; Protocol Last Admin: 02/26/18 22:33 Dose: 300 mg - Labs Labs: 02/23/18 07:00 02/23/18 07:00 - Constitutional Appears: Well, Non-toxic - Head Exam Head Exam: ATRAUMATIC, NORMOCEPHALIC - Eye Exam Eye Exam: EOMI, Normal appearance - ENT Exam ENT Exam: Mucous Membranes Moist - Neck Exam Neck Exam: Normal Inspection - Respiratory Exam Respiratory Exam: Clear to Ausculation Bilateral, NORMAL BREATHING PATTERN. absent: Accessory Muscle Use - Cardiovascular Exam Cardiovascular Exam: RRR, +S1, +S2 - GI/Abdominal Exam GI & Abdominal Exam: Soft, Normal Bowel Sounds - Extremities Exam Extremities Exam: Normal Inspection. absent: Calf Tenderness - Back Exam Back Exam: NORMAL INSPECTION. absent: CVA tenderness (L), CVA tenderness (R) - Neurological Exam Neurological Exam: Alert, Awake, Oriented x3 - Psychiatric Exam Psychiatric exam: Normal Affect, Normal Mood - Skin Skin Exam: Dry, Intact, Normal Color, Warm Assessment and Plan - Assessment and Plan (Free Text) Assessment: 57 year old female with a past medical history of sciatica, affective disorder, and falls who presents with inability to move left leg and MRI of lumbar spine shows findings suspicious for diskitis osteomyelitis. Neurosurgery, neurology, interventional radiology and ID are following. She is Daptomycin and Merropenem. Patient will need at the least 6 weeks of antibiotics per Infectious Recommendations. Physical therapy recommends either acute or subacute rehabilitation given her difficulty with ambulation. moving worker is working diligently to find acceptable placement for the patient. Plan: 1) Left leg weakness: Diskitis Osteomyelitis - Daptomycin and Merropenem - Biopsy thus far negative - Infectious disease recommends antibiotics for at least 6 weeks with weekly ESR, CRP, CBC, and CMP. - Physical therapy recommends acute rehabilitation or [facility] 2) UTI - Continue antibiotics per Infectious Disease 3) Anxiety disorder - Clonazepam 0.5 mg BID - Paroxetine 40 mg PO HS 4) Chronic nerve pain - Hydromorphone 2 mg q4h PO PRN - Duralgesic 1 patch q72 5) Insomnia - Seroquel 300 mg HS - Clonazepam 0.5 mg BID 6) DVT/GI prophylaxis - Lovenox 40 mg SC daily Case was reviewed and discussed with attending physician, Dr. Dao <Donn Dao - Last Filed: 02/27/18 20:38> Objective - Vital Signs/Intake and Output Vital Signs (last 24 hours): Temp Pulse Resp BP Pulse Ox 97.9 F 18 L 95 H 101/59 L 95 02/27/18 06:00 02/27/18 06:00 02/27/18 06:00 02/27/18 06:00 02/26/18 22:00 - Medications Medications: Current Medications Acetaminophen (Tylenol 325mg Tab) 650 mg PO Q4 PRN PRN Reason: Pain, Mild (1-3) Buspirone HCl (Buspar) 15 mg PO TID [facility] Last Admin: 02/27/18 17:42 Dose: 15 mg Clonazepam (Klonopin) 0.5 mg PO BID [facility]; Protocol Last Admin: 02/27/18 17:47 Dose: 0.5 mg Docusate Sodium (Colace) 100 mg PO BID [facility] Last Admin: 02/27/18 17:47 Dose: 100 mg Enoxaparin Sodium (Lovenox) 40 mg SC DAILY [facility]; Protocol Last Admin: 02/27/18 09:09 Dose: 40 mg Fentanyl (Duragesic) 1 patch TD Q72 [facility] Last Admin: 02/25/18 10:30 Dose: 1 patch Hydromorphone HCl (Dilaudid) 2 mg PO Q4 PRN PRN Reason: Pain, severe (8-10) Last Admin: 02/27/18 17:49 Dose: 2 mg Daptomycin 400 mg/ Sodium (Chloride) 100 mls @ 200 mls/hr IV Q24H [facility]; Protocol Stop: 04/07/18 10:01 Last Admin: 02/27/18 11:12 Dose: 200 mls/hr Meropenem (Merrem Iv 1 Gm Premix) 1 gm in 50 mls @ 100 mls/hr IVPB Q8 [facility]; Protocol Stop: 03/17/18 22:00 Last Admin: 02/27/18 13:48 Dose: 100 mls/hr Mirtazapine (Remeron) 30 mg PO HS [facility] Last Admin: 02/26/18 22:32 Dose: 30 mg Ondansetron HCl (Zofran Inj) 4 mg IVP Q6H PRN PRN Reason: Nausea/Vomiting Paroxetine HCl (Paxil) 40 mg PO DAILY [facility] Last Admin: 02/27/18 09:09 Dose: 40 mg Pregabalin (Lyrica) 50 mg PO BID [facility] Last Admin: 02/27/18 17:47 Dose: 50 mg Quetiapine Fumarate (Seroquel Xr) 300 mg PO HS [facility]; Protocol Last Admin: 02/26/18 22:33 Dose: 300 mg - Labs Labs: 02/23/18 07:00 02/23/18 07:00 Assessment and Plan - Assessment and Plan (Free Text) Assessment: Pt seen and examined. I have reviewed the note of the medical sales consultant and agree with it. I have discussed the assessment and plan with the resident. I have reviewed the patient's labs and medications. Pt with discitis. She is on Dapto and will need to continue. She needs 6 weeks of Abx. She is walking better. Pain is controlled.
--- NOTE | 2018-02-27 17:02 | CP.PCM.PN ---
Subjective - Date & Time of Evaluation Date of Evaluation: 02/26/18 Time of Evaluation: 10:50 - Subjective Subjective: No fevers, not in distress, no increase in back pain, still feels her left leg is weak. Objective - Vital Signs/Intake and Output Vital Signs (last 24 hours): Temp Pulse Resp BP Pulse Ox 98.0 F 96 H 20 114/74 97 02/25/18 06:00 02/25/18 06:00 02/25/18 06:00 02/25/18 06:00 02/25/18 06:00 - Medications Medications: Current Medications Acetaminophen (Tylenol 325mg Tab) 650 mg PO Q4 PRN PRN Reason: Pain, Mild (1-3) Buspirone HCl (Buspar) 15 mg PO TID [facility] Last Admin: 02/25/18 13:40 Dose: 15 mg Clonazepam (Klonopin) 0.5 mg PO BID [facility]; Protocol Last Admin: 02/25/18 10:30 Dose: 0.5 mg Docusate Sodium (Colace) 100 mg PO BID [facility] Last Admin: 02/25/18 10:29 Dose: 100 mg Enoxaparin Sodium (Lovenox) 40 mg SC DAILY [facility]; Protocol Last Admin: 02/25/18 10:31 Dose: 40 mg Fentanyl (Duragesic) 1 patch TD Q72 [facility] Last Admin: 02/25/18 10:30 Dose: 1 patch Hydromorphone HCl (Dilaudid) 2 mg PO Q4 PRN PRN Reason: Pain, severe (8-10) Last Admin: 02/25/18 12:07 Dose: 2 mg Daptomycin 400 mg/ Sodium (Chloride) 100 mls @ 200 mls/hr IV Q24H [facility]; Protocol Stop: 04/07/18 10:01 Last Admin: 02/25/18 10:29 Dose: 200 mls/hr Mirtazapine (Remeron) 30 mg PO HS [facility] Last Admin: 02/24/18 22:33 Dose: 30 mg Ondansetron HCl (Zofran Inj) 4 mg IVP Q6H PRN PRN Reason: Nausea/Vomiting Paroxetine HCl (Paxil) 40 mg PO DAILY [facility] Last Admin: 02/25/18 10:31 Dose: 40 mg Pregabalin (Lyrica) 50 mg PO BID [facility] Last Admin: 02/25/18 10:31 Dose: 50 mg Quetiapine Fumarate (Seroquel Xr) 300 mg PO HS [facility]; Protocol Last Admin: 02/24/18 22:32 Dose: 300 mg - Labs Labs: 02/23/18 07:00 02/23/18 07:00 - Constitutional Appears: Chronically Ill - Head Exam Head Exam: NORMAL INSPECTION - Respiratory Exam Respiratory Exam: Decreased Breath Sounds - Cardiovascular Exam Cardiovascular Exam: +S1, +S2 - GI/Abdominal Exam GI & Abdominal Exam: Soft. absent: Tenderness Assessment and Plan - Assessment and Plan (Free Text) Plan: Assessment possible L4-L5 discitis / vertebral osteomyelitis history of UTI with Staph aureus sciatica bipolar disorder depression Plan continue Daptomycin and Merrem (unable to achieve therapeutic Vanco levels) and will need at least 6 weeks of antibiotics, if not more Will also need weekly ESR, CRP, CBC, CMP, CPK while on the antibiotics
[2018-02-27] MEDS: QUEtiapine 300 mg XR Tab PO SCH (21:32)
[2018-02-28] MEDS: Meropenem IV 1 gm in NS 1 GM/50 ML BAG IVPB SCH ×3 (05:14→21:35)
--- NOTE | 2018-02-28 07:14 | CP.PCM.PN ---
<Mery Landaverde - Last Filed: 02/28/18 11:09> Subjective - Date & Time of Evaluation Date of Evaluation: 02/28/18 Time of Evaluation: 07:00 - Subjective Subjective: Infectious Disease Progress Note for Tom Burgos PGY3 Patient seen and examined at bedside. Comfortable in bed without complaints. She remains afebrile. Objective - Vital Signs/Intake and Output Vital Signs (last 24 hours): Temp Pulse Resp BP Pulse Ox 98.3 F 106 H 18 111/77 94 L 02/27/18 21:34 02/27/18 21:34 02/27/18 21:34 02/27/18 21:34 02/27/18 21:34 - Medications Medications: Current Medications Acetaminophen (Tylenol 325mg Tab) 650 mg PO Q4 PRN PRN Reason: Pain, Mild (1-3) Buspirone HCl (Buspar) 15 mg PO TID [facility] Last Admin: 02/27/18 17:42 Dose: 15 mg Clonazepam (Klonopin) 0.5 mg PO BID [facility]; Protocol Last Admin: 02/27/18 17:47 Dose: 0.5 mg Docusate Sodium (Colace) 100 mg PO BID [facility] Last Admin: 02/27/18 17:47 Dose: 100 mg Enoxaparin Sodium (Lovenox) 40 mg SC DAILY [facility]; Protocol Last Admin: 02/27/18 09:09 Dose: 40 mg Fentanyl (Duragesic) 1 patch TD Q72 [facility] Last Admin: 02/25/18 10:30 Dose: 1 patch Hydromorphone HCl (Dilaudid) 2 mg PO Q4 PRN PRN Reason: Pain, severe (8-10) Last Admin: 02/28/18 03:28 Dose: 2 mg Daptomycin 400 mg/ Sodium (Chloride) 100 mls @ 200 mls/hr IV Q24H [facility]; Protocol Stop: 04/07/18 10:01 Last Admin: 02/27/18 11:12 Dose: 200 mls/hr Meropenem (Merrem Iv 1 Gm Premix) 1 gm in 50 mls @ 100 mls/hr IVPB Q8 [facility]; Protocol Stop: 03/17/18 22:00 Last Admin: 02/28/18 05:14 Dose: 100 mls/hr Mirtazapine (Remeron) 30 mg PO [facility] Last Admin: 02/27/18 21:32 Dose: 30 mg Ondansetron HCl (Zofran Inj) 4 mg IVP Q6H PRN PRN Reason: Nausea/Vomiting Paroxetine HCl (Paxil) 40 mg PO DAILY [facility] [place] Last Admin: 02/27/18 09:09 Dose: 40 mg Pregabalin (Lyrica) 50 mg PO BID [facility] Last Admin: 02/27/18 17:47 Dose: 50 mg Quetiapine Fumarate (Seroquel Xr) 300 mg PO [facility]; Protocol Last Admin: 02/27/18 21:32 Dose: 300 mg - Labs Labs: 02/23/18 07:00 02/23/18 07:00 - Constitutional Appears: No Acute Distress - Head Exam Head Exam: ATRAUMATIC, NORMAL INSPECTION, NORMOCEPHALIC - Eye Exam Eye Exam: Normal appearance, PERRL Pupil Exam: NORMAL ACCOMODATION, PERRL - ENT Exam ENT Exam: Mucous Membranes Moist - Respiratory Exam Respiratory Exam: Clear to Ausculation Bilateral, NORMAL BREATHING PATTERN. absent: Rales, Rhonchi, Wheezes - Cardiovascular Exam Cardiovascular Exam: REGULAR RHYTHM, +S2. absent: Gallop, Rubs, Murmur - GI/Abdominal Exam GI & Abdominal Exam: Soft, Normal Bowel Sounds. absent: Rigid, Tenderness, Mass, Rebound - Extremities Exam Extremities Exam: Normal Inspection. absent: Calf Tenderness, Pedal Edema - Neurological Exam Neurological Exam: Alert, Awake, CN II-XII Intact - Psychiatric Exam Psychiatric exam: Normal Affect, Normal Mood - Skin Skin Exam: Dry, Warm Assessment and Plan - Assessment and Plan (Free Text) Assessment: 1. 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 UTI - urine culture positive for staph aureus 3. Sciatica 4. Bipolar 5. Depression Plan: Continue Merrem day #13. Continue Daptomycin day #5. Patient will need at least 6 weeks of IV antibiotics. She will need weekly CRP, ESR, CBC, CMP upon d/c. Wi ll continue to clinically. Case seen, discussed and reviewed with Dr. Vickie Landaverde PGY3 <Delvis Johnston - Last Filed: 02/28/18 19:52> Objective - Vital Signs/Intake and Output Vital Signs (last 24 hours): Temp Pulse Resp BP Pulse Ox 98.3 F 88 18 112/61 98 02/28/18 15:41 02/28/18 15:41 02/28/18 15:41 02/28/18 15:41 02/28/18 15:41 - Medications Medications: Current Medications Acetaminophen (Tylenol 325mg Tab) 650 mg PO Q4 PRN PRN Reason: Pain, Mild (1-3) Buspirone HCl (Buspar) 15 mg PO TID [facility] Last Admin: 02/28/18 17:10 Dose: Not Given Clonazepam (Klonopin) 0.5 mg PO BID [facility]; Protocol Last Admin: 02/28/18 17:08 Dose: 0.5 mg Docusate Sodium (Colace) 100 mg PO BID [facility] [place] Last Admin: 02/28/18 17:08 Dose: 100 mg Enoxaparin Sodium (Lovenox) 40 mg SC DAILY [facility]; Protocol Last Admin: 02/28/18 11:01 Dose: 40 mg Fentanyl (Duragesic) 1 patch TD Q72 [facility] Last Admin: 02/28/18 11:46 Dose: 1 patch Hydromorphone HCl (Dilaudid) 2 mg PO Q4 PRN PRN Reason: Pain, severe (8-10) Last Admin: 02/28/18 17:09 Dose: 2 mg Daptomycin 400 mg/ Sodium (Chloride) 100 mls @ 200 mls/hr IV Q24H [facility]; Protocol Stop: 04/07/18 10:01 Last Admin: 02/28/18 14:04 Dose: 200 mls/hr Meropenem (Merrem Iv 1 Gm Premix) 1 gm in 50 mls @ 100 mls/hr IVPB Q8 [facility]; Protocol Stop: 03/17/18 22:00 Last Admin: 02/28/18 14:05 Dose: 100 mls/hr Mirtazapine (Remeron) 30 mg PO HS [facility] Last Admin: 02/27/18 21:32 Dose: 30 mg Ondansetron HCl (Zofran Inj) 4 mg IVP Q6H PRN PRN Reason: Nausea/Vomiting Paroxetine HCl (Paxil) 40 mg PO DAILY [facility] Last Admin: 02/28/18 11:02 Dose: 40 mg Pregabalin (Lyrica) 50 mg PO BID [facility] Last Admin: 02/28/18 17:07 Dose: 50 mg Quetiapine Fumarate (Seroquel Xr) 300 mg PO HS [facility]; Protocol Last Admin: 02/27/18 21:32 Dose: 300 mg - Labs Labs: 02/23/18 07:00 02/23/18 07:00 Assessment and Plan - Assessment and Plan (Free Text) Plan: Infectious Diseases Attending Physician Attestation Patient seen and examined, discussed with medical imaging technologist. I have reviewed the patient's history of present illness, past medical, family and social histories, personal history, physical exam, lab findings and imaging studies. I agree with the above findings, assessment and plan. In addition, will need at least 6 weeks of Daptomycin and Merrem for possible lumbar discitis / vertebral osteomyelitis. Will need ESR, CRP, CBC, CMP, CPK while on antibiotics.
[2018-02-28] MEDS: Enoxaparin 40 mg Syringe SC SCH (11:01)
--- NOTE | 2018-02-28 15:29 | CP.PCM.PN ---
<Rodolfo Mccarthy - Last Filed: 02/28/18 15:31> Subjective - Date & Time of Evaluation Date of Evaluation: 02/28/18 Time of Evaluation: 07:40 - Subjective Subjective: Rodolfo Mccarthy DO, PGY-2: Progress Note for Dr. Dao Patient was seen and examined at bedside. Patient denies any fevers, chills, nausea or vomiting. She is pending placement to a [facility]. Nurse reports no adverse events overnight. Objective - Vital Signs/Intake and Output Vital Signs (last 24 hours): Temp Pulse Resp BP Pulse Ox 98 F 91 H 20 100/60 97 02/28/18 06:00 02/28/18 06:00 02/28/18 06:00 02/28/18 06:00 02/28/18 06:00 - Medications Medications: Current Medications Acetaminophen (Tylenol 325mg Tab) 650 mg PO Q4 PRN PRN Reason: Pain, Mild (1-3) Buspirone HCl (Buspar) 15 mg PO TID [facility] Last Admin: 02/28/18 14:05 Dose: 15 mg Clonazepam (Klonopin) 0.5 mg PO BID [facility]; Protocol Last Admin: 02/28/18 11:46 Dose: 0.5 mg Docusate Sodium (Colace) 100 mg PO BID [facility] Last Admin: 02/28/18 11:00 Dose: 100 mg Enoxaparin Sodium (Lovenox) 40 mg SC DAILY [facility]; Protocol Last Admin: 02/28/18 11:01 Dose: 40 mg Fentanyl (Duragesic) 1 patch TD Q72 [facility] Last Admin: 02/28/18 11:46 Dose: 1 patch Hydromorphone HCl (Dilaudid) 2 mg PO Q4 PRN PRN Reason: Pain, severe (8-10) Last Admin: 02/28/18 11:46 Dose: 2 mg Daptomycin 400 mg/ Sodium (Chloride) 100 mls @ 200 mls/hr IV Q24H [facility]; Protocol Stop: 04/07/18 10:01 Last Admin: 02/28/18 14:04 Dose: 200 mls/hr Meropenem (Merrem Iv 1 Gm Premix) 1 gm in 50 mls @ 100 mls/hr IVPB Q8 [facility]; Protocol Stop: 03/17/18 22:00 Last Admin: 02/28/18 14:05 Dose: 100 mls/hr Mirtazapine (Remeron) 30 mg PO HS [facility] Last Admin: 02/27/18 21:32 Dose: 30 mg Ondansetron HCl (Zofran Inj) 4 mg IVP Q6H PRN PRN Reason: Nausea/Vomiting Paroxetine HCl (Paxil) 40 mg PO DAILY [facility] Last Admin: 02/28/18 11:02 Dose: 40 mg Pregabalin (Lyrica) 50 mg PO BID [facility] Last Admin: 02/28/18 11:02 Dose: 50 mg Quetiapine Fumarate (Seroquel Xr) 300 mg PO HS [facility]; Protocol Last Admin: 02/27/18 21:32 Dose: 300 mg - Labs Labs: 02/23/18 07:00 02/23/18 07:00 - Constitutional Appears: Non-toxic, No Acute Distress - Head Exam Head Exam: ATRAUMATIC, NORMOCEPHALIC - Eye Exam Eye Exam: EOMI, Normal appearance - ENT Exam ENT Exam: Mucous Membranes Moist - Neck Exam Neck Exam: Normal Inspection - Respiratory Exam Respiratory Exam: Clear to Ausculation Bilateral, NORMAL BREATHING PATTERN. absent: Accessory Muscle Use - Cardiovascular Exam Cardiovascular Exam: RRR, +S1, +S2 - GI/Abdominal Exam GI & Abdominal Exam: Soft, Normal Bowel Sounds. absent: Distended, Rebound - Extremities Exam Extremities Exam: Normal Inspection. absent: Calf Tenderness - Back Exam Back Exam: NORMAL INSPECTION. absent: CVA tenderness (L), CVA tenderness (R) - Neurological Exam Neurological Exam: Awake, Oriented x3 - Psychiatric Exam Psychiatric exam: Depressed - Skin Skin Exam: Dry, Intact, Normal Color, Warm Assessment and Plan - Assessment and Plan (Free Text) Assessment: 57 year old female with a past medical history of sciatica, affective disorder, and falls who presents with inability to move left leg and MRI of lumbar spine shows findings suspicious for diskitis osteomyelitis. Neurosurgery, neurology, interventional radiology and ID are following. She is Daptomycin and Merropenem. Patient will need at the least 6 weeks of antibiotics per Infectious Recommendations. Physical therapy recommends either acute or subacute rehabilitation given her difficulty with ambulation. structural ironworker is working diligently to find acceptable placement for the patient. Plan: 1) Left leg weakness: Diskitis Osteomyelitis - Daptomycin day #5 and Merropenem - Biopsy thus far negative - Infectious disease recommends antibiotics for at least 6 weeks with weekly ESR, CRP, CBC, and CMP. - Physical therapy recommends acute rehabilitation or [facility] - structural ironworker is looking for placement 2) UTI - Continue antibiotics per Infectious Disease 3) Anxiety disorder - Clonazepam 0.5 mg BID - Paroxetine 40 mg PO HS - Mirtazapine 15 mg HS - Buspar 15 mg TID 4) Chronic nerve pain - Hydromorphone 2 mg q4h PO PRN - Duralgesic 1 patch q72 - Lyrica 50 mg BID 5) Insomnia - Seroquel 300 mg HS - Clonazepam 0.5 mg BID 6) DVT/GI prophylaxis - Lovenox 40 mg SC daily - Zofran 4 mg q6h PRN for Nausea Case was reviewed and discussed with attending physician, Dr. Dao <Donn Dao - Last Filed: 02/28/18 15:54> Objective - Vital Signs/Intake and Output Vital Signs (last 24 hours): Temp Pulse Resp BP Pulse Ox 98.3 F 88 18 112/61 98 02/28/18 15:41 02/28/18 15:41 02/28/18 15:41 02/28/18 15:41 02/28/18 15:41 - Medications Medications: Current Medications Acetaminophen (Tylenol 325mg Tab) 650 mg PO Q4 PRN PRN Reason: Pain, Mild (1-3) Buspirone HCl (Buspar) 15 mg PO TID [facility] Last Admin: 02/28/18 14:05 Dose: 15 mg Clonazepam (Klonopin) 0.5 mg PO BID [facility]; Protocol Last Admin: 02/28/18 11:46 Dose: 0.5 mg Docusate Sodium (Colace) 100 mg PO BID [facility] Last Admin: 02/28/18 11:00 Dose: 100 mg Enoxaparin Sodium (Lovenox) 40 mg SC DAILY [facility]; Protocol Last Admin: 02/28/18 11:01 Dose: 40 mg Fentanyl (Duragesic) 1 patch TD Q72 [facility] Last Admin: 02/28/18 11:46 Dose: 1 patch Hydromorphone HCl (Dilaudid) 2 mg PO Q4 PRN PRN Reason: Pain, severe (8-10) Last Admin: 02/28/18 11:46 Dose: 2 mg Daptomycin 400 mg/ Sodium (Chloride) 100 mls @ 200 mls/hr IV Q24H [facility]; Protocol Stop: 04/07/18 10:01 Last Admin: 02/28/18 14:04 Dose: 200 mls/hr Meropenem (Merrem Iv 1 Gm Premix) 1 gm in 50 mls @ 100 mls/hr IVPB Q8 [facility]; Protocol Stop: 03/17/18 22:00 Last Admin: 02/28/18 14:05 Dose: 100 mls/hr Mirtazapine (Remeron) 30 mg PO HS [facility] Last Admin: 02/27/18 21:32 Dose: 30 mg Ondansetron HCl (Zofran Inj) 4 mg IVP Q6H PRN PRN Reason: Nausea/Vomiting Paroxetine HCl (Paxil) 40 mg PO DAILY [facility] Last Admin: 02/28/18 11:02 Dose: 40 mg Pregabalin (Lyrica) 50 mg PO BID [facility] Last Admin: 02/28/18 11:02 Dose: 50 mg Quetiapine Fumarate (Seroquel Xr) 300 mg PO HS [facility]; Protocol Last Admin: 02/27/18 21:32 Dose: 300 mg - Labs Labs: 02/23/18 07:00 02/23/18 07:00 Assessment and Plan - Assessment and Plan (Free Text) Assessment: Pt seen and examined. I have reviewed the note of the medical psychotherapist and agree with it. I have discussed the assessment and plan with the resident. I have reviewed the patient's labs and medications. Pt with Discitis. She is on IV Daptomycin and waiting for D/C to [facility]. She is on Paroxetine, BusPar and Clonazepam for her anxiety. Pain is controlled with Dilaudid and Duragesic patch. Pt is able to ambulate with assistance.
[2018-02-28] MEDS: QUEtiapine 300 mg XR Tab PO SCH (21:35)
[2018-03-01] MEDS: Meropenem IV 1 gm in NS 1 GM/50 ML BAG IVPB SCH ×2 (05:28→13:29)
--- NOTE | 2018-03-01 07:04 | CP.PCM.PN ---
<Mery Landaverde - Last Filed: 03/01/18 10:27> Subjective - Date & Time of Evaluation Date of Evaluation: 03/01/18 Time of Evaluation: 07:00 - Subjective Subjective: Infectious Disease Progress Note for Tom Burgos PGY3 Patient seen and examined at bedside. Patient is afebrile and resting comfortably in bed. She did not have any complaints at this time. Objective - Vital Signs/Intake and Output Vital Signs (last 24 hours): Temp Pulse Resp BP Pulse Ox 98.6 F 85 20 112/81 94 L 02/28/18 22:26 02/28/18 22:26 02/28/18 22:26 02/28/18 22:26 02/28/18 22:26 - Medications Medications: Current Medications Acetaminophen (Tylenol 325mg Tab) 650 mg PO Q4 PRN PRN Reason: Pain, Mild (1-3) Buspirone HCl (Buspar) 15 mg PO TID [facility] Last Admin: 02/28/18 17:10 Dose: Not Given Clonazepam (Klonopin) 0.5 mg PO BID [facility]; Protocol Last Admin: 02/28/18 17:08 Dose: 0.5 mg Docusate Sodium (Colace) 100 mg PO BID [facility] Last Admin: 02/28/18 17:08 Dose: 100 mg Enoxaparin Sodium (Lovenox) 40 mg SC DAILY [facility]; Protocol Last Admin: 02/28/18 11:01 Dose: 40 mg Fentanyl (Duragesic) 1 patch TD Q72 [facility] Last Admin: 02/28/18 11:46 Dose: 1 patch Hydromorphone HCl (Dilaudid) 2 mg PO Q4 PRN PRN Reason: Pain, severe (8-10) Last Admin: 03/01/18 03:14 Dose: 2 mg Daptomycin 400 mg/ Sodium (Chloride) 100 mls @ 200 mls/hr IV Q24H [facility]; Protocol Stop: 04/07/18 10:01 Last Admin: 02/28/18 14:04 Dose: 200 mls/hr Meropenem (Merrem Iv 1 Gm Premix) 1 gm in 50 mls @ 100 mls/hr IVPB Q8 [facility]; Protocol Stop: 03/17/18 22:00 Last Admin: 11/14/18 05:28 Dose: 100 mls/hr Mirtazapine (Remeron) 30 mg PO HS [facility] Last Admin: 02/28/18 21:35 Dose: 30 mg Ondansetron HCl (Zofran Inj) 4 mg IVP Q6H PRN PRN Reason: Nausea/Vomiting Paroxetine HCl (Paxil) 40 mg PO DAILY [facility] Last Admin: 02/28/18 11:02 Dose: 40 mg Pregabalin (Lyrica) 50 mg PO BID [facility] Last Admin: 02/28/18 17:07 Dose: 50 mg Quetiapine Fumarate (Seroquel Xr) 300 mg PO HS [facility]; Protocol Last Admin: 02/28/18 21:35 Dose: 300 mg - Labs Labs: 02/23/18 07:00 02/23/18 07:00 - Constitutional Appears: No Acute Distress - Head Exam Head Exam: ATRAUMATIC, NORMAL INSPECTION, NORMOCEPHALIC - Eye Exam Eye Exam: Normal appearance, PERRL Pupil Exam: NORMAL ACCOMODATION, PERRL - ENT Exam ENT Exam: Mucous Membranes Moist - Respiratory Exam Respiratory Exam: Clear to Ausculation Bilateral, NORMAL BREATHING PATTERN. absent: Rales, Rhonchi, Wheezes - Cardiovascular Exam Cardiovascular Exam: REGULAR RHYTHM, +S1, +S2. absent: Gallop, Rubs, Murmur - GI/Abdominal Exam GI & Abdominal Exam: Soft, Normal Bowel Sounds. absent: Rigid, Tenderness, Mass, Rebound - Extremities Exam Extremities Exam: absent: Calf Tenderness, Pedal Edema - Neurological Exam Neurological Exam: Alert, Awake, CN II-XII Intact - Psychiatric Exam Psychiatric exam: Normal Affect, Normal Mood - Skin Skin Exam: Dry, Warm Assessment and Plan - Assessment and Plan (Free Text) Assessment: 1. Sepsis secondary to Diskitis of L3/L4 2. UTI - urine culture positive for staph aureus 3. Sciatica 4. Bipolar 5. Depression Plan: Continue Merrem day #14 and Daptomycin day #6. Patient will need at least 6 weeks of IV antibiotics. She cannot be switched to ertapenem because we cannot rule out pseudomonas. She will need weekly CRP, ESR, CK, CBC, CMP upon d/c. Wrote scripts for weekly labs and antibiotics. Will continue to monitor clinically. Case seen, discussed and reviewed with Dr. Vickie Landaverde PGY3 <Delvis Johnston S - Last Filed: 03/01/18 12:41> Objective - Vital Signs/Intake and Output Vital Signs (last 24 hours): Temp Pulse Resp BP Pulse Ox 97.7 F 80 18 100/68 96 03/01/18 06:00 03/01/18 06:00 03/01/18 06:00 03/01/18 09:48 03/01/18 06:00 - Medications Medications: Current Medications Acetaminophen (Tylenol 325mg Tab) 650 mg PO Q4 PRN PRN Reason: Pain, Mild (1-3) Buspirone HCl (Buspar) 15 mg PO TID [facility] Last Admin: 03/01/18 09:52 Dose: 15 mg Clonazepam (Klonopin) 0.5 mg PO BID [facility]; Protocol Last Admin: 03/01/18 09:53 Dose: 0.5 mg Docusate Sodium (Colace) 100 mg PO BID [facility] Last Admin: 03/01/18 09:53 Dose: 100 mg Enoxaparin Sodium (Lovenox) 40 mg SC DAILY [facility]; Protocol Last Admin: 03/01/18 09:53 Dose: 40 mg Fentanyl (Duragesic) 1 patch TD Q72 [facility] Last Admin: 02/28/18 11:46 Dose: 1 patch Daptomycin 400 mg/ Sodium (Chloride) 100 mls @ 200 mls/hr IV Q24H [facility]; Protocol Stop: 04/07/18 10:01 Last Admin: 03/01/18 10:57 Dose: 200 mls/hr Meropenem (Merrem Iv 1 Gm Premix) 1 gm in 50 mls @ 100 mls/hr IVPB Q8 [facility]; Protocol Stop: 03/17/18 22:00 Last Admin: 03/01/18 05:28 Dose: 100 mls/hr Mirtazapine (Remeron) 30 mg PO HS [facility] Last Admin: 02/28/18 21:35 Dose: 30 mg Ondansetron HCl (Zofran Inj) 4 mg IVP Q6H PRN PRN Reason: Nausea/Vomiting Paroxetine HCl (Paxil) 40 mg PO DAILY [facility] Last Admin: 03/01/18 09:53 Dose: 40 mg Pregabalin (Lyrica) 50 mg PO BID [facility] Last Admin: 03/01/18 09:53 Dose: 50 mg Quetiapine Fumarate (Seroquel Xr) 300 mg PO HS [facility]; Protocol Last Admin: 02/28/18 21:35 Dose: 300 mg - Labs Labs: 02/23/18 07:00 02/23/18 07:00 Assessment and Plan - Assessment and Plan (Free Text) Plan: Infectious Diseases Attending Physician Attestation Patient seen and examined, discussed with medical payment poster. I have reviewed the patient's history of present illness, past medical, family and social histories, personal history, physical exam, lab findings and imaging studies. I agree with the above findings, assessment and plan. In addition, will need at least 6 weeks of Daptomycin and Merrem (has had about a week of this specific combination therapy already during this admission) for possible lumbar discitis / vertebral osteomyelitis. Will need ESR, CRP, CBC, CMP, CPK while on antibiotics. Patient will need to follow up with her PMD as outpatient to be monitored.
[2018-03-01 07:50] VITALS: RESP 18
[2018-03-01] MEDS: Enoxaparin 40 mg Syringe SC SCH (09:53)
--- NOTE | 2018-03-01 11:48 | CP.PCM.DIS ---
<Rodolfo Mccarthy - Last Filed: 03/01/18 11:33> Provider - Provider Date of Admission: 02/15/18 21:31 Attending physician: Donn Dao MD Consults: Dr. Johnston/Christopher Aguilar Time Spent in preparation of Discharge (in minutes): 45 Hospital Course - Lab Results Lab Results: Micro Results 02/20/18 10:40 Other: Please Indicate Fungal Culture - Preliminary NO FUNGUS GROWTH IN 1 WEEK. 02/20/18 10:40 Other: Please Indicate Mycobacterial Culture - Preliminary 02/20/18 10:40 Other: Please Indicate Gram Stain - Final 02/20/18 10:40 Other: Please Indicate Body Fluid Culture - Final No growth. 02/20/18 10:40 Other: Please Indicate Anaerobic Culture - Final NO ANAEROBES ISOLATED. 02/15/18 21:00 Blood Blood Culture - Final NO GROWTH AFTER 5 DAYS 02/15/18 21:00 Blood Gram Stain - Final TEST NOT PERFORMED 02/15/18 21:25 Blood Blood Culture - Final NO GROWTH AFTER 5 DAYS 02/15/18 21:25 Blood Gram Stain - Final TEST NOT PERFORMED 02/15/18 18:15 Urine,Clean Catch Urine Culture - Final Staphylococcus Aureus Most Recent Lab Values WBC 9.8 10^3/uL (4.5-11.0) D 02/23/18 07:00 RBC 3.59 10^6/uL (3.5-6.1) 02/23/18 07:00 Hgb 10.7 g/dL (12.0-16.0) L 02/23/18 07:00 Hct 33.0 % (36.0-48.0) L 02/23/18 07:00 MCV 91.9 fl (80.0-105.0) 02/23/18 07:00 MCH 29.8 pg (25.0-35.0) 02/23/18 07:00 MCHC 32.4 g/dl (31.0-37.0) 02/23/18 07:00 RDW 14.3 % (11.5-14.5) 02/23/18 07:00 Plt Count 384 10^3/uL (120.0-450.0) 02/23/18 07:00 MPV 9.0 fl (7.0-11.0) 02/23/18 07:00 Gran % 56.4 % (50.0-68.0) 02/23/18 07:00 Lymph % (Auto) 28.2 % (22.0-35.0) 02/23/18 07:00 [place] % (Auto) 12.0 % (1.0-6.0) H 02/23/18 07:00 Eos % (Auto) 3.0 % (1.5-5.0) 02/23/18 07:00 Baso % (Auto) 0.4 % (0.0-3.0) 02/23/18 07:00 Gran # 5.51 (1.4-6.5) 02/23/18 07:00 Lymph # (Auto) 2.8 (1.2-3.4) 02/23/18 07:00 [place] # (Auto) 1.2 (0.1-0.6) H 02/23/18 07:00 Eos # (Auto) 0.3 (0.0-0.7) 02/23/18 07:00 Baso # (Auto) 0.04 K/mm3 (0.0-2.0) 02/23/18 07:00 ESR 52 mm/hr (0.0-20.0) H 02/23/18 07:00 Sodium 139 mmol/L (132-148) 02/23/18 07:00 Potassium 3.7 mmol/L (3.6-5.0) 02/23/18 07:00 Chloride 106 mmol/L (98-107) 02/23/18 07:00 Carbon Dioxide 29 mmol/L (21-33) 02/23/18 07:00 Anion Gap 8 (10-20) L 02/23/18 07:00 BUN 13 mg/dL (7-21) 02/23/18 07:00 Creatinine 0.7 mg/dl (0.7-1.2) 02/23/18 07:00 Est GFR ( Amer) > 60 02/23/18 07:00 Est GFR (Non-Af Amer) > 60 02/23/18 07:00 Random Glucose 91 mg/dL (70-110) 02/23/18 07:00 Calcium 8.1 mg/dL (8.4-10.5) L 02/23/18 07:00 Magnesium 2.1 mg/dL (1.7-2.2) 02/23/18 07:00 Total Bilirubin 0.3 mg/dL (0.2-1.3) 02/23/18 07:00 AST 32 U/L (14-36) 02/23/18 07:00 ALT 42 U/L (7-56) 02/23/18 07:00 Alkaline Phosphatase 74 U/L (38-126) 02/23/18 07:00 Total Creatine Kinase 46 U/L (35-230) 02/25/18 12:00 C-Reactive Protein 38.20 mg/L (0.0-9.9) H 02/23/18 07:00 Total Protein 5.5 g/dL (5.8-8.3) L 02/23/18 07:00 Albumin 2.7 g/dL (3.0-4.8) L 02/23/18 07:00 Globulin 2.8 gm/dL 02/23/18 07:00 Albumin/Globulin Ratio 0.9 (1.1-1.8) L 02/23/18 07:00 Urine Color Yellow (YELLOW) 02/15/18 18:15 Urine Appearance Sl cloudy (CLEAR) 02/15/18 18:15 Urine pH 6.0 (4.7-8.0) 02/15/18 18:15 Ur Specific [place] >= 1.030 (1.005-1.035) 02/15/18 18:15 Urine Protein 30 mg/dL (<30 mg/dL) H 02/15/18 18:15 Urine Glucose (UA) Negative mg/dL (NEGATIVE) 02/15/18 18:15 Urine Ketones 40 mg/dL (NEGATIVE) H 02/15/18 18:15 Urine Blood Large (NEGATIVE) H 02/15/18 18:15 Urine Nitrate Negative (NEGATIVE) 02/15/18 18:15 Urine Bilirubin Moderate (NEGATIVE) H 02/15/18 18:15 Urine Urobilinogen 0.2 E.U./dL (<1 E.U./dL) 02/15/18 18:15 Ur Leukocyte Esterase Trace Franches[place]/uL (NEGATIVE) H 02/15/18 18:15 Urine RBC 10 - 15 /hpf (0-2) 02/15/18 18:15 Urine WBC 15 - 20 /hpf (0-6) 02/15/18 18:15 Ur Epithelial Cells 10 - 12 /hpf (0-5) 02/15/18 18:15 Urine Bacteria Mod (NEG) 02/15/18 18:15 Vancomycin Trough 6.6 ug/mL (5.0-10.0) 02/23/18 17:00 Urine Opiates Screen Positive (NEGATIVE) H 02/15/18 18:15 Urine Methadone Screen Negative (NEGATIVE) 02/15/18 18:15 Ur Barbiturates Screen Negative (NEGATIVE) 02/15/18 18:15 Ur Phencyclidine Scrn Negative (NEGATIVE) 02/15/18 18:15 Ur Amphetamines Screen Negative (NEGATIVE) 02/15/18 18:15 U Benzodiazepines Scrn Positive (NEGATIVE) H 02/15/18 18:15 U Oth Cocaine Metabols Negative (NEGATIVE) 02/15/18 18:15 U Cannabinoids Screen Negative (NEGATIVE) 02/15/18 18:15 RPR Nonreactive (NONREACTIVE) 02/17/18 06:45 T.pallidum Ab (FTA-ABS) Nonreactive (Nonreactive) 02/17/18 07:00 Hepatitis A IgM Ab Negative (NEGATIVE) 02/17/18 06:45 Hep Bs Antigen Negative (NEGATIVE) 02/17/18 06:45 Hep B Core IgM Ab Negative (NEGATIVE) 02/17/18 06:45 Hepatitis C Antibody Negative (NEGATIVE) 02/17/18 06:45 HIV 1&2 Ag/Ab, 4th Gen Nonreactive (Nonreactive) 02/17/18 07:00 - Hospital Course Hospital Course: 57 year old female with a past medical history of sciatica, affective disorder, and falls who presents with inability to move left leg. Orthopedic was consulted who recommended MRI of lumbar spine that showed findings suspicious for diskitis osteomyelitis. Urine cultures were positive for Staph Aureus. Neurosurgery was consulted who recommended no intervention given there was no encroachment on the spinal cord or any evidence of a collection in the possibly affected area to be drained. Interventional radiology was consulted and performed biopsy of the L3- L4 space that was negative for cultures. Given the high clinical suspicion of osteomyeltis diskitis in the L3-L4 space the patient was kept on IV antibiotics. She was initially on Vancomycin but it was discontinued given a reliable blood concentration could not be obtained. Daptomycin and Merropenem were continued per Infectious Disease with the patient requiring at least 6 weeks of treatment. The patient's hospital stay was protracted given that her insurance prohibited her from receiving placement in a acute or subacute facility. Furthermore, it took a great deal of time and effort for the patient to receive approval from her insurance to go home with IV antibiotics required. Physical therapy worked with the patient during the entirety of her stay. Eventually, the patient was discharged home with Physical therapy and infusion therapy arranged for her to receive at home. She lives with her mother. She was also given a prescription for a rolling walker, shower seat, left ankle-foot orthotic for her foot drop, and a portal potty. She was discharged with a prescription for her antibiotics for 5 weeks along with prescriptions for weekly CBC, CMP, CPK, ESR, and CRPs. She was asked to follow up with her PMD, Dr. Raymond within one week of discharge. - Date & Time of H&P Date of H&P: 03/01/18 Time of H&P: 11:48 Discharge Exam - Head Exam Head Exam: ATRAUMATIC, NORMAL INSPECTION, NORMOCEPHALIC - Eye Exam Eye Exam: EOMI, Normal appearance - ENT Exam ENT Exam: Mucous Membranes Moist - Respiratory Exam Respiratory Exam: Clear to PA & Lateral, NORMAL BREATHING PATTERN. absent: Accessory Muscle Use - Cardiovascular Exam Cardiovascular Exam: RRR, +S1, +S2 - GI/Abdominal Exam GI & Abdominal Exam: Normal Bowel Sounds. absent: Guarding - Extremities Exam Extremities exam: normal inspection - Neurological Exam Neurological exam: Alert, CN II-XII Intact, Oriented x3 - Psychiatric Exam Psychiatric exam: Normal Affect, Normal Mood - Skin Skin Exam: Dry, Intact, Normal Color, Warm Discharge Plan - Follow Up Plan Condition: STABLE Disposition: HOME/ ROUTINE Instructions: Insomnia, Anxiety, Adult (DC), Neuropathic Pain, Osteomyelitis (DC), Hip Pain (DC) Additional Instructions: Patient to continue antibiotics for 5 weeks. The patient should have weekly ESR, CRP, CBC, CMP, and CPK for the next 5 weeks to monitor clinical response. Patient to continue other medications as directed, unless otherwise indicated. Patient provided with script for rolling walker, Left AFO, home physical therapy, portal potty, and shower seat. Patient to follow up with PMD within one week of discharge. <Donn Dao - Last Filed: 03/01/18 19:34> Provider - Provider Date of Admission: 02/15/18 21:31 Attending physician: Donn Dao MD Hospital Course - Lab Results Lab Results: Micro Results 02/20/18 10:40 Other: Please Indicate Fungal Culture - Preliminary NO FUNGUS GROWTH IN 1 WEEK. 02/20/18 10:40 Other: Please Indicate Mycobacterial Culture - Preliminary 02/20/18 10:40 Other: Please Indicate Gram Stain - Final 02/20/18 10:40 Other: Please Indicate Body Fluid Culture - Final No growth. 02/20/18 10:40 Other: Please Indicate Anaerobic Culture - Final NO ANAEROBES ISOLATED. 02/15/18 21:00 Blood Blood Culture - Final NO GROWTH AFTER 5 DAYS 02/15/18 21:00 Blood Gram Stain - Final TEST NOT PERFORMED 02/15/18 21:25 Blood Blood Culture - Final NO GROWTH AFTER 5 DAYS 02/15/18 21:25 Blood Gram Stain - Final TEST NOT PERFORMED 02/15/18 18:15 Urine,Clean Catch Urine Culture - Final Staphylococcus Aureus Most Recent Lab Values WBC 9.8 10^3/uL (4.5-11.0) D 02/23/18 07:00 RBC 3.59 10^6/uL (3.5-6.1) 02/23/18 07:00 Hgb 10.7 g/dL (12.0-16.0) L 02/23/18 07:00 Hct 33.0 % (36.0-48.0) L 02/23/18 07:00 MCV 91.9 fl (80.0-105.0) 02/23/18 07:00 MCH 29.8 pg (25.0-35.0) 02/23/18 07:00 MCHC 32.4 g/dl (31.0-37.0) 02/23/18 07:00 RDW 14.3 % (11.5-14.5) 02/23/18 07:00 Plt Count 384 10^3/uL (120.0-450.0) 02/23/18 07:00 MPV 9.0 fl (7.0-11.0) 02/23/18 07:00 Gran % 56.4 % (50.0-68.0) 02/23/18 07:00 Lymph % (Auto) 28.2 % (22.0-35.0) 02/23/18 07:00 [place] % (Auto) 12.0 % (1.0-6.0) H 02/23/18 07:00 Eos % (Auto) 3.0 % (1.5-5.0) 02/23/18 07:00 Baso % (Auto) 0.4 % (0.0-3.0) 02/23/18 07:00 Gran # 5.51 (1.4-6.5) 02/23/18 07:00 Lymph # (Auto) 2.8 (1.2-3.4) 02/23/18 07:00 [place] # (Auto) 1.2 (0.1-0.6) H 02/23/18 07:00 Eos # (Auto) 0.3 (0.0-0.7) 02/23/18 07:00 Baso # (Auto) 0.04 K/mm3 (0.0-2.0) 02/23/18 07:00 ESR 52 mm/hr (0.0-20.0) H 02/23/18 07:00 Sodium 139 mmol/L (132-148) 02/23/18 07:00 Potassium 3.7 mmol/L (3.6-5.0) 02/23/18 07:00 Chloride 106 mmol/L (98-107) 02/23/18 07:00 Carbon Dioxide 29 mmol/L (21-33) 02/23/18 07:00 Anion Gap 8 (10-20) L 02/23/18 07:00 BUN 13 mg/dL (7-21) 02/23/18 07:00 Creatinine 0.7 mg/dl (0.7-1.2) 02/23/18 07:00 Est GFR ( Amer) > 60 02/23/18 07:00 Est GFR (Non-Af Amer) > 60 02/23/18 07:00 Random Glucose 91 mg/dL (70-110) 02/23/18 07:00 Calcium 8.1 mg/dL (8.4-10.5) L 02/23/18 07:00 Magnesium 2.1 mg/dL (1.7-2.2) 02/23/18 07:00 Total Bilirubin 0.3 mg/dL (0.2-1.3) 02/23/18 07:00 AST 32 U/L (14-36) 02/23/18 07:00 ALT 42 U/L (7-56) 02/23/18 07:00 Alkaline Phosphatase 74 U/L (38-126) 02/23/18 07:00 Total Creatine Kinase 46 U/L (35-230) 02/25/18 12:00 C-Reactive Protein 38.20 mg/L (0.0-9.9) H 02/23/18 07:00 Total Protein 5.5 g/dL (5.8-8.3) L 02/23/18 07:00 Albumin 2.7 g/dL (3.0-4.8) L 02/23/18 07:00 Globulin 2.8 gm/dL 02/23/18 07:00 Albumin/Globulin Ratio 0.9 (1.1-1.8) L 02/23/18 07:00 Urine Color Yellow (YELLOW) 02/15/18 18:15 Urine Appearance Sl cloudy (CLEAR) 02/15/18 18:15 Urine pH 6.0 (4.7-8.0) 02/15/18 18:15 Ur Specific [place] >= 1.030 (1.005-1.035) 02/15/18 18:15 Urine Protein 30 mg/dL (<30 mg/dL) H 02/15/18 18:15 Urine Glucose (UA) Negative mg/dL (NEGATIVE) 02/15/18 18:15 Urine Ketones 40 mg/dL (NEGATIVE) H 02/15/18 18:15 Urine Blood Large (NEGATIVE) H 02/15/18 18:15 Urine Nitrate Negative (NEGATIVE) 02/15/18 18:15 Urine Bilirubin Moderate (NEGATIVE) H 02/15/18 18:15 Urine Urobilinogen 0.2 E.U./dL (<1 E.U./dL) 02/15/18 18:15 Ur Leukocyte Esterase Trace [place]/uL (NEGATIVE) H 02/15/18 18:15 Urine RBC 10 - 15 /hpf (0-2) 02/15/18 18:15 Urine WBC 15 - 20 /hpf (0-6) 02/15/18 18:15 Ur Epithelial Cells 10 - 12 /hpf (0-5) 02/15/18 18:15 Urine Bacteria Mod (NEG) 02/15/18 18:15 Vancomycin Trough 6.6 ug/mL (5.0-10.0) 02/23/18 17:00 Urine Opiates Screen Positive (NEGATIVE) H 02/15/18 18:15 Urine Methadone Screen Negative (NEGATIVE) 02/15/18 18:15 Ur Barbiturates Screen Negative (NEGATIVE) 02/15/18 18:15 Ur Phencyclidine Scrn Negative (NEGATIVE) 02/15/18 18:15 Ur Amphetamines Screen Negative (NEGATIVE) 02/15/18 18:15 U Benzodiazepines Scrn Positive (NEGATIVE) H 02/15/18 18:15 U Oth Cocaine Metabols Negative (NEGATIVE) 02/15/18 18:15 U Cannabinoids Screen Negative (NEGATIVE) 02/15/18 18:15 RPR Nonreactive (NONREACTIVE) 02/17/18 06:45 T.pallidum Ab (FTA-ABS) Nonreactive (Nonreactive) 02/17/18 07:00 Hepatitis A IgM Ab Negative (NEGATIVE) 02/17/18 06:45 Hep Bs Antigen Negative (NEGATIVE) 02/17/18 06:45 Hep B Core IgM Ab Negative (NEGATIVE) 02/17/18 06:45 Hepatitis C Antibody Negative (NEGATIVE) 02/17/18 06:45 HIV 1&2 Ag/Ab, 4th Gen Nonreactive (Nonreactive) 02/17/18 07:00 - Hospital Course Hospital Course: Pt seen and examined. I have reviewed the note of the medical records tech and agree with it. I have discussed the assessment and plan with the resident. I have reviewed the patient's labs and medications. Pt with discitis and will be on Daptomycin for the next 5 weeks. She is walking better. She was given Rx for walker, shower seats. She is going to go home and will f/u as outpt. Walking is improving. D/C home.
[2018-03-01 14:37] VITALS: BP 123/71; PULSE 83; TEMP 98.1; O2SAT 100
[2018-03-01] MEDS ORDERED: Influenza Vaccine 60 mcg/0.5 mL SYR (4YR UP) IM ONE (15:35)
== END 2018-03-01 17:38 | disposition home or self-care (01) | DRG 478 ==
LOC: ED 14:46 → ERH 21:31 → 5RNO 23:12
PROVIDERS: ADMIT Internal Medicine Nephrology; ATTEND Internal Medicine Nephrology
PROC: 0Q903ZX Drainage of Lumbar Vertebra, Percutaneous Approach, Diagnostic (ICD-10-PCS; principal; 2018-02-20 10:00)
PROC: 02HV33Z Insertion of Infusion Device into Superior Vena Cava, Percutaneous Approach (ICD-10-PCS; 2018-02-23)
PROC: B548ZZA Ultrasonography of Superior Vena Cava, Guidance (ICD-10-PCS; 2018-02-23)
DX: M46.46 Discitis, unspecified, lumbar region (principal); M46.26 Osteomyelitis of vertebra, lumbar region; N39.0 Urinary tract infection, site not specified; B95.61 Methicillin susceptible Staphylococcus aureus infection as the cause of diseases classified elsewhere; M54.17 Radiculopathy, lumbosacral region; F31.9 Bipolar disorder, unspecified; G89.29 Other chronic pain; M21.379 Foot drop, unspecified foot; M48.061 Spinal stenosis, lumbar region without neurogenic claudication; G47.00 Insomnia, unspecified; F41.9 Anxiety disorder, unspecified; F17.210 Nicotine dependence, cigarettes, uncomplicated; Z91.81 History of falling

== ENCOUNTER 2018-04-03 12:07 | Inpatient (IN) | payer MEDICARE, OTHER ==
[2018-04-03 12:12] VITALS: BMI 18.9
--- NOTE | 2018-04-03 13:09 | ED PDOC ---
Arrival/HPI - General Chief Complaint: Lower Extremity Problem/Injury Time Seen by Provider: 04/03/18 12:45 Historian: Patient - History of Present Illness Narrative History of Present Illness (Text): 04/03/18 13:09 A 57 year old female, whose past medical history includes sciatica, chronic back pain, anxiety, past smoker, recent admission for discitis, currently on abx presents to the emergency department with a complaint of left lower extremity pain and numbness with left upper extremity upper extremity tingling sensation. The patient reports that she feels the most pain in her left extremity. She states that she has been experiencing these symptoms for the past 5+ days. The patient notes that she took her antibiotics today. Patient denies fevers, chills, headache, dizziness, chest pain, shortness of breath, dyspnea on exertion, cough, abdominal pain, nausea, vomiting, diarrhea, back pain, neck pain, urinary/bowel changes, or any other complaint. PMD: Dr. Sevilla Time/Duration: Other (5 days) Symptom Onset: Sudden Symptom Course: Unchanged Activities at Onset: Rest, Light Context: Home Past Medical History - Provider Review Nursing Documentation Reviewed: Yes - Infectious Disease Hx of Infectious Diseases: None - Tetanus Immunization Tetanus Immunization: Unknown - Past Medical History Past Medical History: No Previous - Cardiac Hx Pacemaker: No - Pulmonary Hx Respiratory Disorders: No - Neurological Hx Paralysis: No - HEENT Hx HEENT Disorder: No - Renal Hx Renal Disorder: No - Endocrine/Metabolic Hx Endocrine Disorders: No - Hematological/Oncological Hx Cancer: No - Integumentary Hx Dermatological Disorder: No - Musculoskeletal/Rheumatological Hx Musculoskeletal Disorders: Yes Hx Falls: Yes - Gastrointestinal Hx Gastrointestinal Disorders: No - Genitourinary/Gynecological Hx Genitourinary Disorders: No - Psychiatric Hx Emotional Abuse: No Hx Physical Abuse: No Hx Substance Use: No - Past Surgical History Past Surgical History: No Previous - Surgical History Hx Mastectomy: No - Anesthesia Hx Anesthesia Reactions: No Hx Malignant Hyperthermia: No - Suicidal Assessment Feels Threatened In Home Enviroment: No Family/Social History - Physician Review Nursing Documentation Reviewed: Yes Family/Social History: No Known Family HX Smoking Status: Heavy Smoker > 10 Cigarettes Daily Hx Alcohol Use: No Hx Substance Use: No Hx Substance Use Treatment: No Allergies/Home Meds Allergies/Adverse Reactions: Allergies acetaminophen Adverse Reaction (Severe, Verified 01/26/18 11:07) NAUSEA aspirin Adverse Reaction (Severe, Verified 01/26/18 11:07) NAUSEA Home Medications: Home Meds Medication Instructions Recorded Confirmed RX: Buspirone HCl 15 mg PO TID 05/26/16 05/16/17 RX: Clonazepam [Klonopin] 0.5 mg PO BID 05/26/16 05/16/17 RX: HYDROmorphone [Dilaudid] 2 mg PO 5XD 05/26/16 05/16/17 RX: Mirtazapine [Remeron] 30 mg PO HS 05/26/16 05/16/17 RX: Paroxetine HCl [Paxil] 40 mg PO DAILY 05/26/16 05/16/17 RX: QUEtiapine [Seroquel] 100 mg PO HS 05/26/16 05/16/17 RX: Temazepam [Restoril] 15 mg PO HS 05/26/16 05/16/17 RX: Fentanyl [Duragesic Patch] 1 patch TD Q72 05/16/17 05/16/17 RX: Mirtazapine [Remeron] 30 mg PO HS 05/16/17 05/16/17 Review of Systems - Physician Review All systems were reviewed & negative as marked: Yes - Review of Systems Constitutional: absent: Fevers Respiratory: absent: SOB, Cough Cardiovascular: absent: Chest Pain, BERMUDEZ Gastrointestinal: absent: Abdominal Pain, Stool Changes, Diarrhea, Nausea, Vomiting Genitourinary Female: absent: Urine Output Changes Musculoskeletal: Other (Lower extremity pain and numbness.). absent: Back Pain, Neck Pain Neurological: absent: Headache, Dizziness Physical Exam Appearance: Positive for: Well-Appearing, Non-Toxic, Comfortable Pain Distress: None Mental Status: Positive for: Alert and Oriented X 3 - Systems Exam Head: Present: Atraumatic, Normocephalic Pupils: Present: PERRL Extroacular Muscles: Present: EOMI Conjunctiva: Present: Normal Mouth: Present: Moist Mucous Membranes Neck: Present: Normal Range of Motion Respiratory/Chest: Present: Clear to Auscultation, Good Air Exchange. No: Respiratory Distress, Accessory Muscle Use Cardiovascular: Present: Regular Rate and Rhythm, Normal S1, S2. No: Murmurs Abdomen: No: Tenderness, Distention, Peritoneal Signs Back: Present: Normal Inspection, Other (No vertebral tenderness.). No: CVA Tenderness, Midline Tenderness, Paraspinal Tenderness, Pain with Leg Raise, Decubitus Ulcer Upper Extremity: Present: Normal Inspection, Neurovascularly Intact (Strength 5/5), Other (RUE midline intact, no crepitus or erythema). No: Cyanosis, Edema Lower Extremity: Present: Normal Inspection, Neurovascularly Intact (Strength 3/5, LLE. 5/5 RLE). No: Edema Neurological: Present: GCS=15, CN II-XII Intact, Speech Normal Skin: Present: Warm, Dry, Normal Color. No: Rashes Psychiatric: Present: Alert, Oriented x 3, Normal Insight, Normal Concentration Medical Decision Making ED Course and Treatment: 04/03/18 13:16 Impression: A 57 year old female presents to the emergency department with a complaint of left lower extremity pain, numbness and lower + upper extremity tingling for 1 week. On exam, no sensory deficits. No vertebral tenderness. Good strength in RLE, LUE, RUE. 3/5 in LLE. No enuresis, encoparesis or saddle anesthesia. Given recent hx of discitis currently on ABX (took am dose this morning of merrem) will seek imaging, labs for worsening. No indication of cauda equina currently however. No trauma or falls per pt. Plan: -- Blood Culture -- Klonopin -- Labs -- Reassess and disposition Prior Visits: Notes and results from previous visits were reviewed. Progress Notes: 04/03/18 15:40: Discussed case with Dr. Sevilla Pt notes she had her ABX today already 04/03/18 15:[address] Sevilla- CT L/S cancelled, MRI ordered per PMD. pt in NAD. 04/03/18 1753 CTH unremarkable, pt in NAD - Lab Interpretations I have reviewed the lab results: Yes - Scribe Statement The provider has reviewed the documentation as recorded by the Elizabeth Aguirre Provider Scribe Attestation: All medical record entries made by the Scribe were at my direction and personally dictated by me. I have reviewed the chart and agree that the record accurately reflects my personal performance of the history, physical exam, medical decision making, and the department course for this patient. I have also personally directed, reviewed, and agree with the discharge instructions and disposition. Disposition/Present on Arrival - Present on Arrival Any Indicators Present on Arrival: No History of DVT/PE: No History of Uncontrolled Diabetes: No Urinary Catheter: No History Surgical Site Infection Following: None - Disposition Have Diagnosis and Disposition been Completed?: Yes Diagnosis: Weakness Disposition: HOSPITALIZED Disposition Time: 15:51 Patient Problems: Current Active Problems Problem Status Onset Weakness Acute Condition: GOOD
[2018-04-03 15:13] LABS: VENOUS BLOOD GAS BASE EXCESS 6.6 mmol/L (0.0-2.0); VENOUS BLOOD GAS PO2 54 mm/Hg (30-55); VENOUS BLOOD PH 7.42 (7.32-7.43)
[2018-04-03 15:19] LABS: BASO # 0.02 K/mm3 (0.0-2.0); BASO % 0.2 % (0.0-3.0); EOS % 0.4 % (1.5-5.0); GRAN # 7.05 (1.4-6.5); GRAN % 70.4 % (50.0-68.0); HEMOGLOBIN 11.4 g/dL (12.0-16.0); LYMPH # 2.2 (1.2-3.4); LYMPH % 21.9 % (22.0-35.0); MEAN CELL VOLUME 88.9 fl (80.0-105.0); MEAN CORPUSCULAR HEMOGLOBIN 29.5 pg (25.0-35.0); MEAN CORPUSCULAR HGB CONC 33.2 g/dl (31.0-37.0); MEAN PLATELET VOLUME 8.8 fl (7.0-11.0); MONO # 0.7 (0.1-0.6); MONO % 7.1 % (1.0-6.0); RBC 3.86 10^6/uL (3.5-6.1); RED CELL DISTRIBUTION WIDTH 14.2 % (11.5-14.5)
[2018-04-03 15:28] LABS: ALB/GLOB RATIO 1.2 (1.1-1.8); ALBUMIN 4.1 g/dL (3.0-4.8); BLOOD UREA NITROGEN 10 mg/dL (7-21); CALCIUM 9.2 mg/dL (8.4-10.5); GFR NON-AFRICAN AMERICAN > 60
[2018-04-03 15:50] LABS: ALT/SGPT 46 U/L (7-56); AST/SGOT 39 U/L (14-36)
[2018-04-03] MEDS ORDERED: Meropenem IV 1 gm in NS 1 GM/50 ML BAG IVPB ONE (17:22)
--- NOTE | 2018-04-03 17:56 | CT ---
Date of service: 04/03/2018 PROCEDURE: CT HEAD WITHOUT CONTRAST. HISTORY: LUE parathesia, LLE weak COMPARISON: None available. TECHNIQUE: Axial computed tomography images were obtained through the head/brain without intravenous contrast. Radiation dose: Total exam DLP = 865.7 mGy-cm. This CT exam was performed using one or more of the following dose reduction techniques: Automated exposure control, adjustment of the mA and/or kV according to patient size, and/or use of iterative reconstruction technique. FINDINGS: HEMORRHAGE: No intracranial hemorrhage. BRAIN: No mass effect or edema. No atrophy or chronic microvascular ischemic changes. VENTRICLES: Unremarkable. No hydrocephalus. CALVARIUM: Unremarkable. PARANASAL SINUSES: Unremarkable as visualized. No significant inflammatory changes. MASTOID AIR CELLS: Unremarkable as visualized. No inflammatory changes. OTHER FINDINGS: None. IMPRESSION: No acute intracranial findings
[2018-04-03] MEDS ORDERED: DAPTOmycin 500 mg Inj (Cubicin) IV SCH (20:15)
[2018-04-03] MEDS ORDERED: TEMAZEPAM 15 MG PO SCH (22:00)
--- NOTE | 2018-04-04 05:10 | HP ---
DATE OF EXAM: 04/03/2018 HISTORY OF PRESENT ILLNESS: The patient is 57 years old, known to me from last admission when she was under the care of Dr. Dao. I saw the patient in office to renew her pain medication. 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 I got a call from visiting nurse that the patient is having difficulty moving her left leg, it seems to be numb, so I advised them to bring to emergency room for further evaluation. Denies any trauma. Denies any chest pain. No shortness of breath. No fevers. No chills. No nausea or vomiting. The patient had thoracic MRI done back on 02/17/2018 and at that point it shows unremarkable noncontrast enhanced MRI of the thoracic spine. PAST MEDICAL HISTORY: Significant for: 1. Lumbosacral radiculopathy. 2. History of anxiety disorder. The patient was admitted in February, had MRI of the lumbosacral spine that showed possible discitis versus osteomyelitis. Biopsy was done and it was decided to put her on meropenem and daptomycin that she has been receiving since discharge last time. ALLERGIES: SHE IS ALLERGIC TO ASPIRIN AND ACETAMINOPHEN. MEDICATIONS AT HOME: She is on Restoril 15 mg at bedtime, Seroquel 100 mg at bedtime, Lyrica 50 mg twice a day, Paxil 40 mg daily, Remeron 30 mg at bedtime, Dilaudid 2 mg three times a day, Duragesic patch. She is on Colace. She is on daptomycin, Klonopin, and BuSpar. SOCIAL HISTORY: She is single, currently smokes. No history of drug abuse, but takes prescription drugs. PHYSICAL EXAMINATION: GENERAL: She is awake, alert, oriented, communicative. VITAL SIGNS: She is afebrile, pulse 103, respirations 18, blood pressure 131/87. LUNGS: Bilateral fair airflow. No rhonchi or crackle. HEART: S1 and S2 audible. ABDOMEN: Soft and nontender. No rebound. No guarding. NEUROLOGIC: The patient is awake and alert, able to communicate. Her left leg motor is 3/5. ASSESSMENT: 1. Left leg weakness. 2. Lumbosacral radiculopathy. 3. Anxiety disorder. 4. Discitis, being treated with daptomycin and meropenem at home. PLAN: We will restart her medication. Get neuro eval. Her MRI of lumbosacral spine done and request for physical therapy. We will follow up the patient in a.m. Nasra Sevilla MD
--- NOTE | 2018-04-04 13:13 | MRI ---
Date of service: 04/04/2018 PROCEDURE: MR LUMBAR SPINE WITHOUT CONTRAST HISTORY: recent dx discitis, now p/w pain + LLE weak COMPARISON: MRI 02/16/2018 TECHNIQUE: Multiecho multiplanar sequences were performed through the lumbar spine without the use of intravenous contrast. FINDINGS: Normal lumbar lordosis. Vertebral body heights are preserved. The pattern of marrow edema adjacent to the L3-4 disc space is unchanged. There is also edema within the disc space at L2-3 and L3-4 also unchanged. Conus medullaris unremarkable at the level of Paraspinal soft tissues are unremarkable. T12-L1: No disc herniation, spinal canal stenosis or neural foraminal narrowing. L1-2: No disc herniation, spinal canal stenosis or neural foraminal narrowing. L2-3: Disc degeneration with loss of height and edema within the disc space. L3-4: Disc degeneration and disc bulge. No evidence of paravertebral inflammation L4-5: Facet arthropathy without stenosis L5-S1: No disc herniation, spinal canal stenosis or neural foraminal narrowing. OTHER FINDINGS: None. IMPRESSION: The pattern of marrow edema adjacent to the L3-4 disc space is unchanged. There is also edema within the disc space at L2-3 and L3-4 also unchanged. No acute findings
--- NOTE | 2018-04-04 13:21 | CP.PCM.CON ---
History of Present Illness - History of Present Illness History of Present Illness: 57 year old female with PMH of bipolar disorder, depression, anxiety, history of heavy smoking, was admitted recently in [facility] because of back pain and lower extremity weakness and was found to have lumbar spinal discitis and has been on antibiotics for at least 4 weeks. She has been doing well at home until this week when she went to her PMD for a follow up and she states she seems to have tweaked her left leg and it is hurting with some tingling sensation. She denies fever or chills, no increased pain in the back, no headache or dizziness, no chest pain, no SOB, no diarrhea, no dysuria, no bowel or urinary incontinence. Infectious diseases consult is requested for antibiotic management. Review of Systems - Review of Systems All systems: reviewed and no additional remarkable complaints except (as per HPI) Past Patient History - Infectious Disease Hx of Infectious Diseases: None - Tetanus Immunizations Tetanus Immunization: Unknown - Past Social History Smoking Status: Former Smoker - CARDIAC Hx Pacemaker: No - PULMONARY Hx Respiratory Disorders: No - NEUROLOGICAL Other/Comment: bacteria in spine - HEENT Hx HEENT Problems: No - RENAL Hx Chronic Kidney Disease: No - ENDOCRINE/METABOLIC Hx Endocrine Disorders: No - HEMATOLOGICAL/ONCOLOGICAL Hx Cancer: No - INTEGUMENTARY Hx Dermatological Problems: No - MUSCULOSKELETAL/RHEUMATOLOGICAL Hx Falls: Yes - GASTROINTESTINAL Hx Gastrointestinal Disorders: No - GENITOURINARY/GYNECOLOGICAL Hx Genitourinary Disorders: No - PSYCHIATRIC Hx Substance Use: No - SURGICAL HISTORY Hx Mastectomy: No - ANESTHESIA Hx Anesthesia Reactions: No Hx Malignant Hyperthermia: No Meds Allergies/Adverse Reactions: Allergies Allergy/AdvReac Type Severity Reaction Status Date / Time acetaminophen AdvReac Severe NAUSEA Verified 01/26/18 11:07 aspirin AdvReac Severe NAUSEA Verified 01/26/18 11:07 - Medications Medications: Current Medications Buspirone HCl (Buspar) 15 mg PO TID [facility] Clonazepam (Klonopin) 0.5 mg PO BID [facility]; Protocol Last Admin: 04/03/18 21:59 Dose: 0.5 mg Docusate Sodium (Colace) 100 mg PO BID [facility] Last Admin: 04/03/18 21:56 Dose: 100 mg Hydromorphone HCl (Dilaudid) 1 mg PO TID [facility] Daptomycin 400 mg/ Sodium (Chloride) 100 mls @ 200 mls/hr IV Q24H [facility] Stop: 04/08/18 23:59 Mirtazapine (Remeron) 30 mg PO HS [facility] Last Admin: 04/03/18 21:57 Dose: 30 mg Non-Formulary Medication (Temazepam [Restoril]) 15 mg PO HS [facility] Paroxetine HCl (Paxil) 40 mg PO DAILY [facility] Pregabalin (Lyrica) 50 mg PO BID [facility] Last Admin: 04/03/18 21:57 Dose: 50 mg Quetiapine Fumarate (Seroquel) 100 mg PO HS [facility]; Protocol Last Admin: 04/03/18 21:57 Dose: 100 mg Physical Exam - Constitutional Appears: Chronically Ill - Head Exam Head Exam: NORMAL INSPECTION - Neck Exam Neck exam: Negative for: Meningismus - Respiratory Exam Respiratory Exam: Decreased Breath Sounds - Cardiovascular Exam Cardiovascular Exam: +S1, +S2 - GI/Abdominal Exam GI & Abdominal Exam: Soft. absent: Tenderness Results - Vital Signs Recent Vital Signs: Last Vital Signs Temp 98.3 F 04/03/18 12:35 Pulse 101 H 04/03/18 16:00 Resp 18 04/03/18 22:58 BP 131/87 04/03/18 16:00 Pulse Ox 97 04/03/18 16:00 - Labs Result Diagrams: 04/03/18 15:12 04/03/18 15:12 Labs: Laboratory Results - last 24 hr 04/03/18 04/03/18 04/03/18 15:05 15:12 15:12 WBC 10.0 RBC 3.86 Hgb 11.4 L Hct 34.3 L MCV 88.9 D MCH 29.5 MCHC 33.2 RDW 14.2 Plt Count 352 MPV 8.8 Gran % 70.4 H Lymph % (Auto) 21.9 L [place] % (Auto) 7.1 H Eos % (Auto) 0.4 L Baso % (Auto) 0.2 Gran # 7.05 H Lymph # (Auto) 2.2 [place] # (Auto) 0.7 H Eos # (Auto) 0.0 Baso # (Auto) 0.02 pO2 54 VBG pH 7.42 VBG pCO2 50.0 VBG HCO3 32.4 H VBG Total CO2 33.9 H VBG O2 Sat (Calc) 89.2 H VBG Base Excess 6.6 H VBG Potassium 4.0 Sodium 142.0 141 Chloride 106.0 105 Glucose 93 Lactate 0.9 FiO2 21.0 Potassium 3.9 Carbon Dioxide 29 Anion Gap 12 BUN 10 Creatinine 0.7 Est GFR ( Amer) > 60 Est GFR (Non-Af Amer) > 60 Random Glucose 89 Calcium 9.2 Total Bilirubin 0.6 AST 39 H D ALT 46 Alkaline Phosphatase 115 Total Protein 7.4 Albumin 4.1 Globulin 3.4 Albumin/Globulin Ratio 1.2 Venous Blood Potassium 4.0 Assessment & Plan - Assessment and Plan (Free Text) Plan: Assessment possible L4-L5 discitis / vertebral osteomyelitis has been on at least 4-5 weeks of antibiotic therapy history of UTI with Staph aureus sciatica bipolar disorder depression Plan continue Daptomycin and Merrem and will check ESR, CRP, CPK levels may need further Neuro evaluation will monitor clinically
--- NOTE | 2018-04-04 14:00 | CP.PCM.PCO ---
Physician Communication Note - Physician Communication Note Physician Communication Note: mri ls spine reviewed. will need pt/rehab/neurosurg eval.
--- NOTE | 2018-04-04 15:49 | RAD ---
Date of service: 04/04/2018 HISTORY: Eval Placement of PICC COMPARISON: No prior. FINDINGS: LUNGS: No active pulmonary disease. PLEURA: No significant pleural effusion identified, no pneumothorax apparent. CARDIOVASCULAR: No aortic atherosclerotic calcification present. Normal cardiac size. No pulmonary vascular congestion. OSSEOUS STRUCTURES: No significant abnormalities. VISUALIZED UPPER ABDOMEN: Normal. OTHER FINDINGS: None. IMPRESSION: The PICC line terminates near the junction of the SVC and right atrium in satisfactory position
--- NOTE | 2018-04-04 15:59 | CP.PCM.PN ---
Subjective - Date & Time of Evaluation Date of Evaluation: 04/04/18 Time of Evaluation: 15:58 - Subjective Subjective: full consult dictated no surgical intervention indicated Objective - Vital Signs/Intake and Output Vital Signs (last 24 hours): Temp Pulse Resp BP Pulse Ox 98.3 F 92 H 19 122/74 96 04/04/18 08:42 04/04/18 08:42 04/04/18 08:42 04/04/18 08:42 04/04/18 08:42 - Medications Medications: Current Medications Buspirone HCl (Buspar) 15 mg PO TID [facility] Last Admin: 04/04/18 15:50 Dose: 15 mg Clonazepam (Klonopin) 0.5 mg PO BID [facility]; Protocol Last Admin: 04/04/18 09:12 Dose: 0.5 mg Docusate Sodium (Colace) 100 mg PO BID [facility] Last Admin: 04/04/18 09:13 Dose: 100 mg Hydromorphone HCl (Dilaudid) 1 mg PO TID [facility] Last Admin: 04/04/18 14:26 Dose: 1 mg Daptomycin 400 mg/ Sodium (Chloride) 100 mls @ 200 mls/hr IV Q24H [facility] Stop: 04/08/18 23:59 Meropenem (Merrem Iv 1 Gm Premix) 1 gm in 50 mls @ 100 mls/hr IVPB Q8 [facility]; Protocol Mirtazapine (Remeron) 30 mg PO HS [facility] Last Admin: 04/03/18 21:57 Dose: 30 mg Non-Formulary Medication (Temazepam [Restoril]) 15 mg PO HS [facility] Paroxetine HCl (Paxil) 40 mg PO DAILY [facility] Last Admin: 04/04/18 09:12 Dose: 40 mg Pregabalin (Lyrica) 50 mg PO BID [facility] Last Admin: 04/04/18 09:12 Dose: 50 mg Quetiapine Fumarate (Seroquel) 100 mg PO HS [facility]; Protocol Last Admin: 04/03/18 21:57 Dose: 100 mg - Labs Labs: 04/03/18 15:12 04/03/18 15:12
[2018-04-04] MEDS: Meropenem IV 1 gm in NS 1 GM/50 ML BAG IVPB SCH ×2 (16:04→21:08)
--- NOTE | 2018-04-04 18:33 | PN ---
DATE: 04/04/2018 SUBJECTIVE: The patient is a 57-year-old, seen and examined, was admitted because of left leg and foot weakness. No history of fever or chills. No nausea or vomiting. PHYSICAL EXAMINATION VITAL SIGNS: The patient is afebrile, pulse 92, respirations 19, blood pressure 122/74. LUNGS: Bilateral fair airflow. No rhonchi or crackle. HEART: S1 and S2 audible. ABDOMEN: Soft and nontender. No rebound. No guarding. NEUROLOGIC: The patient is awake and alert, oriented and communicative. Moves all extremities except her left lower leg, strength is 3/5 and on the right side is 5/5. She has poor plantar flexion and dorsi flexion, basically she has left footdrop. LABORATORY DATA: WBC is 10, hemoglobin 11, hematocrit 34, is 46, CRP is less than 5. Blood cultures are negative. She had MRI of the lumbar spine done that shows marrow edema adjacent to the L3-L4 that is unchanged. There is also edema with the disc space at L2, L3, L4 and L5 that is also unchanged. ASSESSMENT AND PLAN: 1. Left leg weakness and numbness. 2. Discitis. 3. Anxiety disorder. 4. Left footdrop. PLAN: Surgical intervention noted and appreciated. We will continue the patient on current medication that is daptomycin and meropenem. Analgesic as needed. Spoke to neurologist. The patient can be discharged and she will continue her meropenem and daptomycin recommended by ID initially and then will have follow up done. We will reevaluate patient in a.m. Nasra Sevilla MD
[2018-04-05] MEDS: Meropenem IV 1 gm in NS 1 GM/50 ML BAG IVPB SCH ×3 (05:06→21:43)
--- NOTE | 2018-04-05 07:06 | CP.PCM.PN ---
<Noni Riley - Last Filed: 04/05/18 12:50> Subjective - Date & Time of Evaluation Date of Evaluation: 04/05/18 Time of Evaluation: 07:05 - Subjective Subjective: ID progress note PGY-[address] Johnston Pt complained of nausea and 3 times watery diarrhea since yesterday. She did not eat her breakfast. complained of tiredness and nausea. Denies fever,chills, CO, SOB, dysuria. (+) leg pain the same as admission Objective - Vital Signs/Intake and Output Vital Signs (last 24 hours): Temp Pulse Resp BP Pulse Ox 97.7 F 83 20 111/70 97 04/05/18 06:00 04/05/18 06:00 04/05/18 06:00 04/05/18 06:00 04/05/18 06:00 - Medications Medications: Current Medications Buspirone HCl (Buspar) 15 mg PO TID [facility] Last Admin: 04/04/18 18:23 Dose: 15 mg Clonazepam (Klonopin) 0.5 mg PO BID [facility]; Protocol Last Admin: 04/04/18 17:29 Dose: 0.5 mg Docusate Sodium (Colace) 100 mg PO BID [facility] Last Admin: 04/04/18 17:29 Dose: 100 mg Hydromorphone HCl (Dilaudid) 2 mg PO DAILY [facility] Hydromorphone HCl (Dilaudid) 1 mg PO 1400,1800 [facility] Daptomycin 400 mg/ Sodium (Chloride) 100 mls @ 200 mls/hr IV Q24H [facility] Stop: 04/08/18 23:59 Meropenem (Merrem Iv 1 Gm Premix) 1 gm in 50 mls @ 100 mls/hr IVPB Q8 [facility]; Protocol Last Admin: 04/05/18 05:06 Dose: 100 mls/hr Mirtazapine (Remeron) 30 mg PO HS [facility] Last Admin: 04/04/18 21:09 Dose: 30 mg Non-Formulary Medication (Temazepam [Restoril]) 15 mg PO HS [facility] Paroxetine HCl (Paxil) 40 mg PO DAILY [facility] Last Admin: 04/04/18 09:12 Dose: 40 mg Pregabalin (Lyrica) 50 mg PO BID [facility] Last Admin: 04/04/18 17:30 Dose: 50 mg Quetiapine Fumarate (Seroquel) 100 mg PO HS [facility]; Protocol Last Admin: 04/04/18 21:09 Dose: 100 mg - Labs Labs: 04/03/18 15:12 04/03/18 15:12 - Constitutional Appears: No Acute Distress - Head Exam Head Exam: ATRAUMATIC, NORMAL INSPECTION, NORMOCEPHALIC - Eye Exam Eye Exam: EOMI, Normal appearance, PERRL. absent: Scleral icterus Pupil Exam: NORMAL ACCOMODATION - ENT Exam ENT Exam: Mucous Membranes Dry - Neck Exam Additional comments: supple. mild neck pain on palpation - Respiratory Exam Respiratory Exam: Clear to Ausculation Bilateral, NORMAL BREATHING PATTERN. abs ent: Rales, Rhonchi, Wheezes - Cardiovascular Exam Cardiovascular Exam: REGULAR RHYTHM, +S1, +S2 - GI/Abdominal Exam GI & Abdominal Exam: Soft, Tenderness, Hyperactive Bowel Sounds. absent: Guarding, Rigid, Pulsatile Mass, Rebound - Extremities Exam Extremities Exam: Tenderness (pain constant LLE, unchange as compared to yesterday). absent: Calf Tenderness, Pedal Edema - Back Exam Back Exam: absent: CVA tenderness (L), CVA tenderness (R) - Neurological Exam Neurological Exam: Alert, Awake, Oriented x3 - Psychiatric Exam Psychiatric exam: Normal Affect, Normal Mood Assessment and Plan - Assessment and Plan (Free Text) Plan: Ms Nelson, 57 F, with PMH of heavy smoking, bipolar disorder, depression, and anxiety, was recently admitted for back pain and lower extremity weakness secondary to lumbar spinal discitis. She had 4-5 weeks of daptomycin and merrem. She is s/p dexamethasone. She is readmitted for new leg pain with tingling sensation. New leg weakness, numbness, foot drop possible due to irriation around nerve root or cauda equina secondary to resolving discitis/vertebral osteomyelitis at L4-5 s/p CT guided L3-4 space aspiration (02/21/08) while on antibiotics No evidence of neuronal compression per MRI New onset Diarrhea r/o c.diff history of UTI with Staph aureus (02/15/18) sciatica bipolar disorder, depression PICC line (inserted 02/23/18) Aspirin and tylenol side effect-nausea Plan continue Daptomycin and merrem (day 2) in addition to prior 4-5 weeks of treatment Lyrica for pain control Neurosurgery on board Physical therapy and rehab Follow on blood culture For diarrhea, NS@100 for decrease PO intake with diarrhea. Hold Bentyl. Follow up on C.diff test; Zofran PRN Weekly CBC with differential, CMP, ESR, CRP, CPK Imaging/Culture MRI lumbar w/o contrast (04/04): L3-4 diskitis and epidural abscess with marrow edema, unchanged, no acute finding. MRI thoracic w/o contrast (02/17): unremarkable Urine culture (02/15) MSSA Spinal abscess culture (02/20): negative culture, no fungus. No mycobacterial. no anaerobes. ESR 40 (52) CRP <5 (38) CPK 46 (normal) s/r/d/w Dr. Johnston <Delvis Johnston S - Last Filed: 04/05/18 16:43> Objective - Vital Signs/Intake and Output Vital Signs (last 24 hours): Temp Pulse Resp BP Pulse Ox 97.7 F 83 20 111/70 97 04/05/18 06:00 04/05/18 06:00 04/05/18 06:00 04/05/18 06:00 04/05/18 06:00 - Medications Medications: Current Medications Buspirone HCl (Buspar) 15 mg PO TID [facility] Last Admin: 04/05/18 13:58 Dose: 15 mg Clonazepam (Klonopin) 0.5 mg PO BID [facility]; Protocol Last Admin: 04/05/18 10:14 Dose: 0.5 mg Docusate Sodium (Colace) 100 mg PO BID [facility] Last Admin: 04/05/18 10:13 Dose: Not Given Hydromorphone HCl (Dilaudid) 2 mg PO DAILY [facility] Last Admin: 04/05/18 10:14 Dose: 2 mg Hydromorphone HCl (Dilaudid) 1 mg PO 1400,1800 [facility] Last Admin: 04/05/18 13:59 Dose: 1 mg Daptomycin 400 mg/ Sodium (Chloride) 100 mls @ 200 mls/hr IV Q24H [facility] Stop: 04/08/18 23:59 Meropenem (Merrem Iv 1 Gm Premix) 1 gm in 50 mls @ 100 mls/hr IVPB Q8 [facility]; Protocol Last Admin: 04/05/18 14:00 Dose: 100 mls/hr Sodium Chloride (Sodium Chloride 0.9%) 1,000 mls @ 100 mls/hr IV .Q10H [facility] Last Admin: 04/05/18 10:14 Dose: 100 mls/hr Mirtazapine (Remeron) 30 mg PO HS [facility] Last Admin: 04/04/18 21:09 Dose: 30 mg Non-Formulary Medication (Temazepam [Restoril]) 15 mg PO HS [facility] Ondansetron HCl (Zofran Inj) 4 mg IVP Q6H PRN PRN Reason: Nausea/Vomiting Last Admin: 04/05/18 10:28 Dose: 4 mg Paroxetine HCl (Paxil) 40 mg PO DAILY [facility] Last Admin: 04/05/18 10:14 Dose: 40 mg Pregabalin (Lyrica) 50 mg PO BID [facility] Last Admin: 04/05/18 10:14 Dose: 50 mg Quetiapine Fumarate (Seroquel) 100 mg PO HS [facility]; Protocol Last Admin: 04/04/18 21:09 Dose: 100 mg - Labs Labs: 04/05/18 11:15 04/05/18 11:15 Assessment and Plan - Assessment and Plan (Free Text) Plan: Infectious diseases Attending Physician Attestation Patient seen and examined, discussed with medical records assistant. I have reviewed the patient's history of present illness, past medical, social, personal and family histories, pertinent physical exam findings, course so far in this hospital admission, pertinent laboratory and imaging results. I agree with the above findings, assessment and plan. In addition, continue Daptomycin and Merrem for lumbar discitis. Reviewed repeat MRI - done close to previous MRI and should repeat in 3 months - expected to have no change 1-2 months while on therapy, therefore need repeat MRI in 3 months.
--- NOTE | 2018-04-05 08:38 | CON ---
DATE: 04/04/2018 HISTORY OF PRESENT ILLNESS: This patient was seen in last admission by my partner, Dr. Noonan. At that time, she had complaint of weakness of the right leg. On exam, he found that there was indeed no weakness. She had a MRI that showed edema in the L2, L3 and L4 vertebral bodies consistent with diskitis, osteomyelitis, and needle biopsy was positive for Staph aureus. She was started on antibiotics. There was no other reliable neurologic evaluation except for Dr. Goldstein, Dr. Noonan who found that she had some mild weakness secondary to pain. She was readmitted because she had increasing pain in the right leg and back as well as loss of function in her leg. PHYSICAL EXAMINATION: EXTREMITIES: Today on exam, she has essentially 0/5 movement at the ankle, 5/5 extension of the knee, 0/5 flexion of the knee and 3-4/5 hip flexor. She has decreased sensation for approximately L2 down on the right leg only. She denies bowel or bladder dysfunction and her reflex in her knees and upper extremities are 2+/4, the ankles were 1/4. She had no long tract signs in either upper or lower extremities. LABORATORY DATA: The MRI of the lumbar spine was repeated on this admission, it is unchanged. There is no evidence of any neural compression or any nerve root compression. I reviewed the thoracic MRI from last admission, which was essentially normal. ASSESSMENT AND PLAN: At this point, I cannot explain her weakness and loss of sensation based upon neuro compression as there is none on the MRI, perhaps there is some vasculitis that occurred because of the infection, which affected the cauda equina or nerve roots. However, there is nothing surgical that is appropriate for this patient at this time. She should continue with her antibiotic coverage and other sources of this weakness should be evaluated. If you any further questions, do not hesitate to contact me. López Aguilar MD
[2018-04-05] MEDS ORDERED: Sodium Chloride 0.9% 1,000 ML IV SCH (09:45)
[2018-04-05 11:24] LABS: BASO # 0.06 K/mm3 (0.0-2.0); BASO % 0.5 % (0.0-3.0); EOS # 0.2 (0.0-0.7); EOS % 1.4 % (1.5-5.0); GRAN # 7.95 (1.4-6.5); GRAN % 67.4 % (50.0-68.0); HEMOGLOBIN 11.5 g/dL (12.0-16.0); LYMPH # 2.7 (1.2-3.4); LYMPH % 22.6 % (22.0-35.0); MEAN CELL VOLUME 89.2 fl (80.0-105.0); MEAN CORPUSCULAR HEMOGLOBIN 29.6 pg (25.0-35.0); MEAN CORPUSCULAR HGB CONC 33.1 g/dl (31.0-37.0); MEAN PLATELET VOLUME 8.7 fl (7.0-11.0); MONO % 8.1 % (1.0-6.0); RBC 3.89 10^6/uL (3.5-6.1); RED CELL DISTRIBUTION WIDTH 14.1 % (11.5-14.5); WHITE BLOOD COUNT 11.8 10^3/uL (4.5-11.0)
[2018-04-05 11:40] LABS: ALB/GLOB RATIO 1.3 (1.1-1.8); ALBUMIN 4.1 g/dL (3.0-4.8); ALT/SGPT 38 U/L (7-56); AST/SGOT 29 U/L (14-36); BLOOD UREA NITROGEN 17 mg/dL (7-21); CALCIUM 9.2 mg/dL (8.4-10.5); GFR NON-AFRICAN AMERICAN > 60
[2018-04-05] MEDS ORDERED: Lactobacillus Acidophilus 500 MU Cap PO SCH (19:45)
--- NOTE | 2018-04-06 01:17 | PN ---
DATE: 04/05/2018 SUBJECTIVE: The patient is 57-year-old. Seen and examined. Complaining of having generalized weakness, complaining of diarrhea since morning. She is having off and on diarrhea since she is on antibiotics. PHYSICAL EXAMINATION: VITAL SIGNS: She is afebrile. Pulse 86, respirations 20, blood pressure 121/75. LUNGS: Bilateral fair air flow. No rhonchi or crackle. HEART: S1 and S2 audible. ABDOMEN: Soft. Nontender. No rebound. No guarding. NEUROLOGIC: Patient is awake and alert. Able to communicate. She has left foot drop and decreased bilateral motor and sensory, below left knee altered sensation. Otherwise, neurologically she is awake, alert, oriented, and communicative. LABORATORY DATA: WBC is 11.8, hemoglobin 11.5, hematocrit 34.7, platelets 462. Chemistry: Sodium 141, potassium 4.4, chloride 106, CO2 21, BUN 17, creatinine 0.7, blood sugar 109. Blood cultures are negative. Full Clostridium difficile is pending. ASSESSMENT AND PLAN: We will continue the patient on daptomycin. We will continue on meropenem. The patient's oral intake is fair. I will discontinue IV fluids. Give her Bentyl p.r.n. for cramps and current physical therapy. We will reevaluate in a.m. for possible discharge plan. Nasra Sevilla MD
--- NOTE | 2018-04-06 06:53 | CP.PCM.PN ---
<Noni Riley - Last Filed: 04/06/18 13:37> Subjective - Date & Time of Evaluation Date of Evaluation: 04/06/18 Time of Evaluation: 06:52 - Subjective Subjective: ID progress note PGY-[address] Johnston T99.2 C diff not collected because pt has formed stool per RN Pt tolerated po diet bentyl x 1 10am dilaudid 2pm Pt is tired and not willing to talk Objective - Vital Signs/Intake and Output Vital Signs (last 24 hours): Temp Pulse Resp BP Pulse Ox 99.2 F 86 20 121/75 95 04/05/18 16:44 04/05/18 16:44 04/05/18 16:44 04/05/18 16:44 04/05/18 16:44 Intake and Output: 04/05/18 04/06/18 18:59 06:59 Intake Total 2590 800 Balance 2590 800 - Medications Medications: Current Medications Buspirone HCl (Buspar) 15 mg PO TID [facility] Last Admin: 04/05/18 17:32 Dose: 15 mg Clonazepam (Klonopin) 0.5 mg PO BID [facility]; Protocol Last Admin: 04/05/18 17:31 Dose: 0.5 mg Dicyclomine HCl (Bentyl) 10 mg PO QID PRN PRN Reason: cramps Docusate Sodium (Colace) 100 mg PO BID [facility] Last Admin: 04/05/18 17:30 Dose: Not Given Hydromorphone HCl (Dilaudid) 2 mg PO DAILY [facility] Last Admin: 04/05/18 10:14 Dose: 2 mg Hydromorphone HCl (Dilaudid) 1 mg PO 1400,1800 [facility] Last Admin: 04/05/18 17:31 Dose: 1 mg Daptomycin 400 mg/ Sodium (Chloride) 100 mls @ 200 mls/hr IV Q24H ANTOINETTE Stop: 04/08/18 23:59 Last Admin: 04/05/18 23:10 Dose: 200 mls/hr Meropenem (Merrem Iv 1 Gm Premix) 1 gm in 50 mls @ 100 mls/hr IVPB Q8 ANTOINETTE; Protocol Last Admin: 04/05/18 21:43 Dose: 100 mls/hr Lactobacillus Acidophilus (Bacid Acidophilus) 1 cap PO BID ANTOINETTE Mirtazapine (Remeron) 30 mg PO HS [facility] Last Admin: 04/05/18 21:43 Dose: 30 mg Non-Formulary Medication (Temazepam [Restoril]) 15 mg PO HS [facility] Last Admin: 04/06/18 06:18 Dose: Not Given Ondansetron HCl (Zofran Inj) 4 mg IVP Q6H PRN PRN Reason: Nausea/Vomiting Last Admin: 04/05/18 10:28 Dose: 4 mg Paroxetine HCl (Paxil) 40 mg PO DAILY [facility] Last Admin: 04/05/18 10:14 Dose: 40 mg Pregabalin (Lyrica) 50 mg PO BID [facility] Last Admin: 04/05/18 17:32 Dose: 50 mg Quetiapine Fumarate (Seroquel) 100 mg PO HS [facility]; Protocol Last Admin: 04/05/18 21:43 Dose: 100 mg - Labs Labs: 04/05/18 11:15 04/05/18 11:15 - Constitutional Appears: No Acute Distress - Head Exam Head Exam: ATRAUMATIC, NORMAL INSPECTION, NORMOCEPHALIC - Eye Exam Eye Exam: EOMI, Normal appearance, PERRL. absent: Scleral icterus Pupil Exam: NORMAL ACCOMODATION - ENT Exam ENT Exam: Mucous Membranes Moist - Neck Exam Additional comments: supple - Respiratory Exam Respiratory Exam: Clear to Ausculation Bilateral, Rales, NORMAL BREATHING PATTERN. absent: Rhonchi, Wheezes - Cardiovascular Exam Cardiovascular Exam: REGULAR RHYTHM, +S1, +S2. absent: Murmur - GI/Abdominal Exam GI & Abdominal Exam: Soft, Hyperactive Bowel Sounds. absent: Guarding, Rigid, Tenderness, Rebound - Extremities Exam Extremities Exam: absent: Calf Tenderness, Pedal Edema - Back Exam Back Exam: absent: CVA tenderness (L), CVA tenderness (R) - Neurological Exam Neurological Exam: Alert, Awake - Psychiatric Exam Psychiatric exam: Normal Affect, Normal Mood - Skin Skin Exam: Dry, Warm Assessment and Plan - Assessment and Plan (Free Text) Plan: Ms Nelson, 57 F, with PMH of heavy smoking, bipolar disorder, depression, and anxiety, was recently admitted for back pain and lower extremity weakness secondary to lumbar spinal discitis. She had 4-5 weeks of daptomycin and merrem. She is s/p dexamethasone. She is readmitted for new leg pain with tingling sensation. New leg weakness, numbness, foot drop possible due to irritation around nerve root or cauda equina secondary to resolving discitis/vertebral osteomyelitis at L4-5 s/p CT guided L3-4 space aspiration (02/21/08) while on antibiotics No evidence of neuronal compression per MRI New onset Diarrhea r/o c.diff history of UTI with Staph aureus (02/15/18) sciatica bipolar disorder, depression PICC line (inserted 02/23/18) Aspirin and tylenol side effect-nausea Plan continue Daptomycin and merrem (day 3) in addition to prior 4-5 weeks of treatment. Pt will need 2 more weeks of antibiotics on both dapto and merrem. After discharge, pt needs weekly labs on CBC with differential, CMP, ESR, CRP, CPK. Repeat MRI lumbar in 3 month and follow up with PMD. Patiño for pain control Neurosurgery on board Physical therapy and rehab blood culture neg thus far Imaging/Culture MRI lumbar w/o contrast (04/04): L3-4 diskitis and epidural abscess with marrow edema, unchanged, no acute finding. MRI thoracic w/o contrast (02/17): unremarkable Urine culture (02/15) MSSA Spinal abscess culture (02/20): negative culture, no fungus. No mycobacterial. no anaerobes. ESR 40 (52) CRP <5 (38) CPK 46 (normal) blood culture via PICC neg x 1 d blood culture via peripheral neg x 2d s/r/d/w Dr Johnston <Delvis Johnston S - Last Filed: 04/06/18 23:00> Objective - Vital Signs/Intake and Output Vital Signs (last 24 hours): Temp Pulse Resp BP Pulse Ox 98.3 F 84 18 134/89 96 04/06/18 07:57 04/06/18 07:57 04/06/18 07:57 04/06/18 07:57 04/06/18 07:57 - Labs Labs: 04/05/18 11:15 04/05/18 11:15 Assessment and Plan - Assessment and Plan (Free Text) Plan: Infectious diseases Attending Physician Attestation Patient seen and examined, discussed with medical staff coordinator. I have reviewed the patient's history of present illness, past medical, social, personal and family histories, pertinent physical exam findings, course so far in this hospital admission, pertinent laboratory and imaging results. I agree with the above findings, assessment and plan.
[2018-04-06 07:58] VITALS: BP 134/89; PULSE 84; RESP 18; TEMP 98.3; O2SAT 96
--- NOTE | 2018-04-06 12:43 | RAD ---
Date of service: 04/06/2018 PROCEDURE: Left Foot Radiographs. HISTORY: pain COMPARISON: None. FINDINGS: BONES: Normal. No fracture. JOINTS: Normal. SOFT TISSUES: Normal. OTHER FINDINGS: None. IMPRESSION: Normal left foot radiographs.
[2018-04-06] MEDS: Meropenem IV 1 gm in NS 1 GM/50 ML BAG IVPB SCH (14:04)
--- NOTE | 2018-04-07 08:31 | DS ---
HISTORY OF PRESENT ILLNESS: The patient is a 57-year-old, seen and examined. Still complains of feeling weak, complains of left foot pain. No nausea or vomiting. Does not have much appetite. PHYSICAL EXAMINATION: VITAL SIGNS: She is afebrile, pulse 84, respirations 18, and blood pressure 134/89. LUNGS: Bilateral fair airflow. No rhonchi or crackle. HEART: S1 and S2 audible. ABDOMEN: Soft and nontender. No rebound. No guarding. NEUROLOGIC: The patient is awake, alert, oriented, communicative. LABORATORY DATA: Her left foot x-ray is pending. ASSESSMENT: 1. Left lower extremity weakness and numbness. Head MRI done; no significant change. 2. Lumbosacral radiculopathy. 3. Ascites. 4. Left foot drop. PLAN: We will order for left foot AFO. We will follow up left foot x-ray. ID to determine the duration of antibiotics. The patient has PICC line. We will finish her course of antibiotics at home. Nasra Sevilla MD
== END 2018-04-06 17:25 | disposition home or self-care (01) | DRG 541 ==
LOC: ED 12:07 → ERH 15:48 → 3RSO 20:35
PROVIDERS: ADMIT Internal Medicine; ATTEND Internal Medicine
DX: M46.26 Osteomyelitis of vertebra, lumbar region (principal); M46.46 Discitis, unspecified, lumbar region; F41.9 Anxiety disorder, unspecified; G89.29 Other chronic pain; R53.1 Weakness; F31.9 Bipolar disorder, unspecified; M21.372 Foot drop, left foot; Z87.440 Personal history of urinary (tract) infections; Z87.891 Personal history of nicotine dependence

== ENCOUNTER 2018-04-25 13:14 | Outpatient (CLI) | payer MEDICARE | END 2018-04-25 13:15 | disposition home or self-care (01) | LOC: RAD 13:14 ==